=== PATIENT | female | born 1980 | race Caucasian/White ===

== ENCOUNTER 2020-06-07 20:02 | Inpatient (IN) | payer MEDICAID, SELFPAY ==
[2020-06-07 20:20] VITALS: BP 132/89; PULSE 116; RESP 35; TEMP 36.7; O2SAT 94; BMI 17.6
--- NOTE | 2020-06-07 20:24 | ED_ITS ---
HPI - Chest Pain General: Chief Complaint: Chest Pain Stated Complaint: cp/sob Time Seen by Provider: 06/07/20 20:23 History of Present Illness: HPI narrative: 40-year-old female comes in with chest pain. She states that on Thursday she thinks she may have aspirated. She states Thursday she woke up coughing and coughing and coughing. She states since that time she is having difficulty breathing. She has not had pneumonia or bronchitis previously. She states she started having chest pain yesterday. She points to the right side of her chest. She denies any arm, neck or jaw pain. Patient states that she smokes up to 3 packs/day. She denies fever c hills. No nausea or vomiting. No abdominal pain. MD complaint: chest pain (Right-sided chest pain.) Onset (ago): day(s) (She started coughing on Thursday with chest pain) Timing of current episode: constant Prior episodes: No Onset: during rest and awoke with symptoms Pain location: right chest Pain radiation: none Pain scale (0-10): 10 Quality: other (She states it feels like a charley horse in her chest.) Relieving factors: nothing Exacerbating factors: inspiration Associated symptoms: Reports dyspnea; Deny abdominal pain, diaphoresis, fever(s), nausea, palpitations, syncope or vomiting Treatment prior to arrival: none Review of Systems Narrative: 40-year-old female comes in with chest pain. She appears to be in mild distress. Const: Denies: fever(s), chills, body aches, fatigue, night sweats or diaphoresis Card: Reports: chest pain (Current chief complaint of chest pain), dyspnea on exertion and orthopnea; Denies: palpitations, irregular heart rhythm, edema, swelling of feet/ankles, lightheadedness, syncope or leg pain with exertion Resp: Reports: dyspnea, productive cough (Clear phlegm) and pain on inspiration; Denies: wheezing, change in phlegm color or hemoptysis GI: Denies: abdominal pain, nausea or vomiting : Denies: flank pain, difficulty voiding or dysuria Musc: Denies: neck pain Skin/Breast: Denies: rash or changes in skin color Neuro: Denies: headache(s), numbness in extremities, weakness in extremities, lack of coordination, difficulty walking, dizziness, vertigo, confusion or Slurred speech present Psych: Reports: anxiety PFSH ED PFSH: Medical History Marijuana abuse Smoker Surgical History (Updated 06/07/20 @ 22:33 by Jessee Figueroa MD) H/O: hysterectomy Family History (Updated 06/07/20 @ 22:35 by Jessee Figueroa MD) Mother Atelectasis Social History (Updated 06/07/20 @ 22:35 by Jessee Figueroa MD) Smoking and tobacco status: current every day smoker cigarettes [ Other cigarette details: Smokes 2 to 3 packs a day ] Alcohol intake: never Substance/Drug Use: current Substance/Drug use type: Marijuana Female Reproductive History: Date of last menstrual period: 06/05/20 Physical Exam Narrative: EXAM NARRATIVE: Patient appears to be having right-sided chest pain. Const: COMMON NORMALS: average body habitus, patient oriented x3, healthy appearing, alert and well nourished ORIENTATION/CONSCIOUSNESS: Yes oriented to person, Yes oriented to place and Yes oriented to time Eye: COMMON NORMALS: Equal, round and reactive pupils present, EOMs intact bilaterally and conjunctivae normal CONJUNCTIVA: Yes conjunctivae normal PUPIL: Yes Equal, round and reactive pupils present Neck/C-Spine: COMMON NORMALS: full ROM GENERAL: Yes normal visual inspection Chest: COMMONS NORMALS: normal inspection of the chest and normal palpation of entire chest wall Resp: EFFORT & INSPECTION: Yes able to speak in complete sentences, Yes respiratory distress (Mild respiratory distress.), Yes decreased respiratory effort, No audible wheezes, No tracheal deviation and No prolonged expiratory phase AUSCULTATION: no crackles, no rales, no rhonchi, no wheezes and diminished lung sounds Cardio: COMMON NORMALS: regular rhythm and Peripheral pulses 2+ throughout PALPATION: normal PMI RATE: tachycardic (Sinus tachycardia) RHYTHM: regular rhythm PERIPHERAL PULSES: Peripheral pulses 2+ throughout GI: COMMON NORMALS: Normal to inspection, nondistended, normoactive bowel sounds present, Soft to palpation, non-tender, No hepatosplenomegaly present, no masses and no bruits PALPATION: Yes Soft to palpation and Yes No hepatosplenomegaly present : COMMON NORMALS: Yes no CVA tenderness BLADDER/KIDNEY EXAM: Yes no CVA tenderness Back/Pelvis: COMMON NORMALS: no CVA tenderness Extremity: COMMON NORMALS: normal to inspection, full ROM, capillary refill normal, no calf tenderness and no pedal edema Neuro: COMMON NORMALS: patient oriented x3, moves all extremities and no focal motor deficits SENSORIUM/ORIENTATION: Yes alert, Yes oriented to person, Yes oriented to place and Yes oriented to time Psych: COMMON NORMALS: mental status grossly normal, Normal thought process present, cooperative, normal affect and speech normal ATTITUDE: Yes Other attitude/behavior findings present (Psych) (Mildly anxious.) SPEECH: Yes normal speech THOUGHT PROCESS: Normal thought process present Skin: COMMON NORMALS: no rashes or lesions noted, no wounds, turgor normal, no jaundice, no petechiae and no mottling GENERAL SKIN EXAM: no rashes or lesions noted and turgor normal Procedures Chest Tube Chest Tube 1: Chest Tube Location: left and mid axillary line Size of Tube (cm): 28 Chest Tube Prep: Yes betadine prep and sterile drapes applied Local Anesthetic: lidocaine 1% Amount of anesthesia used (mL): 12 (Lidocaine 1%) Incision Made With: #11 blade Post Procedure: sutured to skin and sterile dressing applied Tube Drainage: none Post Procedure CXR?: Yes Patient Tolerated Procedure: Yes Complications: pain Course Vital Signs: Vital signs: Vital Signs Temperature 98.0 F 06/07/20 20:20 Pulse Rate 109 H 06/07/20 22:20 Respiratory Rate 24 H 06/07/20 22:20 Blood Pressure 108/87 06/07/20 22:20 Pulse Oximetry 92 06/07/20 22:20 MDM - Chest Pain Lab Data: Labs: Lab Results 06/07/20 06/07/20 06/07/20 Range/Units 20:44 20:44 20:44 WBC 21.2 H (4.0-10.0) 10^3/ uL RBC 5.62 H (4.1-5.3) 10^6/u L Hgb 17.1 H (11.5-15.3) g/dL Hct 51.3 H (37.0-47.0) % MCV 91.3 (81-99) fL MCH 30.4 (28.0-34.0) pg MCHC 33.3 (30.0-36.0) g/dL RDW 13.3 (12.1-15.1) % Plt Count 490 H (130-400) 10^3/c mm MPV 9.5 (7.4-10.4) fL Neut % (Auto) 76.5 % Lymph % (Auto) 18.0 % [place] % (Auto) 4.5 % Eos % (Auto) 0.1 % Baso % (Auto) 0.5 % Neut # (Auto) 16.25 H (1.8-7.7) 10^3/u L Lymph # (Auto) 3.8 (0.8-4.8) 10^3/u L [place] # (Auto) 1.0 H (0.2-0.9) 10^3/u L Eos # (Auto) 0.0 (0.0-0.8) 10^3/u L Baso # (Auto) 0.1 (0.0-0.1) 10^3/u L Nucleated RBC % (a uto) 0 % Nucleated RBCs # 0.0 /100WBC Sodium 139 (136-145) mmol/L Potassium 4.7 (3.5-5.1) mmol/L Chloride 103 (98-107) mmol/L Carbon Dioxide 21 L (22-29) mmol/L Anion Gap 19.7 H (5-19) BUN 10 (6-20) mg/dL Creatinine 0.7 (0.5-0.9) mg/dL GFR Calculation 93.2 (90-130) mL/min Glucose 122 H (65-115) mg/dL Calculated Osmolal ity 288 (285-295) mOsm/k g Calcium 10.2 (8.5-10.5) mg/dL Total Bilirubin 0.8 (0.15-1.2) mg/dL AST 14 (0-32) U/L ALT 14 (0-33) U/L Alkaline Phosphata se 104 (35-105) IU/L Troponin T Baselin e 6 (0-10) ng/L Total Protein 7.7 (6.6-8.7) g/dL Albumin 5.0 (3.5-5.2) g/dL Globulin 2.7 (1.3-4.6) g/dL Urine Color (Yellow) Urine Appearance (CLEAR) Urine pH (5-7) Ur Specific Gravit y (1.005-1.030) Urine Protein (Negative) Urine Glucose (UA) (Normal) Urine Ketones (Negative) Urine Blood (Negative) Urine Nitrate (Negative) Urine Bilirubin (Negative) Urine Urobilinogen (Negative) mg/dL Ur Leukocyte Noemí ase (Negative) Urine RBC (0-2) /hpf Urine WBC (0-5) /hpf Ur Squamous Epith Cells (0-5) /hpf Amorphous Sediment Urine Bacteria (NONE) /hpf Urine Mucus /hpf Urine Opiates Scre en (Negative) ng/mL Ur Barbiturates Sc reen (Negative) ng/mL Ur Phencyclidine S crn (Negative) ng/mL Ur Amphetamines Sc reen (Negative) ng/mL U Benzodiazepines Scrn (Negative) ng/mL Urine Cocaine Scre en (Negative) ng/mL U Marijuana (THC) Screen (Negative) ng/mL 06/07/20 06/07/20 Range/Units 20:53 20:53 WBC (4.0-10.0) 10^3/ uL RBC (4.1-5.3) 10^6/u L Hgb (11.5-15.3) g/dL Hct (37.0-47.0) % MCV (81-99) fL MCH (28.0-34.0) pg MCHC (30.0-36.0) g/dL RDW (12.1-15.1) % Plt Count (130-400) 10^3/c mm MPV (7.4-10.4) fL Neut % (Auto) % Lymph % (Auto) % [place] % (Auto) % Eos % (Auto) % Baso % (Auto) % Neut # (Auto) (1.8-7.7) 10^3/u L Lymph # (Auto) (0.8-4.8) 10^3/u L [place] # (Auto) (0.2-0.9) 10^3/u L Eos # (Auto) (0.0-0.8) 10^3/u L Baso # (Auto) (0.0-0.1) 10^3/u L Nucleated RBC % (a uto) % Nucleated RBCs # /100WBC Sodium (136-145) mmol/L Potassium (3.5-5.1) mmol/L Chloride (98-107) mmol/L Carbon Dioxide (22-29) mmol/L Anion Gap (5-19) BUN (6-20) mg/dL Creatinine (0.5-0.9) mg/dL GFR Calculation (90-130) mL/min Glucose (65-115) mg/dL Calculated Osmolal ity (285-295) mOsm/k g Calcium (8.5-10.5) mg/dL Total Bilirubin (0.15-1.2) mg/dL AST (0-32) U/L ALT (0-33) U/L Alkaline Phosphata se (35-105) IU/L Troponin T Baselin e (0-10) ng/L Total Protein (6.6-8.7) g/dL Albumin (3.5-5.2) g/dL Globulin (1.3-4.6) g/dL Urine Color Yellow (Yellow) Urine Appearance Clear (CLEAR) Urine pH 5.0 (5-7) Ur Specific Gravit y 1.025 (1.005-1.030) Urine Protein Trace (Negative) Urine Glucose (UA) Norm (Normal) Urine Ketones 2+ H (Negative) Urine Blood 3+ H (Negative) Urine Nitrate Negative (Negative) Urine Bilirubin Neg (Negative) Urine Urobilinogen Norm (Negative) mg/dL Ur Leukocyte Noemí ase Negative (Negative) Urine RBC 5-10 H (0-2) /hpf Urine WBC 0-4 H (0-5) /hpf Ur Squamous Epith Cells 5-10 H (0-5) /hpf Amorphous Sediment Not Reportable Urine Bacteria 1+ H (NONE) /hpf Urine Mucus 2+ /hpf Urine Opiates Scre en Negative (Negative) ng/mL Ur Barbiturates Sc reen Negative (Negative) ng/mL Ur Phencyclidine S crn Negative (Negative) ng/mL Ur Amphetamines Sc reen Negative (Negative) ng/mL U Benzodiazepines Scrn Negative (Negative) ng/mL Urine Cocaine Scre en Negative (Negative) ng/mL U Marijuana (THC) Screen Positive H (Negative) ng/mL Discharge Plan Discharge Patient Disposition: Admitted As Inpatient Clinical Impression: Pneumothorax Qualifiers: Pneumothorax type: spontaneous, primary Qualified Code(s): J93.11 - Primary spontaneous pneumothorax Condition: Stable Coding Level of Care Code ED It Project Manager for [facility] Fwd Exam Comprehensive
--- NOTE | 2020-06-07 20:33 | XR_ITS ---
WS: [id number] Portable AP upright chest, 06/07/2020 Clinical Data: Chest pain, possible aspiration Comparison: None. Findings: There is a complete right pneumothorax with a small right effusion. No subcutaneous emphyse ma is seen. The left lung is normal. The heart is normal. Monitor leads are on the chest and abdomina l carmona. XR/XR chest 1V portable [id number] Impression: 100% right pneumothorax.
[2020-06-07 20:57] LABS: Basophils # 0.1 10^3/uL (0.0-0.1); Basophils % 0.5 %; Eosinophils % 0.1 %; Hematocrit 51.3 % (37.0-47.0); Hemoglobin 17.1 g/dL (11.5-15.3); Lymphocytes # 3.8 10^3/uL (0.8-4.8); Mean Corpuscular HGB Conc 33.3 g/dL (30.0-36.0); Mean Corpuscular Hemoglobin 30.4 pg (28.0-34.0); Mean Corpuscular Volume 91.3 fL (81-99); Mean Platelet Volume 9.5 fL (7.4-10.4); Monocytes % 4.5 %; Neutrophils # 16.25 10^3/uL (1.8-7.7); Neutrophils % 76.5 %; Nucleated Red Blood Cells % 0 %; Platelet Count 490 10^3/cmm (130-400); Red Blood Count 5.62 10^6/uL (4.1-5.3); Red Cell Distribution Width 13.3 % (12.1-15.1); White Blood Count 21.2 10^3/uL (4.0-10.0)
[2020-06-07 21:17] LABS: Alanine Aminotransferase 14 U/L (0-33); Alkaline Phosphatase 104 IU/L (35-105); Anion Gap 19.7 (5-19); Aspartate Amino Transferase 14 U/L (0-32); Blood Urea Nitrogen 10 mg/dL (6-20); Calcium 10.2 mg/dL (8.5-10.5); Carbon Dioxide 21 mmol/L (22-29); Chloride 103 mmol/L (98-107); Globulin 2.7 g/dL (1.3-4.6); Glomerular Filtration Rate 93.2 mL/min (90-130); Glucose 122 mg/dL (65-115); Osmolality Calculated 288 mOsm/kg (285-295); Potassium 4.7 mmol/L (3.5-5.1); Sodium 139 mmol/L (136-145); Total Bilirubin 0.8 mg/dL (0.15-1.2); Total Protein 7.7 g/dL (6.6-8.7)
[2020-06-07 21:18] LABS: Troponin(5th) Baseline 6 ng/L (0-10)
[2020-06-07] MEDS: morphine 4 mg/mL SDV 1 mL 2 MG IVP ×2 (21:30→22:06)
[2020-06-07 21:52] LABS: Add Urine Microscopic? YES; Bilirubin Urine Neg (Negative); Blood Urine 3+ (Negative); Glucose Urine UA Norm (Normal); Ketones Urine 2+ (Negative); Leukocyte Esterase Urine Negative (Negative); Nitrate Urine Negative (Negative); Protein Urine Trace (Negative); Specific Gravity, Urine 1.025 (1.005-1.030); Urine Appearance Clear (CLEAR); Urine Color Yellow (Yellow); Urobilinogen Urine Norm (Negative)
[2020-06-07 21:53] LABS: Add Urine Culture? No; Bacteria Urine 1+ /hpf; Mucus Urine 2+ /hpf; WBC Urine 0-4 /hpf (0-5)
[2020-06-07 21:54] LABS: Amphetamines Screen Urine Negative (Negative); Barbiturates Screen Urine Negative (Negative); Benzodiazepines Screen Urine Negative (Negative); Cocaine Screen Urine Negative (Negative); Opiate Screen Urine Negative (Negative); PCP Screen Urine Negative (Negative); THC Screen Urine Positive (Negative)
--- NOTE | 2020-06-07 22:04 | XR_ITS ---
WS: [id number] Portable AP upright chest, 06/07/2020, 2153 hours Clinical Data: POST CHEST TUBE Comparison: Portable chest, yesterday, 2038 hours Findings: A right chest tube has been inserted. The right lung has reexpanded and there is a Wesley X V percent right apical pneumothorax. The right lower lobe and right middle lobe has expanded complete ly. XR/XR chest 1V portable [id number] Impression: Insertion of right chest tube with reexpansion of right lung and only a small r ight apical pneumothorax persists.
[2020-06-07] MEDS: LORazepam 2 mg/mL INJ 1 mL 1 MG IVP (22:05)
[2020-06-07 22:20] VITALS: BP 108/87; PULSE 109; RESP 24; O2SAT 92
--- NOTE | 2020-06-07 22:30 | PM.HP ---
Providers/Chief Complaint Chief Complaint: cp/sob History of Present Illness Sylvia Snell is a 40 year old female who does not have significant past medical history other than marijuana abuse and nicotine dependence presented today with chief complaint of right-sided chest pain. Patient is stating that on Thursday she was eating her cereal when she choked on her food, she had extensive bouts of cough, after this aspiration episode she started having right-sided chest pain and next 12 hours, her pain persisted for next 1 day, she did not notice any fever, nausea, vomiting, diarrhea, dysuria. She decided to come to the hospital for worsening of right-sided chest discomfort. Diagnostics in the ER revealed spontaneous pneumothorax, chest tube was placed by Dr. Goodman, 28 Tanzanian chest tube placed with good expansion of right lung She is tachycardic and tachypneic because of pain, she has no source of infection, leukocytosis 21, chest x-ray does not show any consolidation, polycythemia on CBC, drug screen positive for marijuana, EKG showing sinus tachycardia, repeat chest x-ray showing good inflation of right lung with residual pneumothorax 2% Hemodynamically patient is stable Review of Systems Const: Reports: chills, body aches and fatigue; Denies: fever(s) Eyes: Denies: change in vision ENMT: Denies: throat pain Card: Reports: chest pain and dyspnea on exertion Resp: Reports: dyspnea, non-productive cough and pain on inspiration GI: Denies: abdominal pain : Denies: flank pain Musc: Denies: neck pain Skin/Breast: Denies: rash Neuro: Denies: headache(s) Psych: Reports: anxiety Endo: Denies: polyuria Moe/Lymph: Denies: easy bruising All/Imm: Denies: urticaria Medications/Allergies Allergies Allergy/AdvReac Type Severity Reaction Status Date / Time Unable to Assess Allergy Unverified 06/07/20 20:23 PFSH Acute PFSH: Medical History Marijuana abuse Smoker Surgical History H/O: hysterectomy Family History Mother Atelectasis Social History Smoking and tobacco status: current every day smoker cigarettes [ Other cigarette details: Smokes 2 to 3 packs a day ] Alcohol intake: never Substance/Drug Use: current Substance/Drug use type: Marijuana Female Reproductive History: Date of last menstrual period: 06/05/20 Vitals/I&O/Wt Last Vital Signs Temp 98.0 F 06/07/20 20:20 Pulse 109 H 06/07/20 22:20 Resp 24 H 06/07/20 22:20 BP 108/87 06/07/20 22:20 Pulse Ox 92 06/07/20 22:20 Weight last 48 hrs Weight 45.359 kg Physical Exam Narrative: EXAM NARRATIVE: Thin young female Currently in distress because of placement of chest tube, she has 28 Tanz[place] right mid axillary chest tube Chest tube drainage system is not showing any continuous bubbling, no active drainage, patient is saturating well on room air Normal hemodynamics S1, S2 sinus tachycardia Abdomen soft nontender bowel sound present Lower extremity no edema gangrene ulcer No acute respite distress Appropriate mood and affect EOMI, PERRLA No neurological deficit Data : 06/07/20 20:44 06/07/20 20:44 A&P Assessment and plan (1) Spontaneous pneumothorax: Spontaneous pneumothorax resolved 28 Tanzanian chest tube with satisfactory placement No signs of hemothorax, however still has 10 to 15% pneumothorax Hemodynamically stable No recent trauma Patient endorses to smoking heavily We will monitor in ICU overnight Would recommend her to follow-up with gas regulator repairer, I do not notice any abnormal transaminases, alpha-1 antitrypsin level deficiency suspicion low at this point Status: Acute (2) Leukocytosis: Patient's leukocytosis tachypnea tachycardia secondary to pain and spontaneous pneumothorax I do not see any source of infection, I would avoid adding antibiotics for now would request D-dimer and procalcitonin level We will start her on maintenance fluid to see if that would affect her heart rate Status: Acute (3) Nicotine dependence: Patient counseled extensively to quit smoking, Status: Acute Attestations Medical Necessity Statement*: Anticipating stay in the hospital to cross more than 2 midnights currently she requires ICU because of spontaneous pneumothorax and placement of chest tube in the ER currently hemodynamically stable Time Spent in Patient Care: (>than 50% of time spent in counselling and/or direct pt care on unit). 50mins Coding Level of Care Code Acute Qualitative Researcher for 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
--- NOTE | 2020-06-07 22:32 | PC.NURSE ---
EKG done at 2230 and shown to ER doctor
--- NOTE | 2020-06-07 22:33 | ECG_ITS ---
[facility] Test Date: 2020-06-07 Pat Name: Sylvia Snell Department: Room: Gender: Female Associate Veterinarian: : 1980 Requested By: Omar Valverde Order Number: [id number] Naina MD: Alena Edwards M.D. Measurements Intervals [place] Rate: 107 P: 94 ND: 127 QRS: -71 QRSD: 94 T: 79 QT: 322 QTc: 430 Interpretive Statements SINUS TACHYCARDIA RIGHT ATRIAL ENLARGEMENT [0.3mV P WAVE] LEFT AXIS DEVIATION [QRS AXIS < -30] INCOMPLETE RIGHT BUNDLE BRANCH BLOCK [90+ ms QRS DURATION, TERMINAL R IN V1/V2, 40+ ms S IN I/aVL/V4/V5/V6] No previous ECG available for comparison Electronically Signed On 06-08-2020 19:13:43 MARKETING SUPPORT COORDINATOR by Alena Edwards M.D. [email or web address]
[2020-06-07] MEDS: morphine 4 mg/mL SDV 1 mL IVP (22:36)
[2020-06-07 22:45] VITALS: BP 119/77; PULSE 107; RESP 22; O2SAT 94
[2020-06-07 22:58] LABS: Troponin 5 2HR 7.37 ng/L (0-10); Troponin 5 2HR Delta 1.37 ABS# (0-10)
[2020-06-07 23:44] LABS: D Dimer <= 0.27 ug/mIFEU (0-0.59)
[2020-06-07 23:51] VITALS: PULSE 92; RESP 28
[2020-06-07] MEDS: HYDROmorphone 1 mg/mL INJ 1 mL IVP (23:54)
[2020-06-07] MEDS: ondansetron 2 mg/ML SDV 2 mL 4 MG IVP (23:54)
[2020-06-07] MEDS: sodium chloride 0.9% 1,000 ML 75 ML IV (23:59)
[2020-06-08] VITALS (57 sets, daily range): BP systolic 95–146; BP diastolic 65–94; PULSE 60–105; RESP 13–54; TEMP 36.6; O2SAT 81–100
--- NOTE | 2020-06-08 00:06 | XR_ITS ---
WS: [id number] Portable AP upright chest, 06/08/2020, 2408 hours. Clinical Data: verify chest tube placement Comparison: Portable chest, yesterday, 2153 hours. Findings: There is no change from the prior chest x-ray. The right chest tube remains in the right pl eural space ending at the level of the right seventh rib. The right apical pneumothorax of 10-15% per sists. The right middle lobe and right lower lobe have reexpanded. XR/XR chest 1V portable [id number] Impression: No change from prior chest x-ray.
[2020-06-08 00:30] LABS: Procalcitonin 0.05 ng/mL (0-0.5)
[2020-06-08] MEDS: HYDROmorphone 1 mg/mL INJ 1 mL IVP ×10 (00:33→23:14)
--- NOTE | 2020-06-08 00:39 | XR_ITS ---
WS: [id number] Portable AP upright chest, 06/08/2020, 2436 hours Clinical Data: chest tube movement Comparison: Portable chest, today, 2408 hours. Findings: The right chest tube has been ingested but there is recurrence of the right pneumothorax. T here is a small amount of subcutaneous emphysema adjacent to the right fifth rib. XR/XR chest 1V portable [id number] Impression: 1. Recurrence of right pneumothorax. 2. Right chest tube has been minimally adjusted.
[2020-06-08] MEDS: lidocaine 1% INJ 20 mL INJECTION (00:53)
[2020-06-08 02:37] LABS: Basophils # 0.1 10^3/uL (0.0-0.1); Basophils % 0.3 %; Hematocrit 44.3 % (37.0-47.0); Hemoglobin 14.7 g/dL (11.5-15.3); Lymphocytes # 1.4 10^3/uL (0.8-4.8); Lymphocytes % 5.9 %; Mean Corpuscular HGB Conc 33.2 g/dL (30.0-36.0); Mean Corpuscular Hemoglobin 30.4 pg (28.0-34.0); Mean Corpuscular Volume 91.7 fL (81-99); Mean Platelet Volume 9.5 fL (7.4-10.4); Monocytes # 1.4 10^3/uL (0.2-0.9); Monocytes % 5.8 %; Neutrophils # 21.07 10^3/uL (1.8-7.7); Neutrophils % 87.5 %; Nucleated Red Blood Cells % 0 %; Platelet Count 420 10^3/cmm (130-400); Red Blood Count 4.83 10^6/uL (4.1-5.3); Red Cell Distribution Width 13.3 % (12.1-15.1); White Blood Count 24.1 10^3/uL (4.0-10.0)
[2020-06-08 03:22] LABS: Anion Gap 17.2 (5-19); Blood Urea Nitrogen 11 mg/dL (6-20); Calcium 8.8 mg/dL (8.5-10.5); Carbon Dioxide 21 mmol/L (22-29); Chloride 106 mmol/L (98-107); Glomerular Filtration Rate 111.3 mL/min (90-130); Glucose 130 mg/dL (65-115); Osmolality Calculated 291 mOsm/kg (285-295); Potassium 4.2 mmol/L (3.5-5.1); Sodium 140 mmol/L (136-145); Troponin 5 6HR 6.81 ng/L (0-10); Troponin 5 6HR Delta 0.81 ng/L (0-12)
--- NOTE | 2020-06-08 06:00 | XR_ITS ---
WS: [id number] Portable AP upright chest, 06/08/2020, 0522 hours Clinical Data: pneumothorax Comparison: Portable chest, today, 2436 hours Findings: The right chest tube has been repositioned and it ends near the right apex. The right apica l pneumothorax as disappeared. There is a small right basilar pneumothorax. XR/XR chest 1V portable [id number] Impression: 1. Right chest tube has been repositioned into the right apex and the right api meagan pneumothorax is no longer present. 2. Small right basilar pneumothorax.
[2020-06-08] MEDS: HYDROmorphone 1 mg/mL INJ 1 mL 0.5 MG IVP (06:13)
[2020-06-08] MEDS: sodium chloride 0.9% 1,000 ML 75 ML IV ×2 (08:10→21:18)
--- NOTE | 2020-06-08 08:25 | PC.NURSE ---
pain medication given at this time per pt request
--- NOTE | 2020-06-08 09:02 | PM.CONSULT ---
Providers/Reason For Consult Consulting Physican/Specialty*: General Surgery Johnny Falk MD Reason for Consult*: Spontaneous right pneumothorax, status post chest tube placement. Attending Physician: Jessee Figueroa MD History of Present Illness History of Present Illness Sylvia Snell is a 40 year old female who was eating cereal the evening before last and choked for about a minute when it went down the wrong pipe. The following day she awoke in the afternoon and had right-sided chest pain. She became more short of breath as the day went on and came to the emergency room where imaging revealed a right-sided pneumothorax. A chest tube was placed in the emergency room. The patient says this is never happened to her before but her mom had the same problem. Review of Systems General: Reports: 10 or more systems reviewed and unremarkable except in HPI and below Card: Reports: chest pain (With deep breaths) Meds/Allergies Home Medications and Allergies Allergies Allergy/AdvReac Type Severity Reaction Status Date / Time Unable to Assess Allergy Unverified 06/07/20 20:23 Current Medications Current Medications Generic Name Dose Route Start Last Admin Trade Name Freq PRN Reason Stop Dose Admin Hydromorphone HCl 1 mg 06/08/20 00:23 06/08/20 08:10 Hydromorphone 1 Mg/Ml Inj 1 Ml IVP 1 mg Q2H PRN Administration PAIN Sodium Chloride 1,000 mls @ 75 mls/hr 06/07/20 23:31 06/08/20 08:10 Sodium Chloride 0.9% IV 75 mls/hr .[id number] KEZIA Administration PFSH Acute PFSH: Medical History Marijuana abuse Smoker Surgical History (Updated 06/08/20 @ 09:10 by Johnny Falk MD) Status post chest tube placement right -- 05/2020 Family History Mother Atelectasis Social History Smoking and tobacco status: current every day smoker cigarettes [ Other cigarette details: Smokes 2 to 3 packs a day ] Alcohol intake: never Substance/Drug Use: current Substance/Drug use type: Marijuana Female Reproductive History: Date of last menstrual period: 06/05/20 Vitals/I&O/Wt Last Vital Signs Temp 97.8 F 06/08/20 06:00 Pulse 69 06/08/20 08:00 Resp 16 06/08/20 08:00 BP 108/78 06/08/20 08:00 Pulse Ox 98 06/08/20 08:00 06/07/20 06/08/20 06/08/20 22:59 06:59 14:59 Intake Total 763.75 / 763.75 Output Total 150 / 150 Balance -150 / -150 763.75 / 763.75 Weight last 48 hrs Weight 100 lb Physical Exam Narrative: EXAM NARRATIVE: The patient was seen in her room in the intensive care unit. She does not appear to be in any distress. The pupils seem equal. No carotid bruits are heard. The chest reveals symmetric apical air movement. The heart is regular. The abdomen is soft. The extremities reveal no edema. The chest tube reveals a small intermittent air leak. Urinary Catheter Management^: Pelayo: Cath Placed During This Visit: yes Reason for Continuing Indwelling Catheter: Accurate Measurement of Urinary Output in Critically Ill Patients Urinary Catheter Date of Insertion: 06/08/20 Urinary Catheter Time of Insertion: 01:34 A&P Assessment and plan (1) Spontaneous pneumothorax: The patient is status post right-sided chest tube placement in the emergency room. This apparently became partially dislodged when she was being transferred to the intensive care unit and had to be advanced once again. Her current x-ray shows almost complete resolution of her right-sided pneumothorax, but she does have what appears to be an intermittent air leak. I have spoken to Dr. Boyce from thoracic surgery. He is not planning on being available over the weekend so I will be happy to continue following the patient for now. If she has any kind of a persistent air leak after the weekend, however, I will advise getting him involved. Status: Acute Consult Attestations Medical Necessity Statement: See admitting service's notation. Coding Level of Care Code Acute Carry Out Clerk for Herm[facility] Diagnoses Spontaneous pneumothorax J93.83
--- NOTE | 2020-06-08 09:56 | PC.NURSE ---
Dr Falk here exam pt and chest tube at this time .. small leak noted and pain medicine given encourage to cough and deep breath
--- NOTE | 2020-06-08 12:12 | P.PN_ITS ---
Subjective Subjective: Interval history: Noted improvement in respiratory status however c/o chest pain at site of chest tube insertion, GS consulted. Medications: Reviewed: Yes Vitals/I&O/Wt Last Vital Signs Temp 97.8 F 06/08/20 06:00 Pulse 73 06/08/20 10:43 Resp 17 06/08/20 10:40 BP 113/79 06/08/20 10:00 Pulse Ox 97 06/08/20 10:40 06/07/20 06/08/20 06/08/20 22:59 06:59 14:59 Intake Total 763.75 / 763.75 Output Total 150 / 150 Balance -150 / -150 763.75 / 763.75 Weight last 48 hrs Weight 45.359 kg Physical Exam Narrative: EXAM NARRATIVE: Thin young female General - NAD, Awake alert Chest : Decrease BS at Right base - Chest tube drainage system is not showing any continuous bubbling, no active drainage CVS : S1, S2 sinus tachycardia Abdomen soft nontender bowel sound present Lower extremity no edema gangrene ulcer No neurological deficit Urinary Catheter Management^: Pelayo: Cath Placed During This Visit: yes Reason for Continuing Indwelling Catheter: Accurate Measurement of Urinary Ou tput in Critically Ill Patients Urinary Catheter Date of Insertion: 06/08/20 Urinary Catheter Time of Insertion: 01:34 Data : 06/08/20 02:28 06/08/20 02:28 A&P Assessment and plan (1) Spontaneous pneumothorax: Chest tube in place Noted air-leak D/w Dr. Falk - Consulted Follow on repeat xray No signs of hemothorax, however still has 10 to 15% pneumothorax Chest -x-ray in am Status: Acute (2) Leukocytosis: Daily CBC Afebrile Likely reactive Follow on pro-calcitonin Monitor off abx Status: Acute (3) Nicotine dependence: Patient counseled extensively to quit smoking, Nicotine Patch PRN Status: Acute Attestations Medical Necessity Statement*: Continue hospital stay for management of chest tube and respiratory ditress. Time Spent in Patient Care: Greater than 35 minutes (>than 50% of time spe nt in counselling and/or direct pt care on unit) . Coding Level of Care Code Acute Residential Building Inspector for [facility] Diagnoses Spontaneous pneumothorax J93.83 Leukocytosis D72.829 Nicotine dependence F17.200
--- NOTE | 2020-06-08 12:37 | PC.RESP ---
Smoking Cessation information sent to patient.
[2020-06-09] VITALS (57 sets, daily range): BP systolic 104–147; BP diastolic 66–86; PULSE 63–88; RESP 10–26; TEMP 36.6; O2SAT 95–100
[2020-06-09] MEDS: HYDROmorphone 1 mg/mL INJ 1 mL IVP ×4 (01:32→12:17)
[2020-06-09 04:27] LABS: Basophils # 0.1 10^3/uL (0.0-0.1); Basophils % 0.4 %; Eosinophils # 0.1 10^3/uL (0.0-0.8); Eosinophils % 0.8 %; Lymphocytes # 3.2 10^3/uL (0.8-4.8); Lymphocytes % 22.3 %; Mean Corpuscular HGB Conc 32.5 g/dL (30.0-36.0); Mean Corpuscular Hemoglobin 30.4 pg (28.0-34.0); Mean Corpuscular Volume 93.5 fL (81-99); Mean Platelet Volume 9.9 fL (7.4-10.4); Monocytes # 1.3 10^3/uL (0.2-0.9); Monocytes % 8.9 %; Neutrophils % 67.2 %; Nucleated Red Blood Cells % 0 %; Platelet Count 371 10^3/cmm (130-400); Red Blood Count 4.28 10^6/uL (4.1-5.3); Red Cell Distribution Width 13.2 % (12.1-15.1); White Blood Count 14.2 10^3/uL (4.0-10.0)
[2020-06-09 05:08] LABS: Alanine Aminotransferase 12 U/L (0-33); Albumin Level 3.7 g/dL (3.5-5.2); Alkaline Phosphatase 81 IU/L (35-105); Anion Gap 12.2 (5-19); Aspartate Amino Transferase 16 U/L (0-32); Blood Urea Nitrogen 9 mg/dL (6-20); Calcium 8.7 mg/dL (8.5-10.5); Carbon Dioxide 27 mmol/L (22-29); Chloride 103 mmol/L (98-107); Globulin 2.4 g/dL (1.3-4.6); Glomerular Filtration Rate 137.4 mL/min (90-130); Glucose 144 mg/dL (65-115); Osmolality Calculated 287 mOsm/kg (285-295); Potassium 4.2 mmol/L (3.5-5.1); Sodium 138 mmol/L (136-145); Total Bilirubin 0.6 mg/dL (0.15-1.2); Total Protein 6.1 g/dL (6.6-8.7)
--- NOTE | 2020-06-09 06:00 | XRR_ITS ---
PROCEDURE INFORMATION: Exam: XR Chest, 1 View Exam date and time: 06/09/2020 5:49 AM Age: 40 years old Clinical indication: Patient HX: F/u for pneumothorax. Chest tube in place. TECHNIQUE: Imaging protocol: XR of the chest Views: 1 view. COMPARISON: CR XR chest 1V portable [id number] 06/08/2020 5:21 AM FINDINGS: Tubes, catheters and devices: Similar position of right chest tube. Lungs: Interstitial pneumonitis or infiltrate right lower lung. Pleural space: Repositioned or redeveloped small right apical pneumothorax. Left apical pleural thickening with a suspected left apical bulla. Pleural thickening or small effusion blunting the right costophrenic angle. Heart/Mediastinum: Unremarkable. No cardiomegaly. Bones/joints: Unremarkable. XR/XR chest 1V portable [id number] IMPRESSION: 1. Redemonstration of small right apical pneumothorax . 2. Interstitial thickening or infiltrate right lower lobe.
--- NOTE | 2020-06-09 08:03 | P.PN_ITS ---
Subjective Subjective: Interval history: The patient says she seems to be doing better. Her breathing is easier. Vitals/I&O/Wt Last Vital Signs Temp 97.9 F 06/08/20 20:30 Pulse 69 06/09/20 06:00 Resp 16 06/09/20 06:00 BP 108/75 06/09/20 06:00 Pulse Ox 99 06/09/20 06:00 06/08/20 06/09/20 06/09/20 22:59 06:59 14:59 Intake Total 1485 / 2598.75 100 / 2598.75 Output Total 555 / 815 260 / 815 Balance 930 / 1783.75 -160 / 1783.75 Weight last 48 hrs Weight 100 lb Physical Exam Narrative: EXAM NARRATIVE: The patient still has good apical air movement on exam. She still appears to have a small air leak on suction, however. Urinary Catheter Management^: Pelayo: Cath Placed During This Visit: yes Reason for Continuing Indwelling Catheter: Accurate Measurement of Urinary Output in Critically Ill Patients Urinary Catheter Date of Insertion: 06/08/20 Urinary Catheter Time of Insertion: 01:34 Data : 06/09/20 03:55 06/09/20 03:55 A&P Assessment and plan (1) Spontaneous pneumothorax: Chest x-ray looks good. The patient still appears to have a slow air leak on suction. Continue chest tube. I have spoken to Dr. Boyce from thoracic surgery. He is not planning on being available over the weekend so I will be happy to continue following the patient for now. If she has any kind of a persistent air leak after the weekend, however, I will advise getting him involved. Status: Acute Attestations Medical Necessity Statement*: See admitting service's notation. Coding Level of Care Code Acute Highway Administrative Engineer for [facility] Diagnoses Spontaneous pneumothorax J93.83
[2020-06-09] MEDS: sodium chloride 0.9% 1,000 ML 75 ML IV (10:31)
[2020-06-09] MEDS: sennosides-docusate Tablet 1 TAB PO (10:31)
--- NOTE | 2020-06-09 15:42 | PM.PN ---
Subjective Subjective: Interval history: Improving No new complaints Medications: Reviewed: Yes Vitals/I&O/Wt Last Vital Signs Temp 97.9 F 06/09/20 22:00 Pulse 78 06/09/20 22:00 Resp 20 H 06/09/20 22:00 BP 118/66 06/09/20 22:00 Pulse Ox 99 06/09/20 22:00 06/09/20 06/09/20 06/09/20 06:59 14:59 22:59 Intake Total 100 / 2598.75 1431.25 / 1431.25 520 / 1951.25 Output Total 260 / 815 110 / 110 Balance -160 / 1783.75 1431.25 / 1431.25 410 / 1841.25 Physical Exam Narrative: EXAM NARRATIVE: Thin young female General - NAD, Awake alert Chest : Decrease BS at Right base - Chest tube drainage system is not showing any continuous bubbling, no active drainage CVS : S1, S2 sinus tachycardia Abdomen soft nontender bowel sound present Lower extremity no edema gangrene ulcer No neurological deficit Urinary Catheter Management^: Pelayo: Cath Placed During This Visit: yes Reason for Continuing Indwelling Catheter: Accurate Measurement of Urinary Output in Critically Ill Patients Urinary Catheter Date of Insertion: 06/08/20 Urinary Catheter Time of Insertion: 01:34 Data : 06/09/20 03:55 06/09/20 03:55 A&P Assessment and plan (1) Spontaneous pneumothorax: Chest tube in place Noted air-leak Surgery on board No signs of hemothorax, however still has 10 to 15% pneumothorax Chest -x-ray in am Status: Acute (2) Leukocytosis: Daily CBC Afebrile Likely reactive Follow on pro-calcitonin Monitor off abx Status: Acute (3) Nicotine dependence: Patient counseled extensively to quit smoking, Nicotine Patch PRN Status: Acute Attestations Medical Necessity Statement*: require further hospitalization for management of chest tube Time Spent in Patient Care: Greater than 35 minutes Coding Level of Care Code Acute Chief Of Surgery for Hermes Abrams Diagnoses Spontaneous pneumothorax J93.83 Leukocytosis D72.829 Nicotine dependence F17.200
--- NOTE | 2020-06-09 18:37 | PC.NURSE ---
24 hour PICC line dressing changed. Sterile technique maintained. Pt starting to blink eyes when his name is called.
[2020-06-09] MEDS: oxyCODONE-APAP 5-325 mg Tablet PO (19:54)
[2020-06-10] VITALS (37 sets, daily range): BP systolic 98–141; BP diastolic 68–99; PULSE 67–723; RESP 12–26; TEMP 36.4–36.7; O2SAT 86–100
[2020-06-10] MEDS: oxyCODONE-APAP 5-325 mg Tablet PO ×4 (00:35→20:29)
[2020-06-10] MEDS: sennosides-docusate Tablet 1 TAB PO (08:21)
--- NOTE | 2020-06-10 08:22 | PC.NURSE ---
Med scan. Scanner would not work. continued to blink red and not scan pt or medication. New battery put in and scanned cart to reset. attempted several times. All meds and pt put in manually.
--- NOTE | 2020-06-10 08:44 | PC.NURSE ---
Pt assisted up to chair. Tolerated well. 1 pain tablet given. Will reassess in 30 min.
--- NOTE | 2020-06-10 10:43 | PM.PN ---
Subjective Subjective: Interval history: The patient is feeling better daily. Nursing reports a continued air leak from the chest tube. Vitals/I&O/Wt Last Vital Signs Temp 97.9 F 06/10/20 00:00 Pulse 78 06/10/20 08:55 Resp 21 H 06/10/20 08:57 BP 141/99 06/10/20 08:00 Pulse Ox 97 06/10/20 08:57 06/09/20 06/10/20 06/10/20 22:59 06:59 14:59 Intake Total 520 / 3051.25 1100 / 3051.25 220 / 220 Output Total 710 / 1720 1010 / 1720 Balance -190 / 1331.25 90 / 1331.25 220 / 220 Physical Exam Narrative: EXAM NARRATIVE: The patient still has good apical air movement on the right side. The chest tube appears to have a slow but fairly continuous air leak. The clamp on the second chest tube chamber was reclamped today, but the air leak seemed to continue. Urinary Catheter Management^: Pelayo: Cath Placed During This Visit: yes Reason for Continuing Indwelling Catheter: Accurate Measurement of Urinary Output in Critically Ill Patients Urinary Catheter Date of Insertion: 06/08/20 Urinary Catheter Time of Insertion: 01:34 Data : 06/09/20 03:55 06/09/20 03:55 A&P Assessment and plan (1) Spontaneous pneumothorax: Chest x-ray looks good; if the patient does have a small residual pneumothorax it is tiny. The patient still appears to have a slow air leak on suction, however. Continue chest tube. I have spoken to Dr. Boyce from thoracic surgery as of late last week. He was not planning on being available over the weekend but if the patient's air leak continues into tomorrow, I will advise getting him involved. Status: Acute Attestations Medical Necessity Statement*: See admitting service's notation. Coding Level of Care Code Acute Value Analysis Coordinator for Hermes Abrams Diagnoses Spontaneous pneumothorax J93.83
--- NOTE | 2020-06-10 12:52 | PC.NURSE ---
Pt very anxious and arguing with her . Has a lot of concerns regarding COVID pts being in hospital and she being here as well. jingle writer visited with pt and she seems to be calmer at this time. Will continue to monitor.
--- NOTE | 2020-06-10 13:47 | PC.NURSE ---
Report called To ISABEL Vieyra. Taken up in wheelchair.
--- NOTE | 2020-06-10 14:57 | P.PN_ITS ---
Subjective Subjective: Interval history: No complaints from patient, continue air leak Medications: Reviewed: Yes Vitals/I&O/Wt Last Vital Signs Temp 97.6 F 06/10/20 13:44 Pulse 73 06/10/20 13:44 Resp 16 06/10/20 13:44 BP 123/81 06/10/20 13:44 Pulse Ox 96 06/10/20 13:44 06/09/20 06/10/20 06/10/20 22:59 06:59 14:59 Intake Total 520 / 1951.25 1100 / 3051.25 560 / 560 Output Total 710 / 710 1010 / 1720 Balance -190 / 1241.25 90 / 1331.25 560 / 560 Physical Exam Narrative: EXAM NARRATIVE: Thin young female General - NAD, Awake alert Chest : Decrease BS at Right base - Chest tube drainage system is not showing any continuous bubbling, no active drainage CVS : S1, S2 sinus tachycardia Abdomen soft nontender bowel sound present Lower extremity no edema gangrene ulcer No neurological deficit Urinary Catheter Management^: Pelayo: Cath Placed During This Visit: yes Reason for Continuing Indwelling Catheter: Accurate Measurement of Urinary Output in Critically Ill Patients Urinary Catheter Date of Insertion: 06/08/20 Urinary Catheter Time of Insertion: 01:34 Data : 06/09/20 03:55 06/09/20 03:55 A&P Assessment and plan (1) Spontaneous pneumothorax: Chest tube in place Noted air-leak Surgery on board No signs of hemothorax, however still has 10 to 15% pneumothorax Chest -x-ray in am Plan to consult CTS in am Status: Acute (2) Leukocytosis: Daily CBC - Improving off abx Afebrile Likely reactive Monitor off abx Status: Acute (3) Nicotine dependence: Patient counseled extensively to quit smoking, Nicotine Patch PRN Status: Acute Attestations Medical Necessity Statement*: Continue current hospitalization for management of ptx requring chest tube Time Spent in Patient Care: Greater than 35 minutes (>than 50% of time spent in counselling and/or direct pt care on unit) . Coding Level of Care Code Acute Computer Training Specialist for [facility] Diagnoses Spontaneous pneumothorax J93.83 Leukocytosis D72.829 Nicotine dependence F17.200
[2020-06-10] MEDS: sodium chloride 0.9% 1,000 ML 75 ML IV ×2 (18:04)
[2020-06-11] VITALS (10 sets, daily range): BP systolic 112–128; BP diastolic 72–80; PULSE 65–90; RESP 16–18; TEMP 36.6–37.1; O2SAT 96–98
[2020-06-11] MEDS: oxyCODONE-APAP 5-325 mg Tablet PO ×4 (03:29→20:06)
[2020-06-11 04:53] LABS: Basophils # 0.1 10^3/uL (0.0-0.1); Basophils % 0.6 %; Eosinophils # 0.3 10^3/uL (0.0-0.8); Eosinophils % 2.1 %; Hematocrit 41.5 % (37.0-47.0); Hemoglobin 13.9 g/dL (11.5-15.3); Lymphocytes # 3.4 10^3/uL (0.8-4.8); Lymphocytes % 25.2 %; Mean Corpuscular HGB Conc 33.5 g/dL (30.0-36.0); Mean Corpuscular Hemoglobin 30.5 pg (28.0-34.0); Mean Corpuscular Volume 91.2 fL (81-99); Mean Platelet Volume 9.7 fL (7.4-10.4); Monocytes # 1.1 10^3/uL (0.2-0.9); Monocytes % 8.1 %; Neutrophils # 8.61 10^3/uL (1.8-7.7); Neutrophils % 63.6 %; Nucleated Red Blood Cells % 0 %; Platelet Count 374 10^3/cmm (130-400); Red Blood Count 4.55 10^6/uL (4.1-5.3); Red Cell Distribution Width 12.7 % (12.1-15.1); White Blood Count 13.5 10^3/uL (4.0-10.0)
[2020-06-11 05:17] LABS: Anion Gap 14.5 (5-19); Blood Urea Nitrogen 7 mg/dL (6-20); Carbon Dioxide 25 mmol/L (22-29); Chloride 101 mmol/L (98-107); Glomerular Filtration Rate 177.7 mL/min (90-130); Glucose 98 mg/dL (65-115); Osmolality Calculated 282 mOsm/kg (285-295); Potassium 3.5 mmol/L (3.5-5.1); Sodium 137 mmol/L (136-145)
--- NOTE | 2020-06-11 07:00 | XR_ITS ---
WS: [id number] Exam: XR chest 1V portable [id number] Date/Time of Exam: 06/11/2020 6:25 AM Reason For Exam: respiratory failure Comparison 06/09/2020. Very small right apical pneumothorax persists. Right chest tube is in place unchanged. The left lung is fully expanded. There is pulmonary hyperinflation. Normal cardiomediastinal structures noted. Mini mal soft tissue air along the upper right rib cage. XR/XR chest 1V portable [id number] IMPRESSION: 1. Tiny right apical pneumothorax estimated at less than 5%. No change. 2. Pulmonary hyperinflation which may indicate obstructive lung disease.
--- NOTE | 2020-06-11 09:48 | P.PN_ITS ---
Subjective Subjective: Interval history: Out of the intensive care unit up on the second floor. She has no new complaints. Her Pleur-evac seems to indicate an ongoing air leak. She said it seemed to stop for a couple hours yesterday but then resumed after she was up moving around somewhat. Vitals/I&O/Wt Last Vital Signs Temp 98.4 F 06/11/20 07:20 Pulse 71 06/11/20 07:20 Resp 18 06/11/20 07:20 BP 117/79 06/11/20 07:20 Pulse Ox 97 06/11/20 07:20 06/10/20 06/11/20 06/11/20 22:59 06:59 14:59 Intake Total 120 / 120 Output Total 1800 / 2210 410 / 2210 Balance -1800 / -650 -410 / -650 120 / 120 Physical Exam Narrative: EXAM NARRATIVE: No significant change. Pleur-evac shows a continued air leak on 20 cm of suction. Urinary Catheter Management^: Pelayo: Cath Placed During This Visit: yes, but has since been removed by the nurse Reason for Continuing Indwelling Catheter: Accurate Measurement of Urinary Output in Critically Ill Patients Urinary Catheter Date of Insertion: 06/08/20 Urinary Catheter Time of Insertion: 01:34 Date Urinary Catheter Removed: 06/10/20 Time Urinary Catheter Discontinued: 20:54 Data : 06/11/20 04:40 06/11/20 04:40 A&P Assessment and plan (1) Spontaneous pneumothorax: The patient appears to have a continuing air leak following a right spontaneous pneumothorax. Plans to consult cardiothoracic surgery this morning are noted. Consequently, I will not continue to see the patient daily, but will be available if any further help is needed. Status: Acute Attestations Medical Necessity Statement*: See admitting service's notation. Coding Level of Care Code Acute Director Of Event Sales for Hermes Abrams Diagnoses Spontaneous pneumothorax J93.83
[2020-06-11] MEDS: ALPRAZolam 0.25 mg Tablet PO (10:11)
--- NOTE | 2020-06-11 14:08 | PM.PN ---
Subjective Subjective: Interval history: Patient as feeling anxious, no respiratory distress. no fever, chills,nausea or vomiting. Medications: Reviewed: Yes Vitals/I&O/Wt Last Vital Signs Temp 97.8 F 06/11/20 11:51 Pulse 74 06/11/20 11:51 Resp 18 06/11/20 11:51 BP 112/80 06/11/20 11:51 Pulse Ox 98 06/11/20 11:51 06/10/20 06/11/20 06/11/20 22:59 06:59 14:59 Intake Total 120 / 120 Output Total 1800 / 1800 410 / 2210 400 / 400 Balance -1800 / -240 -410 / -650 -280 / -280 Physical Exam Narrative: EXAM NARRATIVE: Thin young female General - NAD, Awake alert Chest : Decrease BS at Right base - Chest tube drainage system is not showing any continuous bubbling, no active drainage CVS : S1, S2 sinus tachycardia Abdomen soft nontender bowel sound present Lower extremity no edema gangrene ulcer No neurological deficit Urinary Catheter Management^: Pelayo: Cath Placed During This Visit: yes, but has since been removed by the nurse Reason for Continuing Indwelling Catheter: Accurate Measurement of Urinary Output in Critically Ill Patients Urinary Catheter Date of Insertion: 06/08/20 Urinary Catheter Time of Insertion: 01:34 Date Urinary Catheter Removed: 06/10/20 Time Urinary Catheter Discontinued: 20:54 Data : 06/11/20 04:40 06/11/20 04:40 A&P Assessment and plan (1) Spontaneous pneumothorax: Chest tube in place Noted air-leak Surgery on board No signs of hemothorax, however still has 10 to 15% pneumothorax Chest -x-ray in am Unable to connect with CTS Status: Acute (2) Leukocytosis: Daily CBC - Improving off abx Afebrile Likely reactive Monitor off abx Status: Acute (3) Nicotine dependence: Patient counseled extensively to quit smoking, Nicotine Patch PRN Status: Acute Attestations Medical Necessity Statement*: Continue hospitalization for management of chest tube, ptx Time Spent in Patient Care: Greater than 35 minutes (>than 50% of time spent in counselling and/or direct pt care on unit). Coding Level of Care Code Acute Tier Lift Truck Operator for [facility] Diagnoses Spontaneous pneumothorax J93.83 Leukocytosis D72.829 Nicotine dependence F17.200
--- NOTE | 2020-06-11 20:00 | PC.NURSE ---
BEGINNING SHIFT NOTE ADDED NS TO FILL LINE OF RIGHT LATERAL CHEST TUBE -SCATTERED CREPITUS NOTED - WILL CONTINUE TO MONITOR
[2020-06-12] VITALS (12 sets, daily range): BP systolic 106–146; BP diastolic 71–87; PULSE 64–98; RESP 16–18; TEMP 36.5–36.7; O2SAT 96–99
[2020-06-12] MEDS: oxyCODONE-APAP 5-325 mg Tablet PO ×4 (00:51→23:02)
[2020-06-12 03:01] LABS: Anion Gap 12.1 (5-19); Blood Urea Nitrogen 14 mg/dL (6-20); Calcium 9.5 mg/dL (8.5-10.5); Carbon Dioxide 29 mmol/L (22-29); Chloride 100 mmol/L (98-107); Glomerular Filtration Rate 137.4 mL/min (90-130); Glucose 100 mg/dL (65-115); Osmolality Calculated 285 mOsm/kg (285-295); Potassium 4.1 mmol/L (3.5-5.1); Sodium 137 mmol/L (136-145)
[2020-06-12] MEDS: sennosides-docusate Tablet 1 TAB PO (07:59)
--- NOTE | 2020-06-12 11:49 | P.CONIM_ITS ---
Providers/Reason For Consult Consulting Physican/Specialty*: Boyce/cardiothoracic surgery Reason for Consult*: Spontaneous right pneumothorax status post thoracostomy tube treatment with persistent though decreasing air leak Attending Physician: Luz Maria Osborne History of Present Illness History of Present Illness Sylvia Snell is a 40 year old female who was admitted on June 07 after presenting with acute right-sided chest discomfort and determined to have about a 60% right pneumothorax. She was initially treated with a small bore right chest tube in the emergency department. Dr. Falk from general surgery was consulted and is followed the patient since admission. Chest tube did require advancement the following day due to a partial dislodgment for about 2 days with noted last chest tube outside the chest wall cavity. Dr. Osborne reports that the air leak has slowly decreased over the past 48 hours though is still intermittently present. Patient symptoms have clearly improved after resolution of the pneumothorax. There is a small reported apical pneumothorax remaining though this appears to be decreasing in volume. Family history does include a spontaneous pneumothorax in her mother. Patient reports the day prior to her chest discomfort she did have a coughing episode during aspiration while eating cereal. Initially observed in the ICU for couple days and has now been transferred to the [facility] where she continues to do well. I do note a small but persistent air leak and have confirmed by integrity testing that this does appear to be a physiologic airleak and not a Pleur-evac system failure. She does have a long history of tobacco use since age 14 and continues to smoke up to this admission. Review of Systems Const: Denies: fever(s), chills, change in appetite, change in weight, fatigue or night sweats Eyes: Denies: change in vision or blurry vision ENMT: Denies: odynophagia or hoarseness Card: Denies: chest pain, palpitations, irregular heart rhythm or edema Resp: Reports: dyspnea (Essentially improved with thoracostomy tube placement) and non-productive cough; Denies: productive cough GI: Denies: abdominal pain, nausea, vomiting, dysphagia, heartburn or change in bowel habits : Denies: dysuria, urinary frequency, urinary urgency or urinary hesitancy Musc: Denies: extremity pain or extremity swelling Skin/Breast: Denies: rash Neuro: Denies: headache(s), numbness in extremities, weakness in extremities or sensory changes Psych: Denies: anxiety, depression or change in appetite Endo: Denies: polyuria, polydipsia or cold intolerance Moe/Lymph: Denies: easy bruising, easy bleeding, petechiae or enlarged lymph nodes Meds/Allergies Home Medications and Allergies Home Medications Medication Instructions Recorded Confirmed Last Taken Type No Known Home Medications 06/08/20 06/08/20 Unknown History Allergies Allergy/AdvReac Type Severity Reaction Status Date / Time amoxicillin [From Augmentin] Allergy Intermediate ADR-Vomitin Verified 06/10/20 13:47 g clavulanic acid Allergy Intermediate ADR-Vomitin Verified 06/10/20 13:47 [From Augmentin] g Current Medications Current Medications Generic Name Dose Route Start Last Admin Trade Name Freq PRN Reason Stop Dose Admin Nicotine 1 patch 06/11/20 09:34 06/12/20 07:59 Nicotine 21 Mg Patch TRANSDERMA Not Given DAILY KEZIA Oxycodone/Acetaminophen 1 - 2 tab 06/09/20 18:10 06/12/20 10:55 Oxycodone-Apap 5-325 Mg Tablet PO 2 tab Q4H PRN Administration MODERATE TO SEVERE PAIN Senna/Docusate Sodium 1 tab 06/08/20 09:00 06/12/20 07:59 Sennosides-Docusate Tablet PO 1 tab DAILY KEZIA Administration PFSH Acute PFSH: Medical History Marijuana abuse Smoker Surgical History Status post chest tube placement right -- 05/2020 Family History Mother Atelectasis Social History Smoking and tobacco status: current every day smoker cigarettes [ Other cigarette details: Smokes 2 to 3 packs a day ] Alcohol intake: never Substance/Drug Use: current Substance/Drug use type: Marijuana Female Reproductive History: Date of last menstrual period: 06/05/20 Vitals/I&O/Wt Last Vital Signs Temp 98.1 F 06/12/20 07:33 Pulse 73 06/12/20 08:31 Resp 18 06/12/20 10:55 BP 118/78 06/12/20 07:33 Pulse Ox 99 06/12/20 08:31 06/11/20 06/12/20 06/12/20 22:59 06:59 14:59 Intake Total 120 / 240 120 / 360 240 / 240 Output Total 300 / 700 605 / 1305 Balance -180 / -460 -485 / -945 240 / 240 Physical Exam Const: COMMON NORMALS: patient oriented x3 and alert ORIENTATION/CONSCIOUSNESS: Yes oriented to person, Yes oriented to place and Yes oriented to time HENMT: COMMON NORMALS: normocephalic HEAD & SCALP: normocephalic and cranial bruits Neck/C-Spine: COMMON NORMALS: full ROM, supple, no JVD and No carotid bruits GENERAL: Yes trachea midline CERVICAL SPINE: Yes cervical ROM normal Chest: COMMONS NORMALS: normal inspection of the chest and normal palpation of entire chest wall Resp: COMMON NORMALS: normal respiratory effort, No use of accessory muscles, clear to auscultation bilaterally and percussion normal EFFORT & INSPECTION: Yes able to speak in complete sentences and Yes symmetric chest movement AUSCULTATION: clear to auscultation bilaterally PERCUSSION: percussion normal Cardio: COMMON NORMALS: no JVD, regular rate, regular rhythm, S1 normal heart sound present, S2 normal heart sound present, No gallops present (Cardio), No murmurs present (Cardio), No rub (Cardio) and Peripheral pulses 2+ throughout JUGULAR VENOUS DISTENTION: no JVD RATE: regular rate RHYTHM: regular rhythm HEART SOUNDS: S1 normal heart sound present and S2 normal heart sound present PERIPHERAL PULSES: Peripheral pulses 2+ throughout Neuro: COMMON NORMALS: patient oriented x3, no focal motor deficits and no sensory deficits noted SENSORIUM/ORIENTATION: Yes alert, Yes oriented to person, Yes oriented to place and Yes oriented to time GAIT: Yes Normal gait present Urinary Catheter Management^: Pelayo: Cath Placed During This Visit: yes, but has since been removed by the nurse Reason for Continuing Indwelling Catheter: Accurate Measurement of Urinary Output in Critically Ill Patients Urinary Catheter Date of Insertion: 06/08/20 Urinary Catheter Time of Insertion: 01:34 Date Urinary Catheter Removed: 06/10/20 Time Urinary Catheter Discontinued: 20:54 A&P Assessment and plan (1) Spontaneous pneumothorax: 40-year-old thin female with first-time spontaneous right pneumothorax. Persistent air leak status post thoracostomy tube treatment for the past 4 days. Recommendation: We will obtain a CT scan of the chest with contrast for assessment of bullous disease. If this is substantial, with persistent air leak, I would recommend right thoracoscopy with bleb resection and pleurodesis tomorrow evening. Yet the pathology is not substantial, and if airleak continues through the evening, I would recommend transitioning to a right apical thoracic vent and removal of the chest tube. This will allow for improved mobility and if the treatment is satisfactory, would also allow for outpatient management with the apical been in position. Rationale to consider thoracic vent for possible thoracoscopy with bleb resection and pleurodesis was frankly discussed. Details and risks of the procedures were carefully and frankly discussed. Risks reviewed include the possibility of , stroke, heart attack, major bleeding, injury to the heart, lungs, or major vascular structures, infection, pneumonia, organ failure, failure to benefit, prolonged hospital stay, prolonged air leak for prolonged need chest tube, pain after the procedure, need for further procedures, recurrence of the pneumothorax, inability to complete the procedure, and possible need for long-term followup. All questions were answered. Appropriate consents will be provided for review and signature. I did discuss with her the strong necessity to stop tobacco use with a propensity for recurrent problems related to her pulmonary status. We will tentatively plan to perform either right thoracic vent placement or right thoracoscopy with bleb resection and pleurodesis tomorrow afternoon. Decision for this will be made after review of CT scan of chest with contrast which I am ordering to be performed this afternoon. We will discuss further with patient and family. Status: Acute Consult Attestations Medical Necessity Statement: Spontaneous pneumothorax with persistent air leak. Time Spent in Patient Care: Greater than 35 minutes Coding Level of Care Code New Pt Acute Residential Substance Abuse Counselor for Chg Fwd Patient Type New Exam Detailed Medical Decision Making Moderate Complexity Diagnoses Spontaneous pneumothorax J93.83 Time Spent (min) 30
--- NOTE | 2020-06-12 12:21 | CT_ITS ---
WS: [id number] CT CHEST TECHNIQUE: Contrast enhanced CT of the chest with coronal and sagittal reformatted images. CLINICAL INFORMATION: Spontaneous pneumothorax/persistent air leak COMPARISON: Radiograph June 11, 2020 DLP: 347.[address] scans at [facility] use at least one of these dose optimization techniques: automat ed exposure control; mA and/or kV adjustment per patient size (includes targeted exams where dose is matched to clinical indication); or iterative reconstruction. FINDINGS: Moderate chronic emphysematous changes. Right chest tube with tip near the right lung apex. Residual small right anterior pneumothorax in the right mid and lower lobe layering anteriorly and peripherall y. Subcutaneous emphysema partially visualized in the right lower lateral and posterior chest wall. Left lung is well aerated. No acute pulmonary infiltrates. Normal caliber thoracic aorta. No axillary lymphadenopathy. No mediastinal or hilar lymphadenopathy. Adrenal glands are normal. Prominent right renal pelvis part ially visualized. Mild diffuse fatty infiltration of the liver. Dense bilateral breast tissue. Well-circumscribed low-attenuation lesion in the right superolateral b reast measuring 2.2 x 1.6 cm may represent a breast cyst but indeterminant. This can be further evalu ated with right diagnostic mammography and ultrasound. CT/CT chest w con* [id number] IMPRESSION: 1. Right chest tube appears in good position with tip at the right lung apex. Small residual right anterior pneumothorax in the mid and lower lung. 2. No acute pulmonary infiltrates. Moderate chronic emphysematous changes with bulla formation in the lung apices. 3. No mediastinal or hilar lymphadenopathy. 4. Dense bilateral breast tissue with well-circumscribed 2.2 x 1.5 cm ovoid le chris upper outer right breast. Recommend further evaluation with right diagnost ic mammography and ultrasound.
[2020-06-12] MEDS: iohexol 300 mg/mL 100 mL Btl IV (13:06)
--- NOTE | 2020-06-12 14:01 | PM.PN ---
Subjective Subjective: Interval history: Ongoing air leak No new complaints. Medications: Reviewed: Yes Vitals/I&O/Wt Last Vital Signs Temp 97.9 F 06/12/20 12:00 Pulse 87 06/12/20 12:00 Resp 17 06/12/20 12:00 BP 106/71 06/12/20 12:00 Pulse Ox 98 06/12/20 12:00 06/11/20 06/12/20 06/12/20 22:59 06:59 14:59 Intake Total 120 / 240 120 / 360 540 / 540 Output Total 300 / 700 605 / 1305 Balance -180 / -460 -485 / -945 540 / 540 Physical Exam Narrative: EXAM NARRATIVE: Thin young female General - NAD, Awake alert Chest : Decrease BS at Right base - Chest tube drainage system is not showing any continuous bubbling, no active drainage CVS : S1, S2 sinus tachycardia Abdomen soft nontender bowel sound present Lower extremity no edema gangrene ulcer No neurological deficit Urinary Catheter Management^: Pelayo: Cath Placed During This Visit: yes, but has since been removed by the nurse Reason for Continuing Indwelling Catheter: Accurate Measurement of Urinary Output in Critically Ill Patients Urinary Catheter Date of Insertion: 06/08/20 Urinary Catheter Time of Insertion: 01:34 Date Urinary Catheter Removed: 06/10/20 Time Urinary Catheter Discontinued: 20:54 Data : 06/11/20 04:40 06/12/20 02:05 A&P Assessment and plan (1) Spontaneous pneumothorax: Chest tube in place Noted air-leak Surgery on board No signs of hemothorax, however still has 10 to 15% pneumothorax Chest x-ray small apical ptx < 5 % D/w CTS - to see patient today NPO at midnight Possible thoravent placement in am Status: Acute (2) Leukocytosis: Daily CBC - Improving off abx Afebrile Likely reactive Monitor off abx Status: Acute (3) Nicotine dependence: Patient counseled extensively to quit smoking, Nicotine Patch PRN Status: Acute Attestations Medical Necessity Statement*: Will continue hospitalization for management of chest tube Time Spent in Patient Care: Greater than 35 minutes Coding Level of Care 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
[2020-06-12 16:33] LABS: INR 1.02 (0.8-1.2)
--- NOTE | 2020-06-12 17:18 | PM.MISC ---
Miscellaneous Note Note: CT scan of chest with contrast has been completed. I have personally reviewed. Not surprisingly, there is bilateral mostly apical bullous disease. I reviewed the CT scan with Ms. Snell at bedside. Options for transitioning to thoracic vent for possible outpatient management versus more definitive therapy with thoracoscopy with bleb resection and pleurodesis were discussed. He wishes to consider the matter further, though I stated to her my preference to consider hopefully, more developed a therapy with bleb resection and pleurodesis. We will be prepared for either option at approximately 3 PM tomorrow. I will speak further with her in the morning to answer any further questions you may have and see if she is made a decision as to how she would like to proceed. If she does decide for thoracoscopy, I would recommend evaluation our anesthesia department to consider thoracic epidural catheter as part of pain management postoperatively. I will speak with her further in the morning to determine the therapy she would wish to pursue.
--- NOTE | 2020-06-12 20:31 | PC.NURSE ---
PT IS ON LAPTOP.
--- NOTE | 2020-06-12 20:32 | PC.NURSE ---
PT IS ON LAPTOP.
[2020-06-13] VITALS (12 sets, daily range): BP systolic 104–127; BP diastolic 74–89; PULSE 70–90; RESP 15–21; TEMP 36.3–36.8; O2SAT 90–98
[2020-06-13 03:05] LABS: Basophils # 0.1 10^3/uL (0.0-0.1); Basophils % 0.7 %; Eosinophils # 0.4 10^3/uL (0.0-0.8); Eosinophils % 2.5 %; Hematocrit 46.3 % (37.0-47.0); Hemoglobin 15.5 g/dL (11.5-15.3); Lymphocytes # 4.8 10^3/uL (0.8-4.8); Lymphocytes % 28.6 %; Mean Corpuscular HGB Conc 33.5 g/dL (30.0-36.0); Mean Corpuscular Hemoglobin 30.2 pg (28.0-34.0); Mean Corpuscular Volume 90.3 fL (81-99); Monocytes # 1.3 10^3/uL (0.2-0.9); Monocytes % 7.9 %; Neutrophils # 9.97 10^3/uL (1.8-7.7); Neutrophils % 59.9 %; Nucleated Red Blood Cells % 0 %; Platelet Count 466 10^3/cmm (130-400); Red Blood Count 5.13 10^6/uL (4.1-5.3); Red Cell Distribution Width 12.7 % (12.1-15.1); White Blood Count 16.6 10^3/uL (4.0-10.0)
[2020-06-13 03:33] LABS: Alanine Aminotransferase 17 U/L (0-33); Alkaline Phosphatase 100 IU/L (35-105); Aspartate Amino Transferase 16 U/L (0-32); Blood Urea Nitrogen 14 mg/dL (6-20); Calcium 9.5 mg/dL (8.5-10.5); Carbon Dioxide 27 mmol/L (22-29); Chloride 99 mmol/L (98-107); Globulin 3.1 g/dL (1.3-4.6); Glomerular Filtration Rate 111.3 mL/min (90-130); Glucose 95 mg/dL (65-115); Osmolality Calculated 286 mOsm/kg (285-295); Sodium 138 mmol/L (136-145); Total Bilirubin 0.2 mg/dL (0.15-1.2); Total Protein 7.1 g/dL (6.6-8.7)
--- NOTE | 2020-06-13 07:24 | PM.PN ---
Subjective Subjective: Interval history: Nurses report that Ms. Snell had a restless night with anxiety. Apparently, she got very little sleep. She is almost noncommunicative this morning and appears distraught. I did speak with her, with nurses present, that clearly we did not have to proceed with thoracoscopy or bleb resection if this presented exceptional anxiety for her, though I would recommend at least transitioning to a thoracic vent to allow for chest tube removal and hopefully outpatient management. I do note she does have a continuous small air leak this morning consistent with yesterday's exam. Upon review of the CT scan I do note that the distal portion of the chest tube is nicely situated at the apex though may be sitting next to her in a ruptured bleb with a resulting persistent air leak noted. Vitals/I&O/Wt Last Vital Signs Temp 97.8 F 06/13/20 04:00 Pulse 77 06/13/20 04:00 Resp 15 06/13/20 04:00 BP 124/87 06/13/20 04:00 Pulse Ox 96 06/13/20 04:00 06/12/20 06/13/20 06/13/20 22:59 06:59 14:59 Output Total 200 / 200 600 / 800 Balance -200 / 340 -600 / -260 Physical Exam Resp: COMMON NORMALS: normal respiratory effort and clear to auscultation bilaterally AUSCULTATION: clear to auscultation bilaterally OTHER: Chest tube dressings, which are substantial, are in place. Psych: COMMON NORMALS: negative for normal affect MOOD & AFFECT: Yes anxious and Yes tearful Urinary Catheter Management^: Pelayo: Cath Placed During This Visit: yes, but has since been removed by the nurse Reason for Continuing Indwelling Catheter: Accurate Measurement of Urinary Output in Critically Ill Patients Urinary Catheter Date of Insertion: 06/08/20 Urinary Catheter Time of Insertion: 01:34 Date Urinary Catheter Removed: 06/10/20 Time Urinary Catheter Discontinued: 20:54 Data : 06/13/20 02:13 06/13/20 02:13 A&P Assessment and plan (1) Spontaneous pneumothorax: Plan: I will reassess with the nurses later throughout the day as to how Ms. Snell is failing towards planned procedure this afternoon. We will maintain her n.p.o., and hopefully, if she does not wish to proceed with thoracoscopy, perhaps we can at least place the thoracic vent. Status: Acute Attestations Medical Necessity Statement*: Spontaneous pneumothorax with persistent air leak Coding Level of Care Code Acute Interior Design Instructor for [facility] Jose Alberto Diagnoses Spontaneous pneumothorax J93.83
[2020-06-13] MEDS: sennosides-docusate Tablet 1 TAB PO (08:03)
[2020-06-13] MEDS: oxyCODONE-APAP 5-325 mg Tablet PO (08:03)
--- NOTE | 2020-06-13 08:45 | P.PN_ITS ---
Subjective Subjective: Interval history: Patient was noted having increasing anxiety overnight. This is primarily because she is not able to however stayed with her throughout the evening. At the time of my evaluation she was quite drowsy. Plan to have surgery with cardiothoracic later today. Medications: Reviewed: Yes Vitals/I&O/Wt Last Vital Signs Temp 98.2 F 06/13/20 14:25 Pulse 90 06/13/20 14:25 Resp 18 06/13/20 14:25 BP 106/78 06/13/20 14:25 Pulse Ox 98 06/13/20 14:25 06/13/20 06/13/20 06/13/20 06:59 14:59 22:59 Output Total 600 / 800 Balance -600 / -260 Physical Exam Narrative: EXAM NARRATIVE: Thin young female General - NAD, Awake alert Chest : Decrease BS at Right base - Chest tube drainage system is not showing any continuous bubbling, no active drainage CVS : S1, S2 sinus tachycardia Abdomen soft nontender bowel sound present Lower extremity no edema gangrene ulcer No neurological deficit Urinary Catheter Management^: Pelayo: Cath Placed During This Visit: yes, but has since been removed by the nurse Reason for Continuing Indwelling Catheter: Accurate Measurement of Urinary Output in Critically Ill Patients Urinary Catheter Date of Insertion: 06/08/20 Urinary Catheter Time of Insertion: 01:34 Date Urinary Catheter Removed: 06/10/20 Time Urinary Catheter Discontinued: 20:54 Data : 06/13/20 02:13 06/13/20 02:13 A&P Assessment and plan (1) Spontaneous pneumothorax: Chest tube in place Noted air-leak Surgery on board No signs of hemothorax, however still has 10 to 15% pneumothorax Chest x-ray small apical ptx < 5 % D/w CTS - NPO for surgery later today Repeat chest x-ray in am Status: Acute (2) Leukocytosis: Daily CBC - increasing today Will check Pro-calcitonins in am May consider empirically starting abx Afebrile Status: Acute (3) Nicotine dependence: Patient counseled extensively to quit smoking, Nicotine Patch PRN Status: Acute (4) Breast mass: Dense bilateral breast tissue with well-circumscribed 2.2 x 1.5 cm ovoid lesion upper outer right breast Incidental noted on CT chest Will arrange for outpatient work up Status: Acute Attestations Medical Necessity Statement*: Continue hospitalization for management of pneumothorax with persistent air leak Time Spent in Patient Care: Greater than 35 minutes Coding Level of Care Code 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
--- NOTE | 2020-06-13 10:15 | PC.NURSE ---
Patient rounding/reassessment of PRN pain management. Patient found resting in bed with eyes closed sleeping. No signs of distress or pain. Respirations even and unlabored.
--- NOTE | 2020-06-13 14:12 | PC.NURSE ---
Teri HALL from Surgery to floor to take patient to preop. Patient transported via [place].
--- NOTE | 2020-06-13 14:42 | ANES.PREANE2 ---
Pre-Anesthetic Assessment Pre-Anesthetic Assessment: Height/Weight: Height 1.6 m Weight 45.359 kg Temp Pulse Resp BP Pulse Ox 98.2 F 90 18 106/78 98 06/13/20 14:25 06/13/20 14:25 06/13/20 14:25 06/13/20 14:25 06/13/20 14:25 Proposed Procedure: Operation Date: 06/13/20 15:00 Proposed Procedures s Pleurodesis(Right) - Kelvin Boyce MD p possible thoracoscopy with wedge resection(Right) - Kelvin Boyce MD Was Beta Linda taken within 24 hours: N/A Last intake: Intake Last Liquid Date 06/12/20 Last Liquid Time 08:00 Last Solid Date 06/12/20 Last Solid Time 21:00 Social: Social History: Tobacco and No alcohol Exam: Pre-Anes Outpt Exam: alert, oriented x 3 and regular rate & rhythm Additional Exam Findings (including area of procedure): Rhonchi Airway: Submandibular: WNL Cervical ROM: WNL MP: 2 Dentition: Chipped Additional comments: Poor dentitioni Pulmonary: Pulmonary: COPD Comments: Spontaneous PTX Anesthetic Plan: ASA status: 3 Anesthesia: General Other: Tatyana ALY Risk of > 500 ml blood loss (7ml/kg in children): No Meds/Allergies Current Medications: Current Medications Generic Name Dose Route Start Last Admin Trade Name Freq PRN Reason Stop Dose Admin Nicotine 1 patch 06/11/20 09:34 06/13/20 08:28 Nicotine 21 Mg P atch TRANSDERMA Not Given DAILY KEZIA Oxycodone/Acetamin ophen 1 - 2 tab 06/09/20 18:10 06/13/20 08:03 Oxycodone-Apap 5 -325 Mg Tablet PO 1 tab Q4H PRN Administration MODERATE TO SEVER E PAIN Senna/Docusate Sod ium 1 tab 06/08/20 09:00 06/13/20 08:03 Sennosides-Docus ate Tablet PO 1 tab DAILY KEZIA Administration PFSH Anesthesia PFSH: Medical History Marijuana abuse Smoker Surgical History Status post chest tube placement right -- 05/2020 Family History Mother Atelectasis Social History Smoking and tobacco status: current every day smoker cigarettes [ Other cigarette details: Smokes 2 to 3 packs a day ] Alcohol intake: never Substance/Drug Use: current Substance/Drug use type: Marijuana Female Reproductive History: Date of last menstrual period: 06/05/20 Data Anesthesia CBC & Chem 7: 06/13/20 02:13 06/13/20 02:13 Other Labs: Laboratory Results - last 48 hr 06/12/20 06/12/20 06/12/20 02:05 15:30 15:30 WBC RBC Hgb Hct MCV MCH MCHC RDW Plt Count MPV Neut % (Auto) Lymph % (Auto) Trinity % (Auto) Eos % (Auto) Baso % (Auto) Neut # (Auto) Lymph # (Auto) Trinity # (Auto) Eos # (Auto) Baso # (Auto) Nucleated RBC % (auto) Nucleated RBCs # PT 13.70 INR 1.02 Sodium 137 Potassium 4.1 Chloride 100 Carbon Dioxide 29 Anion Gap 12.1 BUN 14 Creatinine 0.5 GFR Calculation 137.4 H Glucose 100 Calculated Osmolality 285 Calcium 9.5 Magnesium Total Bilirubin AST ALT Alkaline Phosphatase Total Protein Albumin Globulin Blood Type O Positive Rho(D) Type Positive Antibody Screen Negative Crossmatch See Detail 06/13/20 06/13/20 02:13 02:13 WBC 16.6 H RBC 5.13 Hgb 15.5 H Hct 46.3 MCV 90.3 MCH 30.2 MCHC 33.5 RDW 12.7 Plt Count 466 H MPV 10.0 Neut % (Auto) 59.9 Lymph % (Auto) 28.6 Trinity % (Auto) 7.9 Eos % (Auto) 2.5 Baso % (Auto) 0.7 Neut # (Auto) 9.97 H Lymph # (Auto) 4.8 Trinity # (Auto) 1.3 H Eos # (Auto) 0.4 Baso # (Auto) 0.1 Nucleated RBC % (auto) 0 Nucleated RBCs # 0.0 PT INR Sodium 138 Potassium 4.0 Chloride 99 Carbon Dioxide 27 Anion Gap 16.0 BUN 14 Creatinine 0.6 GFR Calculation 111.3 Glucose 95 Calculated Osmolality 286 Calcium 9.5 Magnesium 2.0 Total Bilirubin 0.2 AST 16 ALT 17 Alkaline Phosphatase 100 Total Protein 7.1 Albumin 4.0 Globulin 3.1 Blood Type Rho(D) Type Antibody Screen Crossmatch Cardiac Studies: No Data to Display
[2020-06-13] MEDS: sodium chloride 0.9% 1,000 ML 30 ML IV (15:10)
[2020-06-13] MEDS: vancomycin 750 MG in sodium chloride 0.9% 250 ML 250 MG IV (15:43)
[2020-06-13 16:01] LABS: Calcium 9.5 mg/dL (8.5-10.5)
--- NOTE | 2020-06-13 16:48 | P.ANES_ITS ---
Anesthesia Procedures Procedure/Date: 06/13/20 Epidural: Time Out Performed: Yes Consents Signed: Procedure Consent and NPO Consent Consent: requested by attending/covering physician, from patient, risks and benefits reviewed and patient agrees to proceed Thoracic Level: T9- T10 Epidural position: sitting Epidural procedure: sterile prep of area, 1% lidocaine to numb the area, 18 g needle, negative for paresthesia passed, neg for paresthesia, test dose given, 1.5% xylocaine 1:200k epi, placed PCEA, no systemic response, sterile dressing applied and 0.2% Ropiavacaine @ mls/hr (6)
[2020-06-13] MEDS: lidocaine 1% INJ 50 mL INJECTION (17:06)
--- NOTE | 2020-06-13 17:51 | P.OP_ITS ---
Operative Report Date of procedure: June 13, 2020 Pre-op Diagnosis: Spontaneous pneumothorax with persistent air leak status post thoracostomy Post-op diagnosis: same Procedure Done: Right thoracoscopy with apical bleb resection/mechanical and chemical pleurodesis Specimens removed/disposition: Right apical blebs Surgeon: Kelvin Boyce Anesthesia: General Estimated blood loss (mL): 50 Complications: None Findings: Intact and ruptured right apical blebs Condition: stable Disposition: ICU Brief History: 40-year-old female who was admitted upon presenting to the emergency department 5 days ago with a right pneumothorax. She is initially treated with thoracostomy tube and has had a persistent air leak. I was consulted yesterday by Dr. Osborne. I have recommended formal bleb resection and pleurodesis. This was carefully discussed with patient and her . Details and risk of procedure reviewed. They are in agreement. Proper consents have been reviewed and signed. Procedure: Ms. Snell was taken to the operating room and underwent general endotracheal anesthesia after appropriate invasive monitoring lines were placed. Double-lumen endotracheal tube was placed and confirmed by bronchoscopy. She was then placed in the left lateral decubitus position over an axillary roll and protective padding. Previously placed right thoracostomy tube was removed. She was secured and then sterilely prepped and draped. 3 thoracoscopic ports were placed. One in the posterior axillary line in the sixth intercostal space. Another anteriorly in the eighth intercostal space. Another more posteriorly in the fifth intercostal space. Camera was inserted and inspection of the right pleural cavity was performed. Initial thorascopic inspection revealed intact and ruptured blebs in the apex along with adhesions in this region. There are also mild adhesions from the chest wall where the previous chest tube have been placed. These adhesions were taken down. Next after careful inspection, the apex of the right upper lobe was isolated with endoscopic graspers and endoscopic stapler was utilized to resect these apical blebs. Specimen was recovered and sent to pathology. Small areas of adhesion with bleeding were controlled with cautery. We next performed mechanical pleurodesis utilizing a Bovie scratch pad overall exposed parietal and visceral surfaces. Following this, chemical pleurodesis was performed utilizing a slurry of talc, doxycycline, and D50. Having completed this, we then placed a 28 Vincentian drain situated up to the apex. It was secured and connected to Pleur-evac suction. Ports were removed. Sponge and needle count was correct. Thoracoscopic ports were closed with 3-0 and 4-0 Vicryl suture. Sterile dressings were applied. Ms. Snell was returned to supine position where she was awakened and extubated. She was then taken to ICU in stable condition. Chest x-ray is pending. We did confer with her aunt throughout and at the completion of the procedure.
--- NOTE | 2020-06-13 18:10 | P.ANESPOST_ITS ---
Inpatient post-anesthesia follow up: Airway intact: Yes Vital signs: Temperature 98.2 F Pulse Rate [Left R adial] 116 Pulse Rate 90 Respiratory Rate 18 Blood Pressure [Le ft Arm] 132/89 Blood Pressure 106/78 Pulse Oximetry 98 Oxygen Delivery Me thod Room Air Oxygen Flow Rate 1 Fraction of Inspir ed Oxygen Hydration adequate: Yes Nausea and vomiting: No Pain level: 2 Nima tional Comments: Sedated, to ICU extubated, good pain control with epidural.
--- NOTE | 2020-06-13 18:59 | XR_ITS ---
WS: [id number] Exam: XR chest 1V portable [id number] Date/Time of Exam: 06/13/2020 7:32 PM Reason For Exam: Upon arrival to ICU/apical bleb resection Comparison 06/11/2020. Approximately 5% pneumothorax noted along the apex of the right lung. This has increased slightly. Ri ght chest tube has been repositioned and now ends in the superior medial right pleural cavity Mild pl aque atelectasis noted throughout the right lung. The left lung is clear and fully inflated. Normal c ardiomediastinal structures and bony elements. Monitoring leads superimpose the chest. XR/XR chest 1V portable [id number] IMPRESSION: 1. Right upper lobe pneumothorax has increased slightly. It is estimated at 5%. 2. Right thoracostomy tube is been repositioned.
--- NOTE | 2020-06-13 19:48 | PC.NURSE ---
Call put out to DR Boyce to let him know the output in chest tube.
[2020-06-13] MEDS: lactated ringers 1,000 ML 100 ML IV (19:52)
[2020-06-13] MEDS: lanolin oint 7 gm 1 APPLIC TOPICAL (21:33)
[2020-06-14] VITALS (8 sets, daily range): BP systolic 105–128; BP diastolic 70–82; PULSE 76–99; RESP 16–20; TEMP 36.6–37.2; O2SAT 95–100
[2020-06-14] MEDS: vancomycin 750 MG in sodium chloride 0.9% 250 ML 250 MG IV ×2 (03:03→15:04)
[2020-06-14] MEDS: lactated ringers 1,000 ML 100 ML IV ×2 (04:55→15:04)
--- NOTE | 2020-06-14 05:51 | PM.PN ---
Subjective Subjective: Interval history: Postop day #1 status post right thoracoscopy with bleb resection and pleurodesis. Pain has been under good control overnight. Mr. Segal 100 cc chest tube output since surgery. There is still a modest air leak noted and there is a small apical pneumothorax with a long not quite reaching the top of the chest wall. Generalized overall modest haziness consistent with pleurodesis. I do note Pleur-evac was not to adequate suction upon my rounds this morning. This was corrected. Vitals/I&O/Wt Last Vital Signs Temp 97.4 F L 06/13/20 18:30 Pulse 78 06/13/20 19:30 Resp 21 H 06/13/20 19:30 BP 104/74 06/13/20 19:30 Pulse Ox 92 06/13/20 19:30 06/13/20 06/13/20 06/14/20 14:59 22:59 06:59 Intake Total 360 / 360 905 / 1265 Output Total 120 / 120 550 / 670 Balance 240 / 240 355 / 595 Physical Exam Chest: COMMONS NORMALS: normal inspection of the chest (Dressings dry. Support tubes in place.) Cardio: COMMON NORMALS: regular rate, regular rhythm and S1 normal heart sound present RATE: regular rate RHYTHM: regular rhythm HEART SOUNDS: S1 normal heart sound present Extremity: COMMON NORMALS: no clubbing, cyanosis or edema Urinary Catheter Management^: Pelayo: Cath Placed During This Visit: yes, but has since been removed by the nurse Reason for Continuing Indwelling Catheter: Accurate Measurement of Urinary Output in Critically Ill Patients Urinary Catheter Date of Insertion: 06/08/20 Urinary Catheter Time of Insertion: 01:34 Date Urinary Catheter Removed: 06/10/20 Time Urinary Catheter Discontinued: 20:54 Data : 06/13/20 02:13 06/13/20 02:13 A&P Assessment and plan (1) Spontaneous pneumothorax: Postop day #1 status post right thoracoscopy with bleb resection and pleurodesis. Modest postop air leak. Low chest tube output. : DC Pelayo. DC A-line. Will transfer to fabian. Continue chest tube to suction. Aggressive pulmonary toilet. Out of bed in chair frequently. Chest x-ray in a.m. 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
--- NOTE | 2020-06-14 06:00 | XR_ITS ---
WS: [id number] Exam: XR chest 1V portable [id number] Date/Time of Exam: 06/14/2020 6:00 AM Reason For Exam: Postop day #1 status post bleb resection Comparison with the last exam 06/13/2020. Right upper lobe pneumothorax is again noted and has increased slightly. Diffusely increased density noted throughout the right lung which is predominantly a atelectasis however superimposed pneumonia i s not excluded. The left lung is clear and fully expanded. Normal cardiomediastinal structures and maulik ny elements. Right-sided chest tube is unchanged in position. XR/XR chest 1V portable [id number] IMPRESSION: 1. Slight increase in right upper lobe pneumothorax. Estimated between 5 and 10 %. 2. Diffusely increased parenchymal density throughout the right lung which is m ost likely predominantly atelectasis however superimposed pneumonia is not excl uded.
[2020-06-14] MEDS: ALPRAZolam 0.25 mg Tablet 0.125 MG PO ×2 (07:54→16:23)
[2020-06-14] MEDS: fentaNYL 50 mcg/mL INJ 2mL 100 MCG IVP ×2 (08:44→08:50)
--- NOTE | 2020-06-14 08:46 | PC.NURSE ---
Fentanyl 100 mcg IVP ordered and given by Dr. Peterson.
--- NOTE | 2020-06-14 09:22 | PC.NURSE ---
Patient transferred to [facility] [id number], report given to ISABEL Stokes. Belongings with patient.
--- NOTE | 2020-06-14 09:29 | ANE.PACU2 ---
Inpatient post-anesthesia follow up: Airway intact: Yes Vital signs: Temperature 97.4 F Pulse Rate [Left R adial] 116 Pulse Rate 78 Respiratory Rate 20 Blood Pressure [Le ft Arm] 132/89 Blood Pressure 104/74 Pulse Oximetry 100 Oxygen Delivery Me thod Room Air Oxygen Flow Rate 1 Fraction of Inspir ed Oxygen Hydration adequate: Yes Nausea and vomiting: No Pain level: 2 Mental status: Baseline Additional Comments: POD #1 Patient for all intents looked comfortable, V/S within normal limits but did complain of right sided pain and difficulty taking deep breath. Epidural C/D/I, bolused 100mcg fentanyl in epidural just prior to patient being transferred to floor. In addition, patient having concomitant anxiety issues.
[2020-06-14] MEDS: sennosides-docusate Tablet 1 TAB PO (10:29)
[2020-06-14] MEDS: pantoprazole DR 40 mg Tablet PO (10:29)
[2020-06-14 10:52] LABS: Basophils # 0.1 10^3/uL (0.0-0.1); Basophils % 0.4 %; Eosinophils # 0.2 10^3/uL (0.0-0.8); Eosinophils % 1.3 %; Hematocrit 39.3 % (37.0-47.0); Hemoglobin 13.1 g/dL (11.5-15.3); Lymphocytes % 22.5 %; Mean Corpuscular HGB Conc 33.3 g/dL (30.0-36.0); Mean Corpuscular Hemoglobin 30.5 pg (28.0-34.0); Mean Corpuscular Volume 91.6 fL (81-99); Mean Platelet Volume 9.3 fL (7.4-10.4); Monocytes # 1.6 10^3/uL (0.2-0.9); Monocytes % 8.9 %; Neutrophils # 11.96 10^3/uL (1.8-7.7); Neutrophils % 66.5 %; Nucleated Red Blood Cells % 0 %; Platelet Count 384 10^3/cmm (130-400); Red Blood Count 4.29 10^6/uL (4.1-5.3); Red Cell Distribution Width 12.9 % (12.1-15.1)
--- NOTE | 2020-06-14 12:21 | P.PN_ITS ---
Subjective Subjective: Interval history: Patient was taken to the OR yesterday. No significant clinical events overnight. No fever chills. No nausea vomiting. Patient was less anxious today. Medications: Reviewed: Yes Vitals/I&O/Wt Last Vital Signs Temp 97.9 F 06/14/20 11:41 Pulse 76 06/14/20 11:41 Resp 18 06/14/20 11:41 BP 110/75 06/14/20 11:41 Pulse Ox 95 06/14/20 11:41 06/13/20 06/14/20 06/14/20 22:59 06:59 14:59 Intake Total 360 / 360 1155 / 1515 Output Total 120 / 120 550 / 670 Balance 240 / 240 605 / 845 Physical Exam Narrative: EXAM NARRATIVE: Thin young female General - NAD, Awake alert Chest : Decrease BS at Right base - Chest tube drainage system is not showing any continuous bubbling, no active drainage CVS : S1, S2 sinus tachycardia Abdomen soft nontender bowel sound present Lower extremity no edema gangrene ulcer No neurological deficit Urinary Catheter Management^: Pelayo: Cath Placed During This Visit: yes, but has since been removed by the nurse Reason for Continuing Indwelling Catheter: Accurate Measurement of Urinary Output in Critically Ill Patients Urinary Catheter Date of Insertion: 06/08/20 Urinary Catheter Time of Insertion: 01:34 Date Urinary Catheter Removed: 06/10/20 Time Urinary Catheter Discontinued: 20:54 Data : 06/14/20 10:46 06/13/20 02:13 A&P Assessment and plan (1) Spontaneous pneumothorax: S/p Right thoracoscopy with apical bleb resection/mechanical and chemical pleurodesis POD 1 Noted to have air leak CTS on board and managing Chest -xray in am Pain control Status: Acute (2) Leukocytosis: Daily CBC - increasing today Pro-calcitonins - Follow up on procalcitonin Will start on unasyn empirically Patient has poor dentition - noted recurrent dental infection Afebrile repeat CBC in am Status: Acute (3) Nicotine dependence: Patient counseled extensively to quit smoking, Nicotine Patch PRN Status: Acute (4) Breast mass: Dense bilateral breast tissue with well-circumscribed 2.2 x 1.5 cm ovoid lesion upper outer right breast Incidental noted on CT chest Will arrange for outpatient work up with oncology Patient noted 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 Patient however has not had any history of Biopsy. no recent change in size as per patient Status: Acute Attestations Medical Necessity Statement*: Continue hospitalization for management of pneumothorax, postop and chest tube Time Spent in Patient Care: Greater than 35 minutes (>than 50% of time spent in counselling and/or direct pt care on unit) . 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
[2020-06-14] MEDS: morphine 4 mg/mL SDV 1 mL 2 MG IVP (15:04)
[2020-06-15] MEDS: lactated ringers 1,000 ML 100 ML IV ×2 (00:38→08:41)
[2020-06-15] MEDS: vancomycin 750 MG in sodium chloride 0.9% 250 ML 250 MG IV ×2 (03:23→14:57)
[2020-06-15 03:54] VITALS: BP 120/78; PULSE 84; RESP 19; TEMP 36.8; O2SAT 98
[2020-06-15 05:15] VITALS: BP 112/73; PULSE 75; RESP 18; TEMP 36.7; O2SAT 98
[2020-06-15] MEDS: ALPRAZolam 0.25 mg Tablet 0.125 MG PO (05:15)
[2020-06-15] MEDS: guaiFENesin 100 mg/5 mL UDC 10 mL 200 MG PO ×2 (05:16→19:55)
--- NOTE | 2020-06-15 06:00 | XR_ITS ---
WS: [id number] Exam: XR chest 1V portable [id number] Date/Time of Exam: 06/15/2020 6:00 AM Reason For Exam: Postop day #2 status post thoracoscopy with bleb resection Comparison 06/14/2020 at 1520 hours. Small right apical pneumothorax noted estimated at less than 5%. The remaining right lung is fully ex panded and clear. The left lung is clear. Normal cardiomediastinal structures and bony elements. A ri ght-sided thoracostomy tube ends in the upper medial right pleural cavity unchanged in position. Erna toring leads superimpose the chest. XR/XR chest 1V portable [id number] IMPRESSION: 1. Small right apical pneumothorax estimated at less than 5%. Right chest tube unchanged in position.
--- NOTE | 2020-06-15 07:50 | P.PN_ITS ---
Subjective Subjective: Interval history: Postop day #2 status post right thoracoscopy with bleb resection and pleurodesis. Postop discomfort under good control. Expected increased chest tube output related to the pleurodesis. Unfortunately, still modest air leak with an apical cap noted on the chest x- ray. Appears to be in good spirits this morning. Vitals/I&O/Wt Last Vital Signs Temp 98.1 F 06/15/20 05:15 Pulse 75 06/15/20 05:15 Resp 18 06/15/20 05:15 BP 112/73 06/15/20 05:15 Pulse Ox 98 06/15/20 05:15 06/14/20 06/15/20 06/15/20 22:59 06:59 14:59 Intake Total 250 / 1470 1776.667 / 3246.667 Output Total 1450 / 1450 1230 / 2680 Balance -1200 / 20 546.667 / 566.667 Physical Exam Chest: COMMONS NORMALS: normal inspection of the chest and normal palpation of entire chest wall Resp: COMMON NORMALS: clear to auscultation bilaterally AUSCULTATION: clear to auscultation bilaterally Urinary Catheter Management^: Pelayo: Cath Placed During This Visit: yes, but has since been removed by the nurse Reason for Continuing Indwelling Catheter: Accurate Measurement of Urinary Ou tput in Critically Ill Patients Urinary Catheter Date of Insertion: 06/08/20 Urinary Catheter Time of Insertion: 01:34 Date Urinary Catheter Removed: 06/10/20 Time Urinary Catheter Discontinued: 20:54 Data : 06/14/20 10:46 06/13/20 02:13 A&P Assessment and plan (1) Spontaneous pneumothorax: Plan: Continue chest tube to suction for now. If airleak continues unabated, we can transition to a thoracic vent to allow for outpatient management. Will obtain alpha-1 antitrypsin level Saline lock IV and DC cardiac monitoring to allow for more easier transfers to chair. Greatly appreciate the oversight of our hospitalist colleagues. Status: Acute Attestations Medical Necessity Statement*: Status post right thoracoscopy with bleb resection for persistent pneumothorax Time Spent in Patient Care: 16 - 35 minutes Coding Level of Care Code Acute Consultants Intern for [facility] Jose Alberto Diagnoses Spontaneous pneumothorax J93.83
[2020-06-15] MEDS: sennosides-docusate Tablet 1 TAB PO (08:41)
[2020-06-15] MEDS: pantoprazole DR 40 mg Tablet PO (08:41)
--- NOTE | 2020-06-15 08:56 | ANE.PACU2 ---
Inpatient post-anesthesia follow up: Airway intact: Yes Vital signs: Temperature 98.1 F Pulse Rate [Left R adial] 116 Pulse Rate 75 Respiratory Rate 18 Blood Pressure [Le ft Arm] 132/89 Blood Pressure 112/73 Pulse Oximetry 98 Oxygen Delivery Me thod Room Air Oxygen Flow Rate 1 Fraction of Inspir ed Oxygen Hydration adequate: Yes Nausea and vomiting: No Pain level: 2 Mental status: Baseline Additional Comments: POD #2, good pain control. No change, CT with leak. C/D/I
[2020-06-15 09:21] VITALS: BP 127/78; PULSE 80; RESP 22; TEMP 36.7
[2020-06-15] MEDS: morphine 4 mg/mL SDV 1 mL 2 MG IVP (10:49)
[2020-06-15 11:56] VITALS: BP 134/80; PULSE 99; RESP 16; TEMP 37.1; O2SAT 91
--- NOTE | 2020-06-15 12:50 | PC.CHAP ---
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 [] Patient/Family/Request visit [] Outpatient visit [xx] Follow-up visit [] Physician referral [] Code/Alert [] Routine visit [] Staff referral [] Actively dying [] Patient sleeping [] Family support [] [] Out of room [] Palliative care [] [xx] Receiving care in room [] Pre-surgical visit [] Trauma [xx] Long length of stay [] ICU visit [] Other: Relational/Emotional Strength [] Patient feels connected with others/family/visitors/staff [] Distress [] Loneliness/isolation [] Abandonment Spirituality of Patient [] Person of Rosalina [] Attends Yazdanism of their Rosalina [] Believes in Prayer [] Reads Bible or Shinto materials [] There are Spiritual issues to be addressed Campus Safety Officer Interventions [] Prayer [] Active listening [] Non-anxious presence [] Spiritual/emotional support [] Crisis/trauma care [] Spiritual counseling [] Bereavement support [] Provided bereavement packet [] Provided Bible/devotional materials [] Provided toy/stuffed animal, coloring book to patient or family member [] Provided Communion [] Anointing/Rufe [] Salvation [] Completed spiritual assessment [] Other: Impact on Illness or Injury [] Angry [] Fearful [] Anxious [] Often cries [] Exhaustion [] Unable to work [] Unable to attend hindu [] Unable to walk/stand [] Unable to read [] Unable to drive [] Unable to eat/drink [] Unable to sleep [] Unable to be with family [] Patient intubated [] Other: Summary Follow up visit not completed as medical staff were busy with patient. Try follow up again later date on this long-term patient. Time spent with patient 3 minutes
[2020-06-15 16:00] VITALS: BP 112/70; PULSE 99; RESP 18; TEMP 36.9; O2SAT 99
--- NOTE | 2020-06-15 18:55 | P.PN_ITS ---
Subjective Subjective: Interval history: Patient stable overnight. Was stating that she is however having onset of productive cough. Chest pain was stable. No fevers. No nausea vomiting. Chest tube in place with continued air leak. Medications: Reviewed: Yes Vitals/I&O/Wt Last Vital Signs Temp 98.4 F 06/15/20 16:00 Pulse 99 06/15/20 16:00 Resp 18 06/15/20 16:00 BP 112/70 06/15/20 16:00 Pulse Ox 99 06/15/20 16:00 06/15/20 06/15/20 06/15/20 06:59 14:59 22:59 Intake Total 1776.667 / 3246.667 1285 / 1285 590 / 1875 Output Total 1230 / 2680 900 / 900 340 / 1240 Balance 546.667 / 566.667 385 / 385 250 / 635 Physical Exam Narrative: EXAM NARRATIVE: Thin young female General - NAD, Awake alert Chest : Decrease BS at Right base - Chest tube drainage system is not showing any continuous bubbling, no active drainage CVS : S1, S2 sinus tachycardia Abdomen soft nontender bowel sound present Lower extremity no edema gangrene ulcer No neurological deficit Urinary Catheter Management^: Pelayo: Cath Placed During This Visit: yes, but has since been removed by the nurse Reason for Continuing Indwelling Catheter: Accurate Measurement of Urinary Output in Critically Ill Patients Urinary Catheter Date of Insertion: 06/08/20 Urinary Catheter Time of Insertion: 01:34 Date Urinary Catheter Removed: 06/10/20 Time Urinary Catheter Discontinued: 20:54 Data : 06/14/20 10:46 06/13/20 02:13 A&P Assessment and plan (1) Spontaneous pneumothorax: S/p Right thoracoscopy with apical bleb resection/mechanical and chemical pleurodesis POD 2 Noted to have air leak CTS on board and managing Chest -xray in am Pain control Status: Acute (2) Leukocytosis: Levaquin 750 mg IV daily Sputum culture Procalcitonin a.m. 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 Patient however has not had any history of Biopsy. no recent change in size as per patient No additional workup inpatient Status: Acute Attestations Medical Necessity Statement*: continue hospitalization for management of chest tube and possible development of pneumonia Time Spent in Patient Care: Greater than 35 minutes (>than 50% of time spent in counselling and/or direct pt care on unit) . 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
[2020-06-15 19:04] VITALS: BP 119/74; PULSE 69; RESP 18; TEMP 36.6; O2SAT 97
[2020-06-15] MEDS: levofloxacin-dextrose 5 % 750 MG/150 ML PREMIX 100 MG IV (19:55)
--- NOTE | 2020-06-15 20:08 | PC.NURSE ---
Patient was complaining of coughing and her SpO2 was between 91-92%, restarted her on 2L NC.
[2020-06-16] VITALS: BP 101/68; PULSE 73; RESP 19; TEMP 36.8; O2SAT 94
[2020-06-16 03:54] VITALS: BP 124/84; PULSE 75; RESP 18; TEMP 36.6; O2SAT 96
--- NOTE | 2020-06-16 04:13 | PC.NURSE ---
Earlier, patient was complaining of SOB after using the commode. This titrated her 2L NC to 2.5L NC. This nurse also used relaxation techniques to bring the patient's HR which was 10X-11X below 100. Patient stated that she started to feel better.
--- NOTE | 2020-06-16 05:11 | NUR.SHIFT ---
Patient has complained of some back pain and some SOB, which was corrected by relaxation techniques. Patient's NC went from 2L to 2.5L back down to 1.5L, only raise her SpO2 slightly. Patient hasn't slept much throughout the night. Patient's chest tube drainage has been at 30ml during the shift. Patient has been afibrile and MAP has been above 75. When the patient would transfer to the [facility], she would sometimes experience some SOB and some amount of pain. When asked about her pain, patient would state that her epidural is controlling her pain. Patient has stated that she does feel better than she did earlier.
[2020-06-16 05:36] LABS: Basophils # 0.1 10^3/uL (0.0-0.1); Basophils % 0.5 %; Eosinophils # 0.3 10^3/uL (0.0-0.8); Eosinophils % 2.5 %; Hematocrit 40.8 % (37.0-47.0); Hemoglobin 13.4 g/dL (11.5-15.3); Lymphocytes % 22.9 %; Mean Corpuscular HGB Conc 32.8 g/dL (30.0-36.0); Mean Corpuscular Hemoglobin 30.7 pg (28.0-34.0); Mean Corpuscular Volume 93.4 fL (81-99); Mean Platelet Volume 9.4 fL (7.4-10.4); Monocytes # 1.4 10^3/uL (0.2-0.9); Monocytes % 10.5 %; Neutrophils # 8.19 10^3/uL (1.8-7.7); Neutrophils % 63.1 %; Nucleated Red Blood Cells % 0 %; Platelet Count 396 10^3/cmm (130-400); Red Blood Count 4.37 10^6/uL (4.1-5.3); Red Cell Distribution Width 12.8 % (12.1-15.1)
[2020-06-16 06:09] LABS: Procalcitonin 0.08 ng/mL (0-0.5)
[2020-06-16 06:21] LABS: Alanine Aminotransferase 16 U/L (0-33); Albumin Level 3.5 g/dL (3.5-5.2); Alkaline Phosphatase 83 IU/L (35-105); Aspartate Amino Transferase 16 U/L (0-32); Blood Urea Nitrogen 8 mg/dL (6-20); Calcium 8.9 mg/dL (8.5-10.5); Carbon Dioxide 24 mmol/L (22-29); Chloride 102 mmol/L (98-107); Globulin 2.9 g/dL (1.3-4.6); Glomerular Filtration Rate 137.4 mL/min (90-130); Glucose 119 mg/dL (65-115); Osmolality Calculated 283 mOsm/kg (285-295); Sodium 137 mmol/L (136-145); Total Bilirubin 0.4 mg/dL (0.15-1.2); Total Protein 6.4 g/dL (6.6-8.7)
[2020-06-16] MEDS: ALPRAZolam 0.25 mg Tablet 0.125 MG PO ×2 (06:52→14:10)
--- NOTE | 2020-06-16 07:00 | XRR_ITS ---
PROCEDURE INFORMATION: Exam: XR Chest, 1 View Exam date and time: 06/16/2020 5:51 AM Age: 40 years old Clinical indication: Device placement; Prior surgery; Patient HX: F/u pneumothorax with chest tube placement and bleb resection. ; Additional info: Respiratory failure TECHNIQUE: Imaging protocol: XR of the chest Views: 1 view. COMPARISON: CR XR chest 1V portable [id number] 06/15/2020 5:38 AM FINDINGS: Tubes, catheters and devices: A right chest tube remains in satisfactory position. Lungs: Scattered subsegmental atelectasis is present in the right lung. The left lung is clear. Pleural spaces: There is a stable small right apical pneumothorax. The right costophrenic angle is blunted which may be due to a small right pleural effusion. Heart/Mediastinum: Unremarkable. No cardiomegaly. Bones/joints: Unremarkable. XR/XR chest 1V portable [id number] IMPRESSION: 1. Satisfactory right chest tube position. 2. Stable small right apical pneumothorax. 3. Scattered subsegmental atelectasis in the right lung with small right pleural effusion.
[2020-06-16 07:39] VITALS: BP 124/85; PULSE 88; RESP 18; TEMP 36.6; O2SAT 97
--- NOTE | 2020-06-16 07:46 | PC.NURSE ---
Addendum entered by Mónica Erazo RN 06/16/20 08:04: NOTED AIR LEAK Original Note: AM NOTE AT BEDSIDE FOR HAND OFF WITH DISTRICT ADVISER ISABEL VINCENT - PT SITTING ON SIDE OF BED REQUESTING PRN ANXIETY MEDICATIONS - NOTED PT TO HAVE 0.5 L N/C - PULSE OX PLACED ON PER ISABEL VINCENT SATS NOTED TO BE 88% - INCREASED O2 TO 3L NC - SATS UP TO 92% - NOTED PT TO HAVE RHONCHI THROUGHOUT - EDUCATION GIVEN ON COUGH AND DEEP BREATH WELL IS Q1 HR X 10 - WATER ADDED TO CHEST TUBE ATRIUM - NOTED CHEST TUBE TO BE ON LOW WALL SUCTION - INCREASED TO 120 OF REGULAR/CONTINUOUS WALL SUCTION - WILL CONTINUE TO MONITOR
[2020-06-16] MEDS: sennosides-docusate Tablet 1 TAB PO (08:41)
[2020-06-16] MEDS: pantoprazole DR 40 mg Tablet PO (08:42)
--- NOTE | 2020-06-16 08:44 | PC.NURSE ---
AM NOTE DR KAY ANESTHESIA AT PTS SIDE TO ASSESS EPIDURAL - NO ISSUES NOTED - PT 02 SATS AT 97 - TURNED 0XYGEN DOWN TO 2L WILL MONITOR
--- NOTE | 2020-06-16 09:00 | ANE.PACU2 ---
Inpatient post-anesthesia follow up: Airway intact: Yes Vital signs: Temperature 97.9 F Pulse Rate [Left R adial] 116 Pulse Rate 88 Respiratory Rate 18 Blood Pressure [Le ft Arm] 132/89 Blood Pressure 124/85 Pulse Oximetry 97 Oxygen Delivery Me thod Room Air,Nasal Can nula Oxygen Flow Rate 2 Fraction of Inspir ed Oxygen Hydration adequate: Yes Nausea and vomiting: No Pain level: 2 Mental status: Baseline Additional Comments: POD#[address] with significant leak, some coughing and SOB, good pain control. On OR schedule for Thursday, will plan to leave epidural in until Thu/Thu when more definitive treatment plan available.
--- NOTE | 2020-06-16 10:43 | P.PN_ITS ---
Subjective Subjective: Interval history: seen with cts Medications: Reviewed: Yes Vitals/I&O/Wt Last Vital Signs Temp 97.7 F 06/17/20 07:34 Pulse 85 06/17/20 07:34 Resp 18 06/17/20 08:09 BP 106/76 06/17/20 07:34 Pulse Ox 98 06/17/20 07:34 06/16/20 06/17/20 06/17/20 22:59 06:59 14:59 Intake Total 580 / 940 100 / 1040 Output Total 0 / 240 20 / 260 Balance 580 / 700 80 / 780 Physical Exam Narrative: EXAM NARRATIVE: Thin young female General - NAD, Awake alert Chest : Decrease BS at Right base - Chest tube drainage system is not showing any continuous bubbling, no active drainage CVS : S1, S2 sinus tachycardia Abdomen soft nontender bowel sound present Lower extremity no edema gangrene ulcer No neurological deficit Urinary Catheter Management^: Pelayo: Cath Placed During This Visit: yes, but has since been removed by the nurse Reason for Continuing Indwelling Catheter: Accurate Measurement of Urinary Output in Critically Ill Patients Urinary Catheter Date of Insertion: 06/08/20 Urinary Catheter Time of Insertion: 01:34 Date Urinary Catheter Removed: 06/10/20 Time Urinary Catheter Discontinued: 20:54 Data : 06/16/20 05:30 06/16/20 05:30 A&P Assessment and plan (1) Spontaneous pneumothorax: S/p Right thoracoscopy with apical bleb resection/mechanical and chemical pleurodesis POD 2 Noted to have air leak CTS on board and managing Chest -xray in am Pain control Plan for thoravent in am Status: Acute (2) Leukocytosis: Levaquin 750 mg IV daily Sputum culture Patient has poor dentition - noted recurrent dental infection Afebrile repeat CBC in am Status: Acute (3) Nicotine dependence: Patient counseled extensively to quit smoking, Nicotine Patch PRN Status: Acute (4) Breast mass: Dense bilateral breast tissue with well-circumscribed 2.2 x 1.5 cm ovoid lesion upper outer right breast Incidental noted on CT chest Will arrange for outpatient work up with oncology Patient noted 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 Patient however has not had any history of Biopsy. 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
--- NOTE | 2020-06-16 10:57 | PM.PN ---
Subjective Subjective: Interval history: Postop day #3 status post right thoracoscopy with bleb resection of apical bullae followed by mechanical and chemical pleurodesis. Chest tube output 70 cc past 24-hours. X-ray is relatively clear with some subsegmental atelectasis but still a small apical pneumothorax. Mechanical staple line appears to be intact. Chest tube remains in good position up to the apex. Airleak it appears about the same. I spoke with Dayron Channing and her with Dr. Osborne also present. Levaquin has been initiated empirically due to elevated white count. This is improving. Alpha 1 antitrypsin is pending. Vitals/I&O/Wt Last Vital Signs Temp 97.9 F 06/16/20 07:39 Pulse 88 06/16/20 07:39 Resp 18 06/16/20 07:39 BP 124/85 06/16/20 07:39 Pulse Ox 97 06/16/20 07:39 06/15/20 06/16/20 06/16/20 22:59 06:59 14:59 Intake Total 590 / 1875 / 1975 120 / 120 Output Total 340 / 1240 530 / 1770 240 / 240 Balance 250 / 635 -430 / 205 -120 / -120 Physical Exam Chest: COMMONS NORMALS: normal inspection of the chest Extremity: COMMON NORMALS: no clubbing, cyanosis or edema Urinary Catheter Management^: Pelayo: Cath Placed During This Visit: yes, but has since been removed by the nurse Reason for Continuing Indwelling Catheter: Accurate Measurement of Urinary Output in Critically Ill Patients Urinary Catheter Date of Insertion: 06/08/20 Urinary Catheter Time of Insertion: 01:34 Date Urinary Catheter Removed: 06/10/20 Time Urinary Catheter Discontinued: 20:54 Data : 06/16/20 05:30 06/16/20 05:30 A&P Assessment and plan (1) Spontaneous pneumothorax: Postop day #3. Still with air leak. Plan: We will place chest tube to waterseal in the event that perhaps active suction is further propagating this airleak. Chest x-ray in a.m. I discussed with patient and her that if the air leak is maintained through tomorrow I would recommend transitioning to a thoracic vent on Thursday morning with plans for subsequent discharge and outpatient management. She and her are agreeable to this. Status: Acute Attestations Medical Necessity Statement*: Postop day #3 status post right thoracoscopy with bleb resection and pleurodesis Time Spent in Patient Care: 16 - 35 minutes Coding Level of Care Code Acute Living Specialist for [facility] Jose Alberto Diagnoses Spontaneous pneumothorax J93.83
--- NOTE | 2020-06-16 11:46 | PC.NURSE ---
DR CASILLAS/DR ROSS BOTH DOCS IN ROOM TO SPEAK WITH PATIENT AND - PT AND BOTH ANXIOUS AND NOTED TO BE ASKING MULTIPLE QUESTIONS AT PRESENT TIME - BOTH DOCS ANSWERED QUESTIONS - PT AND RECEPTIVE TO ANSWERS AT PRESENT TIME - PER DR ROSS - CHEST TUBE REMOVED FROM SUCTION - WATER SEAL AT CURRENT TIME - AIR LEAK REMAINS DETECTABLE -
[2020-06-16 12:00] VITALS: BP 133/87; PULSE 85; RESP 18; TEMP 36.8; O2SAT 95
[2020-06-16] MEDS: guaiFENesin 100 mg/5 mL UDC 10 mL 200 MG PO (12:21)
[2020-06-16 15:44] VITALS: BP 117/82; PULSE 86; RESP 18; TEMP 37.3; O2SAT 98
--- NOTE | 2020-06-16 16:12 | PC.NURSE ---
LATE NOTE 1650 - RUPIVICAINE BAG CHANGE DUE TO CADD PUMP SAYING ZERO VOLUME - RUPIVICAINE STARTED PER THIS NURSE WITH SMILEY RN AT SIDE - THIS NURSE DOCUMENTED ZERO WASTE IN SPREADSHEET IN ERROR - ACTUAL WASTE WAS 23ML - WITNESSED PER ISABEL PAZ - ATTEMPTED TO CORRECT DOCUMENTATION - DOES NOT LOOK CORRECT - ATTEMPTED TO PHONE PHARMACY FOR CORRECTION IN SPREADSHEET - PER RANJAN IN PHARMACY UNABLE TO CORRECT SPREADSHEET
[2020-06-16] MEDS: levofloxacin-dextrose 5 % 750 MG/150 ML PREMIX 100 MG IV (19:33)
[2020-06-16 20:00] VITALS: BP 133/82; PULSE 108; RESP 20; TEMP 36.6; O2SAT 95
[2020-06-17] VITALS (8 sets, daily range): BP systolic 103–118; BP diastolic 62–79; PULSE 85–115; RESP 15–18; TEMP 36.4–37.1; O2SAT 95–99
[2020-06-17] MEDS: guaiFENesin 100 mg/5 mL UDC 10 mL 200 MG PO (02:03)
--- NOTE | 2020-06-17 06:00 | NUR.SHIFT ---
Patient has had some minor complaints of pain or difficulty breathing, this was not witnessed by this nurse. Patient has been trying to cough in order to clear her lungs
[2020-06-17 06:17] LABS: Procalcitonin 0.08 ng/mL (0-0.5)
[2020-06-17] MEDS: morphine 4 mg/mL SDV 1 mL 2 MG IVP (08:09)
--- NOTE | 2020-06-17 08:10 | PC.NURSE ---
Notified Dr Osborne, patient says I having chest pain on the right side of the chest. I swallowed some spit and now she has chest pain. she said I feel like it could be a heart attack but I have never had one before so I'm not sure. We gave her 2mg of morphine for pain.
--- NOTE | 2020-06-17 08:51 | PC.NURSE ---
notified Dr Osborne, refused her nicotine patch, senna, and protonix this morning
[2020-06-17] MEDS: fentaNYL 50 mcg/mL INJ 2mL 100 MCG XX (10:58)
--- NOTE | 2020-06-17 11:01 | PC.NURSE ---
Dr Peterson administered Fentanyl
--- NOTE | 2020-06-17 11:07 | ANE.PACU2 ---
Inpatient post-anesthesia follow up: Airway intact: Yes Vital signs: Temperature 97.7 F Pulse Rate [Left R adial] 116 Pulse Rate 85 Respiratory Rate 18 Blood Pressure [Le ft Arm] 132/89 Blood Pressure 106/76 Pulse Oximetry 98 Oxygen Delivery Me thod Room Air Oxygen Flow Rate 2.5 Fraction of Inspir ed Oxygen Hydration adequate: Yes Nausea and vomiting: No Pain level: 3 Mental status: Baseline Additional Comments: POD#4, OK pain control, bolused 100mcg fentanyl in epidural. To OR tomorrow for vent, plan to pull epidural at time of procedure.
--- NOTE | 2020-06-17 11:38 | PM.PN ---
Subjective Subjective: Interval history: Complaints this morning. Sitting up in bed. States her chest wall discomfort is improved. No shortness of breath. Chest tube is been on waterseal for about 24 hours. She still has a intermittent air leak with deep inspiration and cough. No chest x-ray today. Vitals/I&O/Wt Last Vital Signs Temp 97.7 F 06/17/20 07:34 Pulse 85 06/17/20 07:34 Resp 18 06/17/20 08:09 BP 106/76 06/17/20 07:34 Pulse Ox 98 06/17/20 07:34 06/16/20 06/17/20 06/17/20 22:59 06:59 14:59 Intake Total 580 / 940 100 / 1040 720 / 720 Output Total 0 / 240 20 / 260 Balance 580 / 700 80 / 780 720 / 720 Physical Exam Chest: COMMONS NORMALS: normal inspection of the chest (Chest tube is in position. No subcutaneous emphysema.) Resp: COMMON NORMALS: normal respiratory effort, No retractions and clear to auscultation bilaterally AUSCULTATION: clear to auscultation bilaterally Urinary Catheter Management^: Pelayo: Cath Placed During This Visit: yes, but has since been removed by the nurse Reason for Continuing Indwelling Catheter: Accurate Measurement of Urinary Output in Critically Ill Patients Urinary Catheter Date of Insertion: 06/08/20 Urinary Catheter Time of Insertion: 01:34 Date Urinary Catheter Removed: 06/10/20 Time Urinary Catheter Discontinued: 20:54 Data : 06/16/20 05:30 06/16/20 05:30 A&P Assessment and plan (1) Spontaneous pneumothorax: Persistent air leak despite thoracostomy tube trial, bleb resection and pleurodesis. Plan: We will plan for thoracic vent placement tomorrow with removal of the chest tube and planned outpatient management. All tobacco avoidance was carefully discussed and she stated understanding. She does appear to be motivated to comply. Greatly appreciate the expertise of Dr. Osborne and our hospitalist colleagues. 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
--- NOTE | 2020-06-17 11:39 | PC.NURSE ---
sputum sample collected and sent to lab
--- NOTE | 2020-06-17 14:47 | P.PN_ITS ---
Subjective Subjective: Interval history: Patient c/o right sided chest pain No fever or chills, No nausea or vomiting. Medications: Reviewed: Yes Vitals/I&O/Wt Last Vital Signs Temp 97.7 F 06/17/20 11:40 Pulse 92 06/17/20 11:40 Resp 17 06/17/20 11:40 BP 107/75 06/17/20 11:40 Pulse Ox 97 06/17/20 11:40 06/16/20 06/17/20 06/17/20 22:59 06:59 14:59 Intake Total 580 / 940 100 / 1040 720 / 720 Output Total 0 / 240 20 / 260 Balance 580 / 700 80 / 780 720 / 720 Physical Exam Narrative: EXAM NARRATIVE: Thin young female General - NAD, Awake alert Chest : Decrease BS at Right base - Chest tube - currently to water seal CVS : S1, S2 sinus Abdomen soft nontender bowel sound present Lower extremity no edema gangrene ulcer No neurological deficit Urinary Catheter Management^: Pelayo: Cath Placed During This Visit: yes, but has since been removed by the nurse Reason for Continuing Indwelling Catheter: Accurate Measurement of Urinary Output in Critically Ill Patients Urinary Catheter Date of Insertion: 06/08/20 Urinary Catheter Time of Insertion: 01:34 Date Urinary Catheter Removed: 06/10/20 Time Urinary Catheter Discontinued: 20:54 Data : 06/16/20 05:30 06/16/20 05:30 A&P Assessment and plan (1) Spontaneous pneumothorax: S/p Right thoracoscopy with apical bleb resection/mechanical and chemical pleurodesis Currently to water seal Noted to have air leak CTS on board and managing Chest -xray in am Pain control Plan for thoravent in am NPO at midnight further management per CTs Status: Acute (2) Leukocytosis: Levaquin 750 mg IV daily Sputum culture Patient has poor dentition - noted recurrent dental infection Afebrile repeat CBC in am Status: Acute (3) Nicotine dependence: Patient counseled extensively to quit smoking, Nicotine Patch PRN Status: Acute (4) Breast mass: Dense bilateral breast tissue with well-circumscribed 2.2 x 1.5 cm ovoid lesion upper outer right breast Incidental noted on CT chest Will arrange for outpatient work up with oncology Patient noted 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 Patient however has not had any history of Biopsy. 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
--- NOTE | 2020-06-17 15:59 | PC.CHAP ---
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 traveling sales representative visit [] Patient/Family/Request visit [] Outpatient visit [XX] Follow-up visit [] Physician referral [] Code/Alert [] Routine visit [] Staff referral [] Actively dying [] Patient sleeping [] Family support [] [] Out of room [] Palliative care [] [] Receiving care in room [] Pre-surgical visit [] Trauma [XX] Long length of stay [] ICU visit [] Other: Relational/Emotional Strength [XX] Patient feels connected with others/family/visitors/staff [] Distress [] Loneliness/isolation [] Abandonment Spirituality of Patient [XX] Person of Rosalina [] Attends Lutheran of their Rosalina [XX] Believes in Prayer [] Reads Bible or Anglican materials [] There are Spiritual issues to be addressed Manager Exchange Interventions [XX] Prayer [XX] Active listening [XX] Non-anxious presence [XX] Spiritual/emotional support [] Crisis/trauma care [] Spiritual counseling [] Bereavement support [] Provided bereavement packet [] Provided Bible/devotional materials [] Provided toy/stuffed animal, coloring book to patient or family member [] Provided Communion [] Anointing/[place] [] Salvation [XX] Completed spiritual assessment [] Other: Impact on Illness or Injury [] Angry [] Fearful [] Anxious [] Often cries [] Exhaustion [] Unable to work [] Unable to attend hindu [] Unable to walk/stand [] Unable to read [] Unable to drive [] Unable to eat/drink [] Unable to sleep [] Unable to be with family [] Patient intubated [] Other: Summary: Pt diagnosed with COPD and emphysema at a young age. Recent admission due to collapsed lung. Pt is much improved, sitting up in bed and able to talk. Her was sleeping in the room; he'd been granted permission to stay with her to reduce her anxiety. Her children are being cared for by grandma. Pt was able to easily stop smoking for which she is grateful. There is a surgery tomorrow and then she is hoping to be discharged on Thursday. Time spent with patient: 20 mins
[2020-06-17] MEDS: levofloxacin-dextrose 5 % 750 MG/150 ML PREMIX 100 MG IV (19:32)
[2020-06-18] VITALS (13 sets, daily range): BP systolic 108–132; BP diastolic 76–90; PULSE 90–119; RESP 16–24; TEMP 36.6–37.2; O2SAT 92–100
--- NOTE | 2020-06-18 01:12 | PC.NURSE ---
STRAIGHT CATH Pt was c/o numbness in abdomen and only urinating dribbles. Had used Ropivacaine prn dosing more this evening than she says she has previously and has some numbness that usually is not there. Is able to move all extremities and feel just says a little numbness and tingling. Bladder felt distended and firm. Bladder scan done and showed >817 ml. While I was getting supplies to do straight cath she used BSC and voided 200ml. Still felt distended so cath done. Drained 625ml urine from bladder and says feels much better
[2020-06-18] MEDS: LORazepam 2 mg/mL INJ 1 mL 1 MG IVP (02:16)
--- NOTE | 2020-06-18 04:23 | XRR_ITS ---
PROCEDURE INFORMATION: Exam: XR Chest, 1 View Exam date and time: 06/18/2020 4:31 AM Age: 40 years old Clinical indication: Device placement; Chest tube; Shortness of breath; Additional info: SOB, chest tube to water seal TECHNIQUE: Imaging protocol: XR of the chest Views: 1 view. COMPARISON: CR XR chest 1V portable [id number] 06/16/2020 5:40 AM FINDINGS: Tubes, catheters and devices: Persistent right chest tube tip positioning at the apex medially. Lungs: Atelectasis or scarring right suprahilar and paramediastinal partially collapsed upper lobe. Left apical pleuroparenchymal thickening. Atelectasis right lower lung. Pleural spaces: Interval increased size of right pneumothorax with pleural separation superiorly measuring 4.0 cm and in the lower right hemithorax measuring 5.0 cm. Heart/Mediastinum: Stable heart size. Bones/joints: Unremarkable. XR/XR chest 1V portable [id number] IMPRESSION: Increasing size of right pneumothorax. Increasing atelectasis right suprahilar paramediastinal upper lobe and right lower lung.
--- NOTE | 2020-06-18 04:32 | PC.NURSE ---
RESP Has been sleeping since Ativan was given. Resp seem more labored. VS check done. O2 sat is 90-92% on 3l NC. Pt denies breathing is any different. CT remains to water seal with air leak cont present. Radiology coming to do PCXR. Pt is not happy that we have woke her up. Says is first time she has gotten sleep for almost 10 nights
--- NOTE | 2020-06-18 04:46 | PC.NURSE ---
CXR PCXR has been done and tech is taking to ER for Dr to look at
--- NOTE | 2020-06-18 04:59 | PC.NURSE ---
CXR Radiology called with report that CXR is little worse but nothing emergent. Says Dr Boyce can look at it this am when here
--- NOTE | 2020-06-18 05:56 | PC.NURSE ---
ROUNDING Is resting and appears to be sleeping quietly at present. remains at bedside and is also asleep. He was threatening to leave earlier because pt was mad at him when was awakened with CXR. They were arguing back and forth. Tried to assure pt that we were just concerned and needed to make sure nothing was going on with her. CT remains in place and to water seal. Cont with air leak. No drainage noted. Has c/o pain in right chest and uses prn dosing of Ropivacaine epidural as well as the continuous dosing. Was talking with her during night and she actually told me she has had problems with pain in right chest and SOB for couple of years. Discussed need for her to stop smoking is a high priority. Has not urinated since previous straight cath done. NPO since midnight for scheduled OR for today.
--- NOTE | 2020-06-18 05:57 | PM.PN ---
Subjective Subjective: Interval history: Doing well. Unfortunately, chest x-ray on [facility] revealed increase in the pneumothorax consistent with persistent air leak. Vitals/I&O/Wt Last Vital Signs Temp 97.8 F 06/18/20 04:00 Pulse 111 H 06/18/20 04:00 Resp 24 H 06/18/20 04:00 BP 132/88 06/18/20 04:00 Pulse Ox 92 06/18/20 04:00 06/17/20 06/17/20 06/18/20 14:59 22:59 06:59 Intake Total 1200 / 1200 250 / 1450 340 / 1790 Output Total 0 / 0 825 / 825 Balance 1200 / 1200 250 / 1450 -485 / 965 Physical Exam Chest: COMMONS NORMALS: normal inspection of the chest and normal palpation of entire chest wall Resp: COMMON NORMALS: normal respiratory effort, No retractions, No use of accessory muscles and percussion normal EFFORT & INSPECTION: Yes able to speak in complete sentences and Yes symmetric chest movement PERCUSSION: percussion normal OTHER: Slight decreased breath sounds on the right Cardio: COMMON NORMALS: regular rate, regular rhythm, S1 normal heart sound present, No gallops present (Cardio) and No murmurs present (Cardio) RATE: regular rate RHYTHM: regular rhythm HEART SOUNDS: S1 normal heart sound present Urinary Catheter Management^: Pelayo: Cath Placed During This Visit: yes, but has since been removed by the nurse Reason for Continuing Indwelling Catheter: Accurate Measurement of Urinary Output in Critically Ill Patients Urinary Catheter Date of Insertion: 06/08/20 Urinary Catheter Time of Insertion: 01:34 Date Urinary Catheter Removed: 06/10/20 Time Urinary Catheter Discontinued: 20:54 Data : 06/16/20 05:30 06/16/20 05:30 Micro: Microbiology 06/17/20 11:40 Gram Stain - Final Sputum - Expectorated Sputum A&P Assessment and plan (1) Spontaneous pneumothorax: Persistent pneumothorax despite bleb resection and pleurodesis Plan: 13 [place] thoracic vent placement this morning. Rationale again discussed with Ms. Snell. She is agreeable to proceed. 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
[2020-06-18] MEDS: LORazepam 2 mg/mL INJ 1 mL 0.5 MG IVP (09:12)
--- NOTE | 2020-06-18 09:20 | PC.NURSE ---
[id number] Bland that patient had a chest xray last night because patient was breathing harder. She has chest tube and is scheduled to get a thoracic vent today. Patient has epidural in place. Patient said she is now having an anxiety attach now because no doctor has came and seen her since the xray was done. Dr Bland put order in for Ativan. Baseball Winder administered Ativan as ordered.
--- NOTE | 2020-06-18 10:05 | PC.NURSE ---
patient taken to OR via gurney. at bedside.
[2020-06-18] MEDS: sodium chloride 0.9% 1,000 ML 30 ML IV (10:15)
--- NOTE | 2020-06-18 10:23 | P.PN_ITS ---
Subjective Subjective: Interval history: Sylvia reports she is anxious, and having a panic attack. She denies any chest pain. She reports her breathing is about the same as it has been the last several days. Medications: Reviewed: Yes Vitals/I&O/Wt Last Vital Signs Temp 99 F 06/18/20 10:10 Pulse 111 H 06/18/20 10:10 Resp 20 H 06/18/20 10:10 BP 114/86 06/18/20 10:10 Pulse Ox 95 06/18/20 10:10 06/17/20 06/18/20 06/18/20 22:59 06:59 14:59 Intake Total 250 / 1450 340 / 1790 Output Total 0 / 0 825 / 825 Balance 250 / 1450 -485 / 965 Physical Exam Narrative: EXAM NARRATIVE: Exam is no apparent distress Neck supple no lymphadenopathy Cardiovascular tachycardic, regular without murmur Lungs coarse bilaterally, more at the bases Abdomen is soft with positive bowel sounds Extremities no cyanosis clubbing or edema Urinary Catheter Management^: Pelayo: Cath Placed During This Visit: yes, but has since been removed by the nurse Reason for Continuing Indwelling Catheter: Accurate Measurement of Urinary Output in Critically Ill Patients Urinary Catheter Date of Insertion: 06/08/20 Urinary Catheter Time of Insertion: 01:34 Date Urinary Catheter Removed: 06/10/20 Time Urinary Catheter Discontinued: 20:54 Data : 06/16/20 05:30 06/16/20 05:30 Micro: Microbiology 06/17/20 11:40 Gram Stain - Final Sputum - Expectorated Sputum A&P Assessment and plan (1) Spontaneous pneumothorax: S/p Right thoracoscopy with apical bleb resection/mechanical and chemical pleurodesis Having an air leak Appreciate cardiothoracic surgery evaluation and management. Plan for Thora vent today. Status: Acute (2) Leukocytosis: Improved Continue Levaquin Sputum culture pending Status: Acute (3) Nicotine dependence: Counseled to quit Continue nicotine patch Status: Acute (4) Breast mass: Dense bilateral breast tissue with well-circumscribed 2.2 x 1.5 cm ovoid lesion upper outer right breast Incidental noted on CT chest Will need outpatient work-up Status: Acute Attestations Medical Necessity Statement*: Needs continued hospitalization for definitive treatment of pneumothorax Coding Level of Care Code Acute Guest Relations Manager for [facility] Ellie Diagnoses Spontaneous pneumothorax J93.83 Leukocytosis D72.829 Nicotine dependence F17.200 Breast mass N63.0
--- NOTE | 2020-06-18 10:25 | ANES.PREANE2 ---
Pre-Anesthetic Assessment Pre-Anesthetic Assessment: Height/Weight: Height 1.6 m Weight 45.359 kg Temp Pulse Resp BP Pulse Ox 99 F 111 H 20 H 114/86 95 06/18/20 10:10 06/18/20 10:10 06/18/20 10:10 06/18/20 10:10 06/18/20 10:10 Preop Diagnosis: Spontaneous pneumothorax with persistent air leak status post thoracostomy Proposed Procedure: Operation Date: 06/13/20 15:00 Proposed Procedures s Pleurodesis(Right) - Kelvin Boyce MD p possible thoracoscopy with wedge resection(Right) - Kelvin Boyce MD Operation Date: 06/18/20 10:50 Proposed Procedures p Thoracic Vent(Right) - Kelvin Boyce MD Familial anesthetic complications: None Was Beta Linda taken within 24 hours: N/A Last intake: Intake Last Liquid Date 06/18/20 Last Liquid Time 00:00 Last Solid Date 06/17/21 Last Solid Time 17:00 Social: Social History: Tobacco Exam: Pre-Anes Outpt Exam: alert, oriented x 3 and regular rate & rhythm Additional Exam Findings (including area of procedure): coarse breath sounds b/l Airway: Cervical ROM: WNL MP: 2 Dentition: Chipped and Other (poor dentition) Pulmonary: Pulmonary: COPD Comments: PTX Anesthetic Plan: ASA status: 3 Anesthesia: MAC Meds/Allergies Current Medications: Current Medications Generic Name Dose Route Start Last Admin Trade Name Freq PRN Reason Stop Dose Admin Guaifenesin 200 mg 06/13/20 18:59 06/17/20 02:03 Guaifenesin 100 Mg/5 Ml Udc 10 Ml PO 200 mg Q4H PRN Administration COUGH Ropivacaine 200 mg in 100 mls @ 6 mls/hr 06/13/20 15:45 06/18/20 01:25 Naropin Premix EPIDURAL 6 mls/hr .[id number] KEZIA Administration Levofloxacin/Dextr ose 750 mg in 150 mls @ 100 mls/hr 06/15/20 20:00 06/17/20 21:15 Levaquin-D5w IV Infused Q24H KEZIA Infusion Protocol Lanolin 1 applic 06/13/20 19:27 06/13/20 21:33 Lanolin Oint 7 G m TOPICAL 1 applic PRN PRN Administration DRYNESS Nicotine 1 patch 06/11/20 09:34 06/18/20 09:10 Nicotine 21 Mg P atch TRANSDERMA Not Given DAILY KEZIA Pantoprazole Sodiu m 40 mg 06/14/20 09:00 06/18/20 09:[address] 40 Mg Tablet PO Not Given DAILY KEZIA Senna/Docusate Sod ium 1 tab 06/08/20 09:00 06/18/20 09:10 Sennosides-Docus ate Tablet PO Not Given DAILY KEZIA PFSH Anesthesia PFSH: Medical History Marijuana abuse Smoker Surgical History Status post chest tube placement right -- 05/2020 Family History Mother Atelectasis Social History Smoking and tobacco status: current every day smoker cigarettes [ Other cigarette details: Smokes 2 to 3 packs a day ] Alcohol intake: never Substance/Drug Use: current Substance/Drug use type: Marijuana Female Reproductive History: Date of last menstrual period: 06/05/20 Data Anesthesia CBC & Chem 7: 06/16/20 05:30 06/16/20 05:30 Other Labs: Laboratory Results - last 48 hr 06/16/20 05:30 Procalcitonin 0.08 Micro: Microbiology 06/17/20 11:40 Gram Stain - Final Sputum - Expectorated Sputum Cardiac Studies: No Data to Display
--- NOTE | 2020-06-18 10:27 | ANE.PACU2 ---
Inpatient post-anesthesia follow up: Airway intact: Yes Vital signs: Temperature 99 F Pulse Rate [Left R adial] 116 Pulse Rate 111 Respiratory Rate 20 Blood Pressure [Le ft Arm] 132/89 Blood Pressure 114/86 Pulse Oximetry 95 Oxygen Delivery Me thod Nasal Cannula Oxygen Flow Rate 4 Fraction of Inspir ed Oxygen Hydration adequate: Yes Nausea and vomiting: No Pain level: 2 Mental status: Baseline Additional Comments: Epidural pulled, tip intact
--- NOTE | 2020-06-18 11:49 | PM.OP ---
Operative Report Date of procedure: June 18, 2020 Pre-op Diagnosis: Spontaneous pneumothorax with persistent air leak status post thoracostomy Post-op diagnosis: same Procedure Done: Right 13 Macedonian thoracic vent placement Pathology: none sent Surgeon: Kelvin Boyce Anesthesia: MAC and Local Complications: None Condition: stable Disposition: floor Brief History: 40-year-old female status post presentation with a spontaneous right pneumothorax it was treated with thoracostomy tube for several days with continued air leak. She is now several days postop from bleb resection of the right apex along with mechanical and chemical pleurodesis. She continued to have an air leak. I have elected to transition from chest tube to thoracic vent for possible outpatient management. Rationale was carefully discussed. Proper consents have been reviewed and signed. Procedure: After careful positioning, Ms. Pinau consultation for our anesthesia colleagues with continuous monitoring of heart rate, blood pressure, EKG, and O2 saturation. Her right anterior chest wall was then sterilely prepped and draped. 1% lidocaine was infiltrated in the mid clavicular line over the second intercostal space. A #11 scalpel blade was used to incise the skin. Next, a trocar 13 Macedonian thoracic vent was inserted through the incision and then by direct firm and controlled pressure into the right pleural space where the vent was advanced over the trocar as it was removed. The vent indicator was consistent with intrapleural positioning. The vent was secured to the skin with adhesive tabs and also with 2-0 silk suture. The vent was then connected to Pleur-evac suction where further air was evacuated. The patient had the expected pleuritic reaction with a short interval of increased discomfort which resolved. Vital signs remained stable throughout the procedure. Dressings were secured. Breath sounds are now much improved. Chest x-ray is pending. I did rehabilitation counselor with at the completion of the procedure. Previously placed right chest tube was removed and dressing applied.
--- NOTE | 2020-06-18 11:56 | XR_ITS ---
WS: [id number] PORTABLE CHEST HISTORY: THORACIC VENT PLACEMENT COMPARISON: 06/18/2020 RIGHT thoracostomy tube has been exchanged for a small bore chest tube present over the RIGHT upper t horax. The subpulmonic component of the pneumothorax has decreased. Overall the pneumothorax is decre ased in size but there is still a 10% pneumothorax present on the RIGHT. LEFT lung is clear. Surgical sutures are present in the medial RIGHT upper lung. Subcutaneous air on the RIGHT. No pleural effusion or pneumothorax. Cardiac size: Normal. Mediastinum/Aorta: Normal mediastinum. No osseous abnormality seen. XR/XR chest 1V portable [id number] IMPRESSION: 1. Small bore chest tube is now present projecting over the RIGHT upper thorax . 2. Persistent 10% RIGHT apical pneumothorax. 3. Postsurgical sutures medial RIGHT upper lung.
[2020-06-18] MEDS: fentaNYL 50 mcg/mL INJ 2mL 100 MCG XX (11:59)
[2020-06-18] MEDS: HYDROmorphone 1 mg/mL INJ 1 mL 0.4 MG IVP (12:33)
--- NOTE | 2020-06-18 12:42 | PC.NURSE ---
updated patient's twice at nurses station, that it looks like patient is in recovery but we have not received any report at this time. Advised patient's to wait in the room. Patient's said he would like to talk to administration because he doesn't feel like he is being updated about patient's procedure. [place] notified
[2020-06-18] MEDS: HYDROcodone-acetaminophen 5-325 mg Tablet 1 TAB PO ×2 (14:17→20:26)
[2020-06-18 14:33] LABS: Alpha 1 Antitrypsin 186 mg/dL (83-199)
--- NOTE | 2020-06-18 14:54 | ANE.PACU2 ---
Inpatient post-anesthesia follow up: Airway intact: Yes Vital signs: Temperature 98.2 F Pulse Rate [Left R adial] 116 Pulse Rate 99 Respiratory Rate 18 Blood Pressure [Le ft Arm] 132/89 Blood Pressure 116/87 Pulse Oximetry 99 Oxygen Delivery Me thod Nasal Cannula Oxygen Flow Rate 4 Fraction of Inspir ed Oxygen Hydration adequate: Yes Nausea and vomiting: No Pain level: 4 Mental status: Baseline
--- NOTE | 2020-06-18 15:21 | PC.NURSE ---
patient complained that tape from thoracic vent was making it where she couldn't move her arm. Plastic Process Technician notified Dr Boyce. Dr Boyce, said to adjust the tape in her armpit and use extra tape if needed.
--- NOTE | 2020-06-18 16:36 | PC.NURSE ---
patient resting with eyes closed.
--- NOTE | 2020-06-18 16:37 | PC.NURSE ---
patient's oxygen saturation is 94-96% on room air.
--- NOTE | 2020-06-18 17:26 | PM.MISC ---
Miscellaneous Note Note: Ms. Snell is sleeping on rounds. I have conferred with my colleagues Dr. Orr and Dr. Cook. I have asked for their expertise in overview of her treatment to give the recommendation as the best course to proceed. My current plan will be to leave her on suction tonight and tomorrow through the thoracic vent and assess air leak and chest x-ray following that.
--- NOTE | 2020-06-18 17:31 | PC.NURSE ---
patient and resting with eyes closed when Dr Boyce came to do rounds.
[2020-06-18] MEDS: levofloxacin-dextrose 5 % 750 MG/150 ML PREMIX 100 MG IV (21:56)
[2020-06-19] VITALS (7 sets, daily range): BP systolic 110–118; BP diastolic 67–87; PULSE 65–97; RESP 17–18; TEMP 36.6–36.8; O2SAT 94–98
[2020-06-19] MEDS: ketorolac 30 mg/mL INJ IVP (00:48)
[2020-06-19 03:13] LABS: Basophils # 0.1 10^3/uL (0.0-0.1); Basophils % 0.6 %; Eosinophils # 0.4 10^3/uL (0.0-0.8); Eosinophils % 3.2 %; Hematocrit 42.5 % (37.0-47.0); Hemoglobin 13.8 g/dL (11.5-15.3); Lymphocytes # 3.2 10^3/uL (0.8-4.8); Lymphocytes % 25.9 %; Mean Corpuscular HGB Conc 32.5 g/dL (30.0-36.0); Mean Corpuscular Hemoglobin 30.8 pg (28.0-34.0); Mean Corpuscular Volume 94.9 fL (81-99); Mean Platelet Volume 12.3 fL (7.4-10.4); Monocytes # 1.1 10^3/uL (0.2-0.9); Monocytes % 8.4 %; Neutrophils # 7.63 10^3/uL (1.8-7.7); Neutrophils % 61.3 %; Nucleated Red Blood Cells % 0 %; Platelet Count 531 10^3/cmm (130-400); Red Blood Count 4.48 10^6/uL (4.1-5.3); Red Cell Distribution Width 12.9 % (12.1-15.1); White Blood Count 12.5 10^3/uL (4.0-10.0)
[2020-06-19 04:06] LABS: Blood Urea Nitrogen 16 mg/dL (6-20); Calcium 8.9 mg/dL (8.5-10.5); Chloride 95 mmol/L (98-107); Glomerular Filtration Rate 137.4 mL/min (90-130); Glucose 148 mg/dL (65-115); Osmolality Calculated 276 mOsm/kg (285-295); Sodium 131 mmol/L (136-145)
[2020-06-19 04:21] LABS: Anion Gap 13.8 (5-19); Carbon Dioxide 28 mmol/L (22-29); Potassium 5.8 mmol/L (3.5-5.1)
--- NOTE | 2020-06-19 06:00 | XRR_ITS ---
PROCEDURE INFORMATION: Exam: XR Chest, 1 View Exam date and time: 06/19/2020 6:36 AM Age: 40 years old Clinical indication: Device placement; Ett placement (vent status); Prior surgery; Surgery type: Chest tube; Additional info: S/P thoracic vent. . . On suction overnight TECHNIQUE: Imaging protocol: XR of the chest Views: 1 view. COMPARISON: CR XR chest 1V portable [id number] 06/18/2020 12:13 PM FINDINGS: Lungs: Prior operative changes within the right upper lobe. Moderate residual apical pneumothorax. Pneumothorax also visualized inferiorly and laterally. Small caliber pigtail catheter superiorly. Small subpulmonic effusion on the right. Emphysema.Left lung is well aerated. Pleural spaces: See Lungs finding. Heart/Mediastinum: Unremarkable. No cardiomegaly. Bones/joints: Unremarkable. XR/XR chest 1V portable [id number] IMPRESSION: 1. Prior operative changes within the right upper lobe. Moderate residual apical pneumothorax. Pneumothorax also visualized inferiorly and laterally. Small caliber pigtail catheter superiorly. Small subpulmonic effusion on the right. 2. Emphysema.Left lung is well aerated.
--- NOTE | 2020-06-19 07:16 | P.PN_ITS ---
Subjective Subjective: Interval history: Rested well last night. Up on the side of the bed this morning. at bedside. Intermittent air leak noted with the thoracic vent on suction. Patient states that her coughing and chest discomfort has mostly resolved with exchange from a chest tube to thoracic vent. Vitals/I&O/Wt Last Vital Signs Temp 97.9 F 06/19/20 03:44 Pulse 76 06/19/20 03:44 Resp 18 06/19/20 03:44 BP 112/78 06/19/20 03:44 Pulse Ox 95 06/19/20 03:44 06/18/20 06/19/20 06/19/20 22:59 06:59 14:59 Output Total 600 / 600 200 / 800 Balance -600 / -492 -200 / -692 Physical Exam Chest: COMMONS NORMALS: normal inspection of the chest (Thoracic vent site clean and dry) Resp: COMMON NORMALS: No retractions, No use of accessory muscles and clear to auscultation bilaterally EFFORT & INSPECTION: Yes able to speak in complete sentences, Yes symmetric chest movement and No tachypneic AUSCULTATION: clear to auscultation bilaterally Cardio: COMMON NORMALS: regular rate, regular rhythm, S1 normal heart sound present, No gallops present (Cardio) and No murmurs present (Cardio) RATE: regular rate RHYTHM: regular rhythm HEART SOUNDS: S1 normal heart sound present Urinary Catheter Management^: Pelayo: Cath Placed During This Visit: yes, but has since been removed by the nurse Reason for Continuing Indwelling Catheter: Accurate Measurement of Urinary Output in Critically Ill Patients Urinary Catheter Date of Insertion: 06/08/20 Urinary Catheter Time of Insertion: 01:34 Date Urinary Catheter Removed: 06/10/20 Time Urinary Catheter Discontinued: 20:54 Data : 06/19/20 02:16 06/19/20 02:16 Micro: Microbiology 06/17/20 11:40 Gram Stain - Final Sputum - Expectorated Sputum Sputum Culture - Preliminary A&P Assessment and plan (1) Spontaneous pneumothorax: First day status post exchange from chest tube to thoracic vent. Plan to keep vent on suction through the day. I have asked my pulmonology colleagues for assessment as to her current plan and course of events. If she continues to do well, we plan to remove suction and consider outpatient management with the thoracic vent. I did discuss with Ms. Channing and her that with her continued air leak options could be considered for tertiary referral to consider bronchial valve or a formal thoracotomy and attempt to hand oversew air leak. This will be in conjunction with biological glue and probably felt as it was felt that the bleb disease has been resected with thoracoscopy and therefore there may be a tissue integrity issue with leak from along the staple line. 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
[2020-06-19] MEDS: pantoprazole DR 40 mg Tablet PO (08:25)
[2020-06-19] MEDS: sennosides-docusate Tablet 1 TAB PO (08:25)
--- NOTE | 2020-06-19 09:55 | P.PN_ITS ---
Subjective Subjective: Interval history: Sylvia reports she is feeling better. She was able to sleep last night. She has less discomfort in her chest. Cardiothoracic surgery has seen her, and is going to have pulmonary evaluate. Medications: Reviewed: Yes Vitals/I&O/Wt Last Vital Signs Temp 97.8 F 06/19/20 07:45 Pulse 89 06/19/20 07:45 Resp 17 06/19/20 07:45 BP 114/78 06/19/20 07:45 Pulse Ox 96 06/19/20 07:45 06/18/20 06/19/20 06/19/20 22:59 06:59 14:59 Intake Total 120 / 120 Output Total 600 / 600 200 / 800 Balance -600 / -492 -200 / -692 120 / 120 Physical Exam Narrative: EXAM NARRATIVE: Exam is no apparent distress Neck supple no lymphadenopathy Cardiovascular tachycardic, regular without murmur Chest tube with small leak. Lungs coarse bilaterally, more at the bases Abdomen is soft with positive bowel sounds Extremities no cyanosis clubbing or edema Urinary Catheter Management^: Pelayo: Cath Placed During This Visit: yes, but has since been removed by the nurse Reason for Continuing Indwelling Catheter: Accurate Measurement of Urinary Output in Critically Ill Patients Urinary Catheter Date of Insertion: 06/08/20 Urinary Catheter Time of Insertion: 01:34 Date Urinary Catheter Removed: 06/10/20 Time Urinary Catheter Discontinued: 20:54 Data : 06/19/20 02:16 06/19/20 02:16 Micro: Microbiology 06/17/20 11:40 Gram Stain - Final Sputum - Expectorated Sputum Sputum Culture - Preliminary A&P Assessment and plan (1) Spontaneous pneumothorax: S/p Right thoracoscopy with apical bleb resection/mechanical and chemical pleurodesis June 13 S/P thoravent 2/3 Appreciate cardiothoracic surgery evaluation and management. Pulmonary consult ordered. Status: Acute (2) Leukocytosis: Improved Continue Levaquin Sputum culture pending Status: Acute (3) Nicotine dependence: Counseled to quit Continue nicotine patch Status: Acute (4) Breast mass: Dense bilateral breast tissue with well-circumscribed 2.2 x 1.5 cm ovoid lesion upper outer right breast Incidental noted on CT chest Will need outpatient work-up Status: Acute Additional A&P Information Elevated potassium. I suspect this is hemolysis. She is on no potassium products.. She is tolerating p.o. well. Recheck in the morning. Full code SCDs currently for DVT prophylaxis. Attestations Medical Necessity Statement*: Needs continued hospitalization for definitive care for pneumothorax with persistent air leak. 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
--- NOTE | 2020-06-19 10:20 | PC.NURSE ---
patient resting with eyes closed
--- NOTE | 2020-06-19 14:12 | P.CONIM_ITS ---
Providers/Reason For Consult Consulting Physican/Specialty*: Pulmonary and critical care medicine Reason for Consult*: Persistent alveolar pleural fistula Attending Physician: Herman Bland MD History of Present Illness History of Present Illness Sylvia Snell is a 40 year old female who presented to the hospital on June 07 with worsening right-sided chest discomfort, which was a . According to the history, the patient had an episode of severe coughing spell on Thursday morning after aspirating cereal. This was followed by development of right- sided chest pain. The chest pain continued to get worse over Thursday prompting hospital visit on . Her past medical history is significant for significant smoking and marijuana use. The initial chest x-ray in the emergency department revealed hyperinflated lung. There was a large right-sided pneumothorax with right lung collapse without any evidence of tension pneumothorax. The patient underwent a chest tube placement in the emergency department. There was evidence of air leak following insertion of the chest tube. There was malpositioning of the chest chest tube initially that was optimized over the next couple of days. When the patient was evaluated on June 12 there was evidence of persistent air leak. The patient underwent a CT scan of the chest on June 12 which revealed bilateral upper lobe predominant emphysema, bullous disease in bilateral apices but no giant bulla. The patient underwent thoracoscopic apical bleb resection, chemical and mechanical pleurodesis on June 13. 28 Vincentian chest tube was left in place after the procedure. Unfortunately, on postop day 1 the patient was found to have a small apical pneumothorax on chest radiology and the air leak persisted. The patient was empirically started on antibiotic on June 15. She was living levofloxacin. The patient was tried on waterseal however the pneumothorax got worse without any suction. On June 19, the right-sided chest tube was switched for a 13 Vincentian thoracic vent. Since the thoracic vent was placed, the patient tells me that her chest co ngestion is less and she is having less pain. Overall the patient reports improvement in her symptoms. Post thoracic vent chest x-ray revealed persistent apical pneumothorax. The thoracic vent is under suction now. Chest x-ray obtained this morning revealed persistent pneumothorax and also small pleural effusion. Today is day 12 since the patient presented to the hospital with the pneumothorax. I have seen and examined the patient. She appears to be comfortable. The patient predominantly has air leak with cough however she also has at least some inspiratory and expiratory air leaks. This would be consistent with a bronchopleural fistula rather than an alveolar pleural fistula. Review of Systems Narrative: General: No fevers chills Skin: No rash HEENT: No nasal congestion, rhinitis, sinusitis, sneezing, hoarseness of voice Neck: There is no neck swelling, mass or swollen glands. No evidence of subcutaneous emphysema in the neck Respiratory: Please see my HPI. Cardiovascular: Mild chest pain over the surgical site Gastrointestinal: No abdominal pain, nausea, vomiting Musculoskeletal: No joint pain or swelling Neurological: Patient is awake alert and oriented x3, no paralysis, gross motor function is normal. Psychiatric: Patient is anxious Meds/Allergies Home Medications and Allergies Home Medications Medication Instructions Recorded Confirmed Last Taken Type No Known Home Medications 06/08/20 06/08/20 Unknown History Allergies Allergy/AdvReac Type Severity Reaction Status Date / Time amoxicillin [From Augmentin] Allergy Intermediate ADR-Vomitin Verified 06/10/20 13:47 g clavulanic acid Allergy Intermediate ADR-Vomitin Verified 06/10/20 13:47 [From Augmentin] g Current Medications Current Medications Generic Name Dose Route Start Last Admin Trade Name Freq PRN Reason Stop Dose Admin Hydrocodone Bitart/Acetaminophen 1 tab 06/18/20 13:21 06/18/20 20:26 Hydrocodone-Acetaminophen 5-325 Mg Tablet PO 1 tab Q4H PRN Administration MODERATE PAIN Guaifenesin 200 mg 06/13/20 18:59 06/17/20 02:03 Guaifenesin 100 Mg/5 Ml Udc 10 Ml PO 200 mg Q4H PRN Administration COUGH Levofloxacin/Dextrose 750 mg in 150 mls @ 100 mls/hr 06/15/20 20:00 06/18/20 21:56 Levaquin-D5w IV 100 mls/hr Q24H KEZIA Administration Protocol Ketorolac Tromethamine 30 mg 06/18/20 13:21 06/19/20 00:48 Ketorolac 30 Mg/Ml Inj IVP 06/23/20 13:20 30 mg Q6H PRN Administration MODERATE PAIN Lanolin 1 applic 06/13/20 19:27 06/13/20 21:33 Lanolin Oint 7 Gm TOPICAL 1 applic PRN PRN Administration DRYNESS Nicotine 1 patch 06/11/20 09:34 06/19/20 08:24 Nicotine 21 Mg Patch TRANSDERMA Not Given DAILY KEZIA Pantoprazole Sodium 40 mg 06/14/20 09:00 06/19/20 08:[address] 40 Mg Tablet PO 40 mg DAILY KEZIA Administration Senna/Docusate Sodium 1 tab 06/08/20 09:00 06/19/20 08:25 Sennosides-Docusate Tablet PO 1 tab DAILY KEZIA Administration PFSH Acute PFSH: Medical History Marijuana abuse Smoker Surgical History Status post chest tube placement right -- 05/2020 Family History Mother Atelectasis Social History Smoking and tobacco status: current every day smoker cigarettes [ Other cigarette details: Smokes 2 to 3 packs a day ] Alcohol intake: never Substance/Drug Use: current Substance/Drug use type: Marijuana Female Reproductive History: Date of last menstrual period: 06/05/20 Vitals/I&O/Wt Last Vital Signs Temp 98.3 F 06/19/20 11:23 Pulse 65 06/19/20 11:23 Resp 17 06/19/20 11:23 BP 113/77 06/19/20 11:23 Pulse Ox 94 06/19/20 11:23 06/18/20 06/19/20 06/19/20 22:59 06:59 14:59 Intake Total 240 / 240 Output Total 600 / 600 200 / 800 Balance -600 / -492 -200 / -692 240 / 240 Physical Exam Narrative: EXAM NARRATIVE: General: Patient is awake alert and oriented, in no distress. Neck: No JVD, no cervical or supraclavicular lymphadenopathy. Respiratory: Inspection: Barrel-shaped chest, thoracic vent in the right anterior chest wall Palpation: Trachea is midline Percussion: Bilateral tympanic percussion note anteriorly Auscultation: Reduced breath sound in the right hemithorax especially in the upper lung zones both anteriorly and posteriorly, reduced breath sound in the left lung, no wheezing or rhonchi Cardiovascular: Regular rate and rhythm, S1-S2 present, no murmur, distant heart sound, no peripheral edema. Abdomen: Soft, nontender, nondistended, positive bowel sound Musculoskeletal: No obvious joint deformity Skin: No rash, no evidence of erythema nodosum or multiforme. Neuro: Mental status is normal, no gross cranial nerve deficit, normal motor and coordination. Urinary Catheter Management^: Pelayo: Cath Placed During This Visit: yes, but has since been removed by the nurse Reason for Continuing Indwelling Catheter: Accurate Measurement of Urinary Output in Critically Ill Patients Urinary Catheter Date of Insertion: 06/08/20 Urinary Catheter Time of Insertion: 01:34 Date Urinary Catheter Removed: 06/10/20 Time Urinary Catheter Discontinued: 20:54 Data Micro: Micro: Microbiology 06/17/20 11:40 Gram Stain - Final Sputum - Expector ated Sputum Sputum Culture - F inal Other Data: Attestation for Other Data: I personally reviewed and interpreted the following: Other data: I have reviewed the patient's laboratory, microbiologic and radiologic data. A detailed description of the radiologic data can be found in HPI. The patient has mild leukocytosis, which is not wor sening. The sputum culture from June 17 grew normal respiratory munir. A&P Assessment and plan (1) Secondary spontaneous pneumothorax: The patient has an extensive history of smoking as well as marijuana use. The CT scan of the chest is consistent with bilateral upper lobe predominant centrilobular emphysema in addition to apical bullous disease. The development of pneumothorax in this patient would be considered as secondary spontaneous pneumothorax. 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 The air leak is more prominent expectedly with forced maneuvers such as coughing however she also has at least some evidence of air leak during expiration and occasionally during inspiration as well. This would be consistent with a diagnosis of bronchopleural fistula rather than alveolar pleural fistula. Unfortunately, the bronchopleural fistula has persisted even after thoracoscopic resection of the right apical bulla and chemical and mechanical pleurodesis. The right-sided pneumothorax has also persisted even with the patient being on continuous suction through the thoracic vent. I had not evaluated the patient before, however according to the patient, the bronchopleural fistula appears to be smaller than before. At this point, we have 2 options. The patient can possibly go home with a thoracic vent. The thoracic vent will prevent development of tension pneumothorax and hopefully help with the healing of the bronchopleural fistula. Unfortunately, this also comes with a significant risks. The patient lives about 45 minutes from the hospital. If something were to go wrong with the thoracic vent this could result in respiratory compromise especially in the setting of significant emphysema in the opposite lung. Moreover, there would be high risk of developing pleural space infection including empyema with persistent air leak as well as having the thoracic vent in place. The best course of action would be to do bronchoscopic intervention including an endobronchial valve placement however this will require the patient to be transferred to tertiary care hospital. The patient told me that she does not h ave any health insurance and her would not be able to travel to [place] if that were to be the case. I think the patient could possibly be managed a couple more days with conservative approach and if there is no significant improvement she should probably undergo definitive therapy. Status: Acute (3) Emphysema of lung: The patient has emphysema. She has been smoking since she was 14 years old. Once all of this is sorted out, she will need outpatient therapy for her emphysema and likely COPD. Thank you for the consultation. 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
[2020-06-19] MEDS: levofloxacin-dextrose 5 % 750 MG/150 ML PREMIX 100 MG IV (19:11)
[2020-06-19] MEDS: alum-mag-hydroxide-sime 30 mL UDC PO (21:19)
[2020-06-20 02:34] LABS: Basophils # 0.1 10^3/uL (0.0-0.1); Basophils % 0.5 %; Eosinophils # 0.5 10^3/uL (0.0-0.8); Eosinophils % 3.5 %; Hematocrit 40.9 % (37.0-47.0); Hemoglobin 13.6 g/dL (11.5-15.3); Lymphocytes # 4.1 10^3/uL (0.8-4.8); Lymphocytes % 30.7 %; Mean Corpuscular HGB Conc 33.3 g/dL (30.0-36.0); Mean Corpuscular Hemoglobin 30.6 pg (28.0-34.0); Mean Corpuscular Volume 92.1 fL (81-99); Mean Platelet Volume 9.1 fL (7.4-10.4); Monocytes # 1.4 10^3/uL (0.2-0.9); Monocytes % 10.2 %; Neutrophils # 7.21 10^3/uL (1.8-7.7); Neutrophils % 54.4 %; Nucleated Red Blood Cells % 0 %; Platelet Count 514 10^3/cmm (130-400); Red Blood Count 4.44 10^6/uL (4.1-5.3); Red Cell Distribution Width 12.6 % (12.1-15.1); White Blood Count 13.3 10^3/uL (4.0-10.0)
[2020-06-20 02:55] LABS: Anion Gap 11.9 (5-19); Blood Urea Nitrogen 16 mg/dL (6-20); Carbon Dioxide 28 mmol/L (22-29); Chloride 100 mmol/L (98-107); Glomerular Filtration Rate 137.4 mL/min (90-130); Glucose 104 mg/dL (65-115); Osmolality Calculated 283 mOsm/kg (285-295); Potassium 3.9 mmol/L (3.5-5.1); Sodium 136 mmol/L (136-145)
[2020-06-20 03:55] VITALS: BP 103/69; PULSE 89; RESP 18; TEMP 36.6; O2SAT 97
--- NOTE | 2020-06-20 06:00 | XR_ITS ---
WS: [id number] Portable AP upright chest, 06/20/2020 Clinical Data: Transition from chest tube to thoracic vent for postop airle Comparison: Portable chest, 06/19/2020 Findings: There is a small chest tube in the right mid pleural space. There is a small residual right apical pneumothorax. There is scarring in the medial aspect of the right upper pleural space. There is scarring of the right diaphragm. Subcutaneous emphysema along the chest wall is seen. The left ki g is fully expanded. XR/XR chest 1V portable [id number] Impression: No change in right chest tube, right apical pneumothorax and right chest wall s ubcutaneous emphysema.
--- NOTE | 2020-06-20 06:57 | PM.PN ---
Subjective Subjective: Interval history: Rested well last night. I do note still with apical pneumothorax on chest x-ray this morning with thoracic vent on suction. No substantial subcutaneous emphysema. Up in chair on rounds. Small intermittent air leak remains. Pathology report has returned: Thin walled bleb disease, negative for malignancy Alpha-1 antitrypsin level 186, normal range Vitals/I&O/Wt Last Vital Signs Temp 98 F 06/20/20 03:55 Pulse 89 06/20/20 03:55 Resp 18 06/20/20 03:55 BP 103/69 06/20/20 03:55 Pulse Ox 97 06/20/20 03:55 06/19/20 06/19/20 06/20/20 14:59 22:59 06:59 Intake Total 240 / 240 300 / 540 Output Total 800 / 800 5 / 805 Balance -560 / -560 300 / -260 -5 / -265 Physical Exam Resp: COMMON NORMALS: normal respiratory effort, No retractions, No use of accessory muscles and clear to auscultation bilaterally EFFORT & INSPECTION: Yes able to speak in complete sentences and Yes symmetric chest movement AUSCULTATION: clear to auscultation bilaterally Cardio: COMMON NORMALS: regular rhythm, S1 normal heart sound present and S2 normal heart sound present RHYTHM: regular rhythm HEART SOUNDS: S1 normal heart sound present and S2 normal heart sound present Urinary Catheter Management^: Pelayo: Cath Placed During This Visit: yes, but has since been removed by the nurse Reason for Continuing Indwelling Catheter: Accurate Measurement of Urinary Output in Critically Ill Patients Urinary Catheter Date of Insertion: 06/08/20 Urinary Catheter Time of Insertion: 01:34 Date Urinary Catheter Removed: 06/10/20 Time Urinary Catheter Discontinued: 20:54 Data : 06/20/20 01:51 06/20/20 01:51 Micro: Microbiology 06/17/20 11:40 Gram Stain - Final Sputum - Expectorated Sputum Sputum Culture - Final A&P Assessment and plan (1) Secondary spontaneous pneumothorax: Persistent air leak status post bleb resection with pleurodesis thoracoscopically. Greatly appreciate the expertise and review by Dr. Orr from pulmonary medicine. Therapeutic options discussed with Ms. Snell and family. There are concerns about consideration for tertiary transfer due to the transportation difficulties for the family. I will discuss further with Dr. Orr as to whether consider expectant observation with thoracic vent and follow-up with him at the [facility], operated by [facility] or whether to consider proceeding with a thoracotomy and a formal handsewn repair with felt buttress to the parenchymal air leak. This was also discussed at length with Dayron Snell and family. I will be speaking later this morning with Dr. Orr about our therapeutic options and timeline. Status: Acute Attestations Medical Necessity Statement*: Postoperative air leak status post bleb resection Time Spent in Patient Care: Greater than 35 minutes Coding Level of Care Code Acute Driver Examiner for Chg Fwd Exam Expanded Problem Focused Diagnoses Secondary spontaneous pneumothorax J93.12
--- NOTE | 2020-06-20 07:07 | NUR.SHIFT ---
Patient had sounded better than she had when this nurse had taken care of her previously. Patient had only one complaint of heartburn which was well controlled by Maalox. No complaints of pain.
[2020-06-20 07:26] VITALS: BP 117/73; PULSE 99; RESP 18; TEMP 36.7; O2SAT 97
[2020-06-20] MEDS: pantoprazole DR 40 mg Tablet PO (08:40)
[2020-06-20] MEDS: sennosides-docusate Tablet 1 TAB PO (08:40)
[2020-06-20] MEDS: HYDROcodone-acetaminophen 5-325 mg Tablet 1 TAB PO (09:55)
--- NOTE | 2020-06-20 09:55 | PM.MISC ---
Miscellaneous Note Note: I have conferred with my colleague Dr. Orr. He has been gracious enough to speak with Ms. Snell and her mother today and also of the opinion that the definitive surgical closure of this continuous air leak would be most efficient and direct way to raquel this leak. Therefore, we will tentatively plan to proceed with right thoracotomy and hand suture closure of this leak tomorrow.
--- NOTE | 2020-06-20 10:20 | PM.PN ---
Subjective Subjective: Interval history: Patient was seen and examined this morning. Comfortably resting in bed. No significant complaints. Medications: Reviewed: Yes Vitals/I&O/Wt Last Vital Signs Temp 98.1 F 06/20/20 07:26 Pulse 99 06/20/20 07:26 Resp 18 06/20/20 07:26 BP 117/73 06/20/20 07:26 Pulse Ox 97 06/20/20 07:26 06/19/20 06/20/20 06/20/20 22:59 06:59 14:59 Intake Total 300 / 540 240 / 240 Output Total 5 / 805 200 / 200 Balance 300 / -260 -5 / -265 40 / 40 Physical Exam Narrative: EXAM NARRATIVE: General: Patient is awake alert and oriented, in no distress. Neck: No JVD, no cervical or supraclavicular lymphadenopathy. Respiratory: Inspection: Barrel-shaped chest, thoracic vent in the right anterior chest wall Palpation: Trachea is midline Percussion: Bilateral tympanic percussion note anteriorly Auscultation: Reduced breath sound bilaterally, the breath sound is diminished in the right apical area compared to the left, no wheezing or rhonchi Cardiovascular: Regular rate and rhythm, S1-S2 present, no murmur, distant heart sound, no peripheral edema. Abdomen: Soft, nontender, nondistended, positive bowel sound Musculoskeletal: No obvious joint deformity Skin: No rash, no evidence of erythema nodosum or multiforme. Neuro: Mental status is normal, no gross cranial nerve deficit, normal motor and coordination. Urinary Catheter Management^: Pelayo: Cath Placed During This Visit: yes, but has since been removed by the nurse Reason for Continuing Indwelling Catheter: Accurate Measurement of Urinary Output in Critically Ill Patients Urinary Catheter Date of Insertion: 06/08/20 Urinary Catheter Time of Insertion: 01:34 Date Urinary Catheter Removed: 06/10/20 Time Urinary Catheter Discontinued: 20:54 Data : 06/20/20 01:51 06/20/20 01:51 Micro: Microbiology 06/17/20 11:40 Gram Stain - Final Sputum - Expectorated Sputum Sputum Culture - Final Attestation for Other Data: I personally reviewed and interpreted the following: Other data: I reviewed the patient's laboratory, microbiologic and radiologic data. The patient has persistent right-sided apical pneumothorax with mild subcutaneous emphysema. The white count is stable. A&P Assessment and plan (1) Secondary spontaneous pneumothorax: The patient has an extensive history of smoking as well as marijuana use. The CT scan of the chest is consistent with bilateral upper lobe predominant centrilobular emphysema in addition to apical bullous disease. The development of pneumothorax in this patient would be considered as secondary spontaneous pneumothorax. Status: Acute (2) Bronchopleural fistula: The patient has persistent air leak. I had discussed the treatment options with the patient and his mother in detail. The options included expectant management, endobronchial intervention versus definitive surgical intervention. After talking to the patient and her mother in detail, it appears that the best course of action is likely a definitive intervention procedure at this time. I have also discussed this plan with Dr. Boyce and currently the plan is for the patient to undergo surgical intervention tomorrow. I have answered all the questions that the patient and her mother had. I have explained to them that even with the definitive surgical approach there is always a very minor chance of failure, however, I believe that the surgical intervention could offer definitive therapy and get the patient out of the hospital faster. Status: Acute (3) Emphysema of lung: I will follow up with the patient as outpatient and optimize her COPD treatment. The patient tells me that she has quit smoking. I have encouraged her to continue this. 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
--- NOTE | 2020-06-20 10:24 | PM.PN ---
Subjective Subjective: Interval history: Sylvia reports she is doing okay. No significant pain. She has elected to get a thoracotomy here tomorrow. Medications: Reviewed: Yes Vitals/I&O/Wt Last Vital Signs Temp 98.1 F 06/20/20 07:26 Pulse 99 06/20/20 07:26 Resp 18 06/20/20 07:26 BP 117/73 06/20/20 07:26 Pulse Ox 97 06/20/20 07:26 06/19/20 06/20/20 06/20/20 22:59 06:59 14:59 Intake Total 300 / 540 240 / 240 Output Total 5 / 805 200 / 200 Balance 300 / -260 -5 / -265 40 / 40 Physical Exam Narrative: EXAM NARRATIVE: Exam is no apparent distress Neck supple no lymphadenopathy Cardiovascular tachycardic, regular without murmur Chest tube with small leak. Lungs coarse bilaterally, more at the bases Abdomen is soft with positive bowel sounds Extremities no cyanosis clubbing or edema Urinary Catheter Management^: Pelayo: Cath Placed During This Visit: yes, but has since been removed by the nurse Reason for Continuing Indwelling Catheter: Accurate Measurement of Urinary Output in Critically Ill Patients Urinary Catheter Date of Insertion: 06/08/20 Urinary Catheter Time of Insertion: 01:34 Date Urinary Catheter Removed: 06/10/20 Time Urinary Catheter Discontinued: 20:54 Data : 06/20/20 01:51 06/20/20 01:51 Micro: Microbiology 06/17/20 11:40 Gram Stain - Final Sputum - Expectorated Sputum Sputum Culture - Final A&P Assessment and plan (1) Spontaneous pneumothorax: S/p Right thoracoscopy with apical bleb resection/mechanical and chemical pleurodesis June 13 S/P thoravent 2/3 Appreciate cardiothoracic surgery evaluation and management. Pulmonary consult obtained and appreciated. Patient has elected to get thoracotomy here and hand suture closure of leak. Status: Acute (2) Leukocytosis: Improved Continue Levaquin Sputum culture normal munir to date Status: Acute (3) Nicotine dependence: Counseled to quit Continue nicotine patch Status: Acute (4) Breast mass: Dense bilateral breast tissue with well-circumscribed 2.2 x 1.5 cm ovoid lesion upper outer right breast Incidental noted on CT chest Will need outpatient work-up Status: Acute Additional A&P Information Elevated potassium noted yesterday June 19. Potassium is normal today. This was likely hemolysis. Full code SCDs currently for DVT prophylaxis. Attestations Medical Necessity Statement*: Needs continued hospitalization for therapeutic intervention for pneumothorax, with persistent air leak despite Thora vent. Coding Level of Care Code Acute Testing And Regulating Technician for Chg 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
--- NOTE | 2020-06-20 10:50 | P.ANESASSM_ITS ---
Pre-Anesthetic Assessment Pre-Anesthetic Assessment: Height/Weight: Height 1.6 m Weight 45.359 kg Temp Pulse Resp BP Pulse Ox 98.1 F 99 18 117/73 97 06/20/20 07:26 06/20/20 07:26 06/20/20 07:26 06/20/20 07:26 06/20/20 07:26 Preop Diagnosis: Spontaneous pneumothorax with persistent air leak status post thoracostomy Proposed Procedure: Operation Date: 06/13/20 15:00 Proposed Procedures s Pleurodesis(Right) - Kelvin Boyce MD p possible thoracoscopy with wedge resection(Right) - Kelvin Boyce MD Operation Date: 06/18/20 10:50 Proposed Procedures p Thoracic Vent(Right) - Kelvin Byoce MD Operation Date: 06/21/20 08:30 Proposed Procedures p Thoracotomy(Right) - Kelvin Boyce MD Familial anesthetic complications: none Was Beta Linda taken within 24 hours: N/A Last intake: Intake Last Liquid Date 06/18/20 Last Liquid Time 00:00 Last Solid Date 06/17/21 Last Solid Time 17:00 Social: Social History: Tobacco Comment: marijuana Exam: Pre-Anes Outpt Exam: alert, oriented x 3 and regular rate & rhythm Additional Exam Findings (including area of procedure): diminished Airway: Cervical ROM: WNL MP: 2 Dentition: Chipped and Other (visibly poor dentition) Pulmonary: Pulmonary: COPD Comments: spontaneous ptx Anesthetic Plan: ASA status: 3 Anesthesia: General Other: A line + epid ural Risk of > 500 ml blood loss (7ml/kg in children): No Meds/Allergies Current Medications: Current Medications Generic Name Dose Route Start Last Admin Trade Name Freq PRN Reason Stop Dose Admin Hydrocodone Bitart /Acetaminophen 1 tab 06/18/20 13:21 06/20/20 09:55 Hydrocodone-Acet aminophen 5-325 Mg Tablet PO 1 tab Q4H PRN Administration MODERATE PAIN Al Hydrox/Mg [place] x/Simethicone 30 ml 06/13/20 18:59 06/19/20 21:19 Ceev-Bfg-Hvtmvxk de-Rosalie 30 Ml Udc PO 30 ml Q4H PRN Administration INDIGESTION Guaifenesin 200 mg 06/13/20 18:59 06/17/20 02:03 Guaifenesin 100 Mg/5 Ml Udc 10 Ml PO 200 mg Q4H PRN Administration COUGH Levofloxacin/Dextr ose 750 mg in 150 mls @ 100 mls/hr 06/15/20 20:00 06/19/20 20:57 Levaquin-D5w IV Infused Q24H KEZIA Infusion Protocol Ketorolac Trometha mine 30 mg 06/18/20 13:21 06/19/20 00:48 Ketorolac 30 Mg/ Ml Inj IVP 06/23/20 13:20 30 mg Q6H PRN Administration MODERATE PAIN Lanolin 1 applic 06/13/20 19:27 06/13/20 21:33 Lanolin Oint 7 G m TOPICAL 1 applic PRN PRN Administration DRYNESS Nicotine 1 patch 06/11/20 09:34 06/20/20 08:37 Nicotine 21 Mg P atch TRANSDERMA Not Given DAILY KEZIA Pantoprazole Sodiu m 40 mg 06/14/20 09:00 06/20/20 08:[address] 40 Mg Tablet PO 40 mg DAILY KEZIA Administration Senna/Docusate Sod ium 1 tab 06/08/20 09:00 06/20/20 08:40 Sennosides-Docus ate Tablet PO 1 tab DAILY KEZIA Administration PFSH Anesthesia PFSH: Medical History Marijuana abuse Smoker Surgical History Status post chest tube placement right -- 05/2020 Family History Mother Atelectasis Social History Smoking and tobacco status: current every day smoker cigarettes [ Other cigarette details: Smokes 2 to 3 packs a day ] Alcohol intake: never Substance/Drug Use: current Substance/Drug use type: Marijuana Female Reproductive History: Date of last menstrual period: 06/05/20 Data Anesthesia CBC & Chem 7: 06/20/20 01:51 06/20/20 01:51 Other Labs: Laboratory Results - last 48 hr 06/14/20 06/19/20 06/19/20 10:46 02:16 02:16 WBC 12.5 H RBC 4.48 Hgb 13.8 Hct 42.5 MCV 94.9 MCH 30.8 MCHC 32.5 RDW 12.9 Plt Count 531 H MPV 12.3 H Neut % (Auto) 61.3 Lymph % (Auto) 25.9 [place] % (Auto) 8.4 Eos % (Auto) 3.2 Baso % (Auto) 0.6 Neut # (Auto) 7.63 Lymph # (Auto) 3.2 [place] # (Auto) 1.1 H Eos # (Auto) 0.4 Baso # (Auto) 0.1 Nucleated RBC % (auto) 0 Nucleated RBCs # 0.0 Sodium 131 L Potassium 5.8 H Chloride 95 L Carbon Dioxide 28 Anion Gap 13.8 BUN 16 Creatinine 0.5 GFR Calculation 137.4 H Glucose 148 H Calculated Osmolality 276 L Calcium 8.9 Sqosq-9-Sdzbcrychzx 186 06/20/20 06/20/20 01:51 01:51 WBC 13.3 H RBC 4.44 Hgb 13.6 Hct 40.9 MCV 92.1 MCH 30.6 MCHC 33.3 RDW 12.6 Plt Count 514 H MPV 9.1 Neut % (Auto) 54.4 Lymph % (Auto) 30.7 [place] % (Auto) 10.2 Eos % (Auto) 3.5 Baso % (Auto) 0.5 Neut # (Auto) 7.21 Lymph # (Auto) 4.1 [place] # (Auto) 1.4 H Eos # (Auto) 0.5 Baso # (Auto) 0.1 Nucleated RBC % (auto) 0 Nucleated RBCs # 0.0 Sodium 136 Potassium 3.9 Chloride 100 Carbon Dioxide 28 Anion Gap 11.9 BUN 16 Creatinine 0.5 GFR Calculation 137.4 H Glucose 104 Calculated Osmolality 283 L Calcium 9.0 Ibacf-4-Pbszfhadpoy Micro: Microbiology 06/17/20 11:40 Gram Stain - Final Sputum - Expectorated Sputum Sputum Culture - Final Cardiac Studies: No Data to Display
[2020-06-20 11:07] LABS: Basophils # 0.1 10^3/uL (0.0-0.1); Basophils % 0.6 %; Eosinophils # 0.5 10^3/uL (0.0-0.8); Eosinophils % 3.8 %; Hematocrit 41.2 % (37.0-47.0); Hemoglobin 13.6 g/dL (11.5-15.3); Lymphocytes # 3.1 10^3/uL (0.8-4.8); Lymphocytes % 24.2 %; Mean Corpuscular Hemoglobin 30.4 pg (28.0-34.0); Mean Platelet Volume 9.1 fL (7.4-10.4); Monocytes # 1.2 10^3/uL (0.2-0.9); Monocytes % 9.5 %; Neutrophils # 7.96 10^3/uL (1.8-7.7); Neutrophils % 61.4 %; Nucleated Red Blood Cells % 0 %; Platelet Count 517 10^3/cmm (130-400); Red Blood Count 4.48 10^6/uL (4.1-5.3); Red Cell Distribution Width 12.8 % (12.1-15.1)
[2020-06-20 11:11] VITALS: BP 113/67; PULSE 78; RESP 17; TEMP 36.9; O2SAT 96
[2020-06-20 11:23] LABS: INR 0.97 (0.8-1.2)
[2020-06-20 11:34] LABS: Anion Gap 12.2 (5-19); Blood Urea Nitrogen 17 mg/dL (6-20); Calcium 8.9 mg/dL (8.5-10.5); Carbon Dioxide 27 mmol/L (22-29); Chloride 100 mmol/L (98-107); Glomerular Filtration Rate 137.4 mL/min (90-130); Glucose 98 mg/dL (65-115); Osmolality Calculated 282 mOsm/kg (285-295); Potassium 4.2 mmol/L (3.5-5.1); Sodium 135 mmol/L (136-145)
--- NOTE | 2020-06-20 13:06 | PM.MISC ---
Miscellaneous Note Note: I have spoken with Ms. Snell and her mother at bedside. I reviewed our tentative plans for right thoracotomy with closure of air leak tomorrow. Several questions were answered. Results of recent CT scan reviewed. I have spoken with our speech therapy department. They are making preparations for formal swallowing evaluation, as it appears that her swallowing has significantly improved over the past 24 hours. I greatly appreciate the oversight and recommendations of Dr. Bland from our hospitalist service and they continued evaluations and recommendations from Dr. Duran. I will plan to remove her BRENNON drain this afternoon after allowing for an adequate period of time since heparin has been discontinued.
[2020-06-20 15:22] VITALS: BP 111/79; PULSE 79; RESP 18; TEMP 37; O2SAT 97
[2020-06-20] MEDS: alum-mag-hydroxide-sime 30 mL UDC PO (15:36)
--- NOTE | 2020-06-20 18:25 | PC.NURSE ---
SHIFT SUMMARY PATIENT HAS DONE WELL TODAY. UP IN THE CHAIR FOR MEALS AND AMBULATING AROUND THE ROOM. LUNG SOUNDS CLEAR. PATIENT ON ROOM AIR. MINIMAL PAIN. GOOD URINE OUTPUT. PATIENT HAD 2 BM'S TODAY. CONSENT SIGNED FOR SURGERY TOMORROW MORNING. AT BEDSIDE. NO COMPLAINTS AT THIS TIME.
[2020-06-20 18:49] VITALS: BP 108/72; PULSE 82; RESP 18; TEMP 36.6; O2SAT 95
[2020-06-20] MEDS: levofloxacin-dextrose 5 % 750 MG/150 ML PREMIX 100 MG IV (20:16)
[2020-06-20 23:45] VITALS: BP 115/78; PULSE 73; RESP 18; TEMP 36.6; O2SAT 96
[2020-06-21] VITALS (37 sets, daily range): BP systolic 97–117; BP diastolic 69–86; PULSE 71–98; RESP 10–26; TEMP 36.5–36.8; O2SAT 92–100
--- NOTE | 2020-06-21 06:45 | PM.PN ---
Subjective Subjective: Interval history: Rested reasonably well last night. No shortness of breath. Minimal discomfort at the thoracic vent site. Intermittent no persistent air leak noted. Vitals/I&O/Wt Last Vital Signs Temp 97.9 F 06/21/20 04:00 Pulse 80 06/21/20 04:00 Resp 18 06/21/20 04:00 BP 105/69 06/21/20 04:00 Pulse Ox 92 06/21/20 04:00 06/20/20 06/20/20 06/21/20 14:59 22:59 06:59 Intake Total 600 / 600 386 / 986 Output Total 500 / 500 402 / 902 Balance 100 / 100 -402 / -302 386 / 84 Physical Exam Chest: COMMONS NORMALS: normal inspection of the chest (Thoracic vent in position. No subcutaneous emphysema.) Urinary Catheter Management^: Pelayo: Cath Placed During This Visit: yes, but has since been removed by the nurse Reason for Continuing Indwelling Catheter: Accurate Measurement of Urinary Output in Critically Ill Patients Urinary Catheter Date of Insertion: 06/08/20 Urinary Catheter Time of Insertion: 01:34 Date Urinary Catheter Removed: 06/10/20 Time Urinary Catheter Discontinued: 20:54 Data : 06/20/20 10:50 06/20/20 10:50 A&P Assessment and plan (1) Bronchopleural fistula: Plan to proceed with right thoracotomy and with indication and hand oversewing of air leak. Rationale has been carefully discussed with Ms. Snell and family. They are in agreement. We will plan for thoracic epidural catheter preoperatively and ICU monitoring postop. Status: Acute Attestations Medical Necessity Statement*: Continued air leak status post bleb resection and pleurodesis Time Spent in Patient Care: less than 15 minutes Coding Level of Care Code Acute Casket Assembler for Chg Fwd Diagnoses Bronchopleural fistula J86.0
[2020-06-21] MEDS: sodium chloride 0.9% 1,000 ML 30 ML IV (07:40)
--- NOTE | 2020-06-21 07:40 | PC.NURSE ---
Thoracic epidural by Dr Rizo. Consent obtained, time out performed, and pre meds given. 2mg versed and 100 fentanyl. Pt on telemetry. Pt tolerated well. VSS. back at bedside. Dressing C/D/I. Denies needs at this time.
[2020-06-21] MEDS: midazolam 1 mg/mL INJ 2 mL 2 MG IVP (07:48)
[2020-06-21] MEDS: fentaNYL 50 mcg/mL INJ 2mL 100 MCG IVP (07:49)
--- NOTE | 2020-06-21 08:05 | ANES.PROC ---
Anesthesia Procedures Procedure/Date: 06/21/20 Epidural: Time Out Performed: Yes Consents Signed: Procedure Consent Consent: requested by attending/covering physician, from patient, risks and benefits reviewed and patient agrees to proceed Thoracic Level: T9-T10 Epidural position: sitting Epidural procedure: sterile prep of area, 1% lidocaine to numb the area, 18 g needle, negative for paresthesia passed, neg for paresthesia, test dose given (3 cc), 1.5% xylocaine 1:200k epi (3 cc), no systemic response, sterile dressing applied and L.U.D. no apparent complications Additional Comments: KIMBERLY at 4 cm threaded to 10 cm
[2020-06-21] MEDS: vancomycin 750 MG in sodium chloride 0.9% 250 ML 250 MG IV ×2 (08:45→21:16)
[2020-06-21] MEDS: vancomycin 1,000 MG SDV 2000 MG IRRIGATION (09:55)
[2020-06-21] MEDS: vancomycin 1,000 MG SDV 1000 MG IRRIGATION (10:21)
--- NOTE | 2020-06-21 12:28 | XR_ITS ---
WS: [id number] Portable AP upright chest, 06/21/2020 Clinical Data: post op thoracotomy Comparison: Portable chest, 06/20/2020 Findings: There is a large right chest tube which curls in the right apex. There is a right apical p neumothorax of moderate percent with a small 10-15% right lateral pneumothorax. There is right chest wall subcutaneous emphysema. The double lumen endotracheal tube enters the left mainstem bronchus. Th e left lung is fully inflated. The heart is normal. There are monitor leads on the chest wall. XR/XR chest 1V portable [id number] Impression: 1. Complete right apical pneumothorax with insertion of large bore right chest tube ending in the right apex. 2. Small right lateral pneumothorax. 3. Endotracheal tube ends in the left mainstem bronchus. 4. Right lateral subcutaneous emphysema.
--- NOTE | 2020-06-21 14:04 | PM.PN ---
Subjective Subjective: Interval history: I am evaluating Sylvia directly following her surgery. I discussed her case briefly with the surgeon. She has just underwent a thoracotomy and bronchoscopy, with biopsy, and measures to reduce air leak. Medications: Reviewed: Yes Vitals/I&O/Wt Last Vital Signs Temp 98.2 F 06/21/20 08:05 Pulse 90 06/21/20 08:05 Resp 16 06/21/20 08:05 BP 104/73 06/21/20 08:05 Pulse Ox 96 06/21/20 08:05 06/20/20 06/21/20 06/21/20 22:59 06:59 14:59 Intake Total 386 / 986 350 / 350 Output Total 402 / 902 Balance -402 / -302 386 / 84 350 / 350 Physical Exam Narrative: EXAM NARRATIVE: Exam is sleepy, extubated on facemask Neck supple no lymphadenopathy Cardiovascular regular rate and rhythm without murmur Chest tube noted Lungs clear. Some crepitance right chest Pelayo noted Abdomen is soft with positive bowel sounds Extremities no cyanosis clubbing or edema Urinary Catheter Management^: Pelayo: Cath Placed During This Visit: yes, but has since been removed by the nurse Reason for Continuing Indwelling Catheter: Accurate Measurement of Urinary Output in Critically Ill Patients Urinary Catheter Date of Insertion: 06/21/20 Urinary Catheter Time of Insertion: 09:30 Date Urinary Catheter Removed: 06/10/20 Time Urinary Catheter Discontinued: 20:54 Data : 06/20/20 10:50 06/20/20 10:50 A&P Assessment and plan (1) Spontaneous pneumothorax: S/p Right thoracoscopy with apical bleb resection/mechanical and chemical pleurodesis June 13 S/P thoravent 2/3 Directly postoperative right thoracotomy, with further surgical measures to reduce air leak as well as bronchoscopy with biopsy. Full surgical report pending. Appreciate cardiothoracic surgery evaluation and management. Pulmonary consult obtained and appreciated. Only with chest tube, not to suction. Status: Acute (2) Leukocytosis: Improved Continue Levaquin Sputum culture normal munir to date Status: Acute (3) Nicotine dependence: Counseled to quit Continue nicotine patch Status: Acute (4) Breast mass: Dense bilateral breast tissue with well-circumscribed 2.2 x 1.5 cm ovoid lesion upper outer right breast Incidental noted on CT chest Will need outpatient work-up Status: Acute Additional A&P Information Full code SCDs currently for DVT prophylaxis. Attestations Medical Necessity Statement*: Needs continued hospital stay for follow-up of pneumothorax with persistent air leak. Coding Level of Care Code Acute Weights And Measures Inspector for Chg 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
--- NOTE | 2020-06-21 14:05 | PM.OP ---
Operative Report Date of procedure: June 21, 2020 Pre-op Diagnosis: Incidental identification of endobronchial lesion in the right upper lobe Post-op diagnosis: same Brief History: This is a 40-year-old lady with significant history of smoking and marijuana use who presented to the hospital with secondary spontaneous pneumothorax. The patient underwent tube thoracostomy with persistent air leak. Following that, she underwent thoracoscopy and resection of the right upper lobe bulla however she continued to have bronchopleural fistula and air leak. The patient came to the OR today for thoracotomy and further surgical intervention for fixing the air leak. Dr. Boyce had performed the surgery. Post surgery chest x-ray revealed persistent pneumothorax although, there was no evidence of air leak on positive pressure ventilation. At that point, a bronchoscopy was done to make sure there is no endobronchial obstruction or mucous plug leading to collapse of the right upper lobe. A right upper lobe endobronchial lesion was identified during bronchoscopy and I was asked by Dr. Boyce to take a look. Procedure: Name of the procedure: Bronchoscopy with inspection of the airway, endobronchial biopsy and control of bleeding. Indication: Right upper lobe endobronchial lesion. Anesthesia: General anesthesia. Description of the procedure: The bronchoscope was advanced through the endotracheal tube. Minimal amount of blood was noted in the endotracheal tube in the upper trachea. The bronchoscope was advanced in the left mainstem bronchus. The left upper lobe, lingula and lower lobe bronchi were examined up to the third subsegmental level. No endobronchial lesion, mucous plug were identified. There was small amount of blood. The bronchoscope was then introduced into the right mainstem bronchus. The right upper lobe bronchus had 2 initial segments, anterior and apical posterior. Upon entering the apicoposterior segment the apical segmental bronchus was partially obstructed by an endoluminal pedunculated lesion. I was able to go past the endobronchial lesion with the bronchoscope. No mucous plugging was noted. The right middle lobe and lower lobe bronchi were examined up to the third subsegmental level and there is no endobronchial lesion or mucous plug. Consent was obtained from the patient's family to further investigate this unexpected finding. Endobronchial biopsies were obtained from this endobronchial lesion. Multiple samples were obtained and put in formalin. There was no significant bleeding post procedure. Prebiopsy, the lesion was treated with diluted epinephrine. Sample: 1. The sample will be sent for histopathology. Complications: There is no immediate complications.
--- NOTE | 2020-06-21 14:12 | ANE.PACU2 ---
Inpatient post-anesthesia follow up: Airway intact: Yes Vital signs: Temperature 98.2 F Pulse Rate [Left R adial] 116 Pulse Rate 90 Respiratory Rate 16 Blood Pressure [Le ft Arm] 132/89 Blood Pressure 104/73 Pulse Oximetry 96 Oxygen Delivery Me thod [ Room Air Current Rate & Del ban] Oxygen Delivery Me thod Room Air Oxygen Flow Rate 4 Fraction of Inspir ed Oxygen Hydration adequate: Yes Nausea and vomiting: No Pain level: 3 Mental status: Baseline
[2020-06-21] MEDS: lactated ringers 1,000 ML 100 ML IV (14:45)
--- NOTE | 2020-06-21 15:25 | PC.RESP ---
PT. BACK FROM SURG. STILL SED.
--- NOTE | 2020-06-21 16:18 | P.OP_ITS ---
Operative Report Date of procedure: June 21, 2020 Pre-op Diagnosis: Distant air leak and pneumothorax status post bleb resection and pleurodesi Post-op diagnosis: same Post-op Findings: Generalized bullous disease of the right upper lobe Endobronchial lesion apical segment right upper lobe Procedure Done: 1. Muscle-sparing right thoracotomy with buttressed stapled and glue reinforced resection of bullous disease right upper lobe #2. Diagnostic flexible bronchoscopy Specimens removed/disposition: Bullous disease right upper lobe 2 specimens Endobronchial biopsies by Dr. Orr of apical segment endobronchial lesion right upper lobe Surgeon: Kelvin Boyce Anesthesia: General Estimated blood loss (mL): 100 Findings: Generalized bullous disease right upper lobe, particularly laterally. Staple line from original thoracoscopy and bleb resection of June 13 was intact Condition: stable Disposition: ICU Brief History: Ms. Snell is a 40-year-old female admitted following an emergency room visit of June 07 with a spontaneous right pneumothorax. She was initially treated with thoracostomy tube but had persistent air leak. Following my consultation of June 12, on June 13 she underwent right thoracoscopy with bleb resection followed by chemical mechanical pleurodesis. Though there was improvement, there was still a persistent air leak. Consultation was made with our pulmonary colleagues, Dr. Orr and Dr. Cook. Operative resection of what was felt to possibly be a bronchopleural fistula was recommended. She was returned therefore to the operating room today for planned reexploration and resection and other procedures as needed. Procedure: Ms. Snell was taken to the operating room theater where initially a thoracic epidural catheter was placed by our anesthesia colleagues. She was carefully placed in the supine position and underwent general endotracheal intubation with a double-lumen tracheal tube with was placed with fiberoptic guidance. Appropriate invasive lines were placed and then she was carefully positioned in the left lateral cubitus position over axillary roll with protective padding. Her entire right chest was sterilely prepped and draped. Previous anterior thoracic vent placement was left in position at this time. A muscle-sparing limited right posterior lateral thoracotomy incision was made and carried down through subcutaneous tissues to the chest wall where the fifth intercostal space was then entered. There were some adhesions anteriorly and posteriorly laterally though much of the lung was still relatively free from the parietal pleura despite previous mechanical and chemical pleurodesis. These adhesions were carefully taken down. Next, the previously placed staple line from prior bleb resection was Inspected and was felt to be intact. Hand ventilation of the right lung while under saline did not reveal any substantial large air leaks. There was some remaining bullous disease which was not bleb- like, though was in general involving the anterior portion of the right upper lobe. There was thinning of parenchyma noted in this region and I felt this was an area where a potential leak could continue. Therefore, this area was resected utilizing a buttressed staple line reinforced with biological glue. As well, because of concerns with the old staple line though it did appear to be intact, without disruption, or significant gas leak under saline, I did elect to resect it again utilizing the buttressed staple line and biological glue. Following this, careful inspection throughout the right hemithorax failed to reveal any other areas of substantial bullous disease though there was gen eralized anthracosis consistent with a fairly long history of tobacco use. No palpable lesions or concerning adenopathy with identified. Interrogation of the right lung completely submerged in saline with positive ventilation being performed failed to reveal any air leak. Next, we performed mechanical pleurodesis utilizing Bovie scratch pad on all parietal surfaces. Chemical pleurodesis with doxycycline, D50, and talc was also performed. A single 28 Hebrew drain was placed through one of the original chest tube sites after he had been resected along its free edges. This was secured with 2-0 silk suture. The lung reinflated, there was good reexpansion with no evidence for leakage. The right inferior pulmonary ligament was also taken down up to the inferior pulmonary vein. All retractors were removed. Sponge needle count was correct. Chest wall was reapproximated with #1 Vicryl suture. Fascia closed with #1 Vicryl suture. Subcutaneous layer was closed with 2-0 Vicryl suture. Skin was reapproximated in a subcuticular manner with 3-0 Monocryl suture. Sterile dressings were applied. Ms. Snell was then returned to the supine position. With a chest tube on waterseal there was no air leak, though with active suction there did appear to be an air leak in the waterseal chamber. This was confirmed several times. Intraoperative chest x-ray reveals that there is apical pn eumothorax both with or without suction, though without suction on Pleur-evac, there was no air leak. I conferred with my colleague Dr. Orr of these findings. Next, I elected to proceed with flexible diagnostic bronchoscopy to assess for possible mucous plugging. Procedure: With adequate anesthesia maintained after replacement of the double-lumen tube with a single-lumen tube, flexible bronchoscope was inserted through the endotracheal tube. In a methodical fashion the trachea, maricarmen, right main bronchus and associated lobar bronchi were inspected. In a similar fashion the left side was inspected. Secretions were cleared as needed to allow for adequate inspection. Findings: Main maricarmen and secondary maricarmen were sharp. Branching anatomy was normal. There was no evidence for submucosal infiltration or extrinsic compression. Mucosa was not friable. Left side revealed no irregularities. On the right side, middle lobe and lower lobe orifice ease and secondary bronchi appeared unremarkable. There was some blood, in the right upper lobe bronchi, consistent with the recent surgery and parenchymal transections with a stapling device. Of note, however, was a smooth what appeared to be submucosal lesion, slightly pedunculated, in the posterior segment bronchus of the right upper lobe. Intraoperative photos were taken. I conferred again with my colleague Dr. Orr who was gracious enough to enter the OR suite and confirm these findings. After discussion, we felt that biopsy was indicated. Therefore, I left the OR suite to speak with Ms. Snell's about our endoscopic findings and for approval to proceed with biopsy as this was an unexpected finding. He seemed to have full understanding of our operative findings and our recommendation and did give verbal consent to proceed with biopsy. Endobronchial biopsy was then performed by Dr. Orr and will be dictated separately by him. Specimens were collected for pathologic analysis. There was only minimal blee ding with these biopsies. Once completed, the scope was withdrawn under direct visualization confirming cleared secretions and no substantial bleeding. Endoscopic photos were taken as required to document pathology. Next Ms. Snell was awakened from general endotracheal anesthesia and extubated without difficulty. She was transferred to the ICU bed and then to the ICU in stable condition. I did camp counselor with her at the completion of the procedure. It is of note, that with the Pleur-evac on waterseal there is no air leak. We will continue this through the night and plan for follow-up chest x- ray in the morning. Dr. Orr has been gracious enough to assist with continued follow-up.
[2020-06-21] MEDS: morphine 4 mg/mL SDV 1 mL 2 MG IVP (16:48)
[2020-06-21] MEDS: levofloxacin-dextrose 5 % 750 MG/150 ML PREMIX 100 MG IV (19:35)
--- NOTE | 2020-06-21 20:23 | PC.NURSE ---
Right Radial art line removed at this time. Catheter intact, pressure held until homostasis achieved. Dressed with dry sterile dressing. Site asymptomatic. Pt tolerated well.
[2020-06-21] MEDS: ketorolac 30 mg/mL INJ IVP (21:47)
[2020-06-21] MEDS: lanolin oint 7 gm 1 APPLIC TOPICAL (22:16)
[2020-06-22] VITALS (25 sets, daily range): BP systolic 87–140; BP diastolic 55–87; PULSE 66–106; RESP 15–30; TEMP 36.1–36.7; O2SAT 97–100
[2020-06-22] MEDS: lactated ringers 1,000 ML 100 ML IV ×3 (02:46→22:44)
[2020-06-22 04:24] LABS: Basophils # 0.1 10^3/uL (0.0-0.1); Basophils % 0.4 %; Eosinophils # 0.3 10^3/uL (0.0-0.8); Eosinophils % 1.3 %; Hematocrit 39.4 % (37.0-47.0); Hemoglobin 12.9 g/dL (11.5-15.3); Lymphocytes % 20.3 %; Mean Corpuscular HGB Conc 32.7 g/dL (30.0-36.0); Mean Corpuscular Hemoglobin 30.6 pg (28.0-34.0); Mean Corpuscular Volume 93.6 fL (81-99); Mean Platelet Volume 8.9 fL (7.4-10.4); Monocytes # 1.9 10^3/uL (0.2-0.9); Monocytes % 9.5 %; Neutrophils % 67.9 %; Nucleated Red Blood Cells % 0 %; Platelet Count 526 10^3/cmm (130-400); Red Blood Count 4.21 10^6/uL (4.1-5.3); Red Cell Distribution Width 12.7 % (12.1-15.1); White Blood Count 19.7 10^3/uL (4.0-10.0)
[2020-06-22] MEDS: morphine 4 mg/mL SDV 1 mL 2 MG IVP ×5 (04:30→23:17)
[2020-06-22 04:58] LABS: Anion Gap 13.2 (5-19); Blood Urea Nitrogen 11 mg/dL (6-20); Calcium 7.9 mg/dL (8.5-10.5); Carbon Dioxide 25 mmol/L (22-29); Chloride 103 mmol/L (98-107); Glomerular Filtration Rate 137.4 mL/min (90-130); Glucose 79 mg/dL (65-115); Osmolality Calculated 282 mOsm/kg (285-295); Potassium 4.2 mmol/L (3.5-5.1); Sodium 137 mmol/L (136-145)
[2020-06-22] MEDS: ketorolac 30 mg/mL INJ IVP ×2 (05:59→15:57)
--- NOTE | 2020-06-22 06:00 | XR_ITS ---
WS: [id number] Portable AP upright chest, 06/22/2020 Clinical Data: s/p thoracotomy and lung resection Comparison: Portable chest, yesterday. Findings: The endotracheal tube has been removed. The large right chest tube remains curled in the [place] perior aspect of the right pleural space. There is still a right apical pneumothorax. The right basil ar pneumothorax has resolved. The subcutaneous emphysema along the right chest wall has diminished. XR/XR chest 1V portable [id number] Impression: 1. Removal of endotracheal tube. 2. No change in right apical pneumothorax and placement of superior right chest tube. 3. Resolution of small right basilar pneumothorax in the decrease in right subc utaneous emphysema.
--- NOTE | 2020-06-22 06:37 | P.PN_ITS ---
Subjective Subjective: Interval history: Postop day #1 status post right thoracotomy with right upper lobe apical resection with buttressed closure and pleurodesis. Status post bronchoscopy with biopsy of right upper lobe bronchial lesion Chest x-ray this morning is similar to the immediate postop x-ray and that there is not full reexpansion of the right lung with continued apical pneumothorax, though without air leak on waterseal. This has been discussed with Dr. Orr and appears to represent patient dependent pneumothorax. Ms. Snell reportedly slept reasonably well last night though was having some discomfort this morning. I have personally reviewed the chest x-ray. Vitals/I&O/Wt Last Vital Signs Temp 98.2 F 06/21/20 15:00 Pulse 90 06/22/20 05:54 Resp 22 H 06/22/20 04:30 BP 104/76 06/22/20 04:00 Pulse Ox 100 06/22/20 04:30 06/21/20 06/21/20 06/22/20 14:59 22:59 06:59 Intake Total 1850 / 1850 400 / 2250 1820 / 4070 Output Total 200 / 200 876 / 1076 1314 / 2390 Balance 1650 / 1650 -476 / 1174 506 / 1680 Physical Exam Chest: COMMONS NORMALS: normal inspection of the chest (Surgical dressings are dry. Chest tube in good position) OTHER: There is appropriate tiding with respiration in the[place] though no air leak on waterseal. Urinary Catheter Management^: Pelayo: Cath Placed During This Visit: yes, but has since been removed by the nurse Reason for Continuing Indwelling Catheter: Accurate Measurement of Urinary Output in Critically Ill Patients Urinary Catheter Date of Insertion: 06/21/20 Urinary Catheter Time of Insertion: 09:30 Date Urinary Catheter Removed: 06/10/20 Time Urinary Catheter Discontinued: 20:54 Data : 06/22/20 04:03 06/22/20 04:03 A&P Assessment and plan (1) Secondary spontaneous pneumothorax: Postop day #1 status post apical right upper lobe lung resection with butt ressed closure with chemical and mechanical pleurodesis and bronchoscopy Plan: Continue pulmonary toilet and postop recovery with plan chest x-ray in the morning Status: Acute Attestations Medical Necessity Statement*: Status post resection status post pneumothorax Time Spent in Patient Care: 16 - 35 minutes Coding Level of Care Code Acute 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
--- NOTE | 2020-06-22 07:59 | ANE.PACU2 ---
Inpatient post-anesthesia follow up: Airway intact: Yes Vital signs: Temperature 98.2 F Pulse Rate [Left R adial] 116 Pulse Rate 90 Respiratory Rate 22 Blood Pressure [Le ft Arm] 132/89 Blood Pressure 104/76 Pulse Oximetry 100 Oxygen Delivery Me thod [ Nasal Cannula Current Rate & Del ban] Oxygen Delivery Me thod Nasal Cannula Oxygen Flow Rate [ Current Rate 3 & Delivery] Oxygen Flow Rate 3 Fraction of Inspir ed Oxygen Hydration adequate: Yes Nausea and vomiting: No Pain level: 5 Mental status: Baseline Additional Comments: Increased epidural boluses to max of 4 an hr (up from 3 an hour), epidural site clean, dry and intact. No signs of infection
[2020-06-22] MEDS: sennosides-docusate Tablet 1 TAB PO (08:52)
[2020-06-22] MEDS: vancomycin 750 MG in sodium chloride 0.9% 250 ML 250 MG IV ×2 (08:52→21:00)
[2020-06-22] MEDS: pantoprazole DR 40 mg Tablet PO (08:52)
[2020-06-22] MEDS: HYDROcodone-acetaminophen 5-325 mg Tablet 1 TAB PO ×3 (08:54→20:59)
--- NOTE | 2020-06-22 12:36 | P.PN_ITS ---
Subjective Subjective: Interval history: Sylvia ports she is in some pain but it is being controlled as best it can be. Denies being short of breath on the oxygen. Has an occasional cough. Medications: Reviewed: Yes Vitals/I&O/Wt Last Vital Signs Temp 97.0 F L 06/22/20 07:00 Pulse 93 06/22/20 09:34 Resp 20 H 06/22/20 09:28 BP 122/70 06/22/20 08:00 Pulse Ox 98 06/22/20 09:34 06/21/20 06/22/20 06/22/20 22:59 06:59 14:59 Intake Total 400 / 2250 1820 / 4070 400 / 400 Output Total 876 / 1076 1314 / 2390 Balance -476 / 1174 506 / 1680 400 / 400 Physical Exam Narrative: EXAM NARRATIVE: Exam no apparent distress Neck supple no lymphadenopathy Cardiovascular regular rate and rhythm without murmur Chest tube noted Lungs clear. Pelayo noted Abdomen is soft with positive bowel sounds Extremities no cyanosis clubbing or edema Urinary Catheter Management^: Pelayo: Cath Placed During This Visit: yes, but has since been removed by the nurse Reason for Continuing Indwelling Catheter: Accurate Measurement of Urinary Output in Critically Ill Patients Urinary Catheter Date of Insertion: 06/21/20 Urinary Catheter Time of Insertion: 09:30 Date Urinary Catheter Removed: 06/10/20 Time Urinary Catheter Discontinued: 20:54 Data : 06/22/20 04:03 06/22/20 04:03 A&P Assessment and plan (1) Spontaneous pneumothorax: S/p Right thoracoscopy with apical bleb resection/mechanical and chemical pleurodesis June 13 S/P thoravent 2/3 Postoperative day #1 right thoracotomy, with buttress stapled and glue reinforced resection of bullous disease right upper lobe and flexible bronchoscopy with endobronchial biopsies Appreciate cardiothoracic surgery evaluation and management. Pulmonary consult obtained and appreciated. Only with chest tube, not to suction. Chest x-ray shows persistent pneumothorax and lung has not reexpanded. This is suspected to be a pressure dependent air leak Status: Acute (2) Leukocytosis: Worsened, secondary to stress of surgery/procedure Continue Levaquin Sputum culture normal munir to date Vancomycin was added yesterday following procedure by surgeon. Status: Acute (3) Nicotine dependence: Counseled to quit Continue nicotine patch Status: Acute (4) Breast mass: Dense bilateral breast tissue with well-circumscribed 2.2 x 1.5 cm ovoid lesion upper outer right breast Incidental noted on CT chest Will need outpatient work-up Status: Acute Additional A&P Information Full code SCDs currently for DVT prophylaxis. 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
--- NOTE | 2020-06-22 12:52 | PM.PN ---
Subjective Subjective: Interval history: Patient was seen and examined this morning. She is comfortably resting in bed having breakfast. Complaining of mild chest pain. Chest x-ray obtained this morning revealed persistent right-sided apical pneumothorax similar to pneumothorax that was seen yesterday postoperatively. The chest tube was under waterseal without any is applied suction overnight. The patient underwent right thoracotomy with right upper lobe apical resection with buttressed closure and chemical and mechanical pleurodesis. During bronchoscopic evaluation the patient was found to have right upper lobe apical segment endobronchial lesion that was biopsied. No significant air leak noted even with coughing. Medications: Reviewed: Yes Vitals/I&O/Wt Last Vital Signs Temp 97.0 F L 06/22/20 07:00 Pulse 93 06/22/20 09:34 Resp 20 H 06/22/20 09:28 BP 122/70 06/22/20 08:00 Pulse Ox 98 06/22/20 09:34 06/21/20 06/22/20 06/22/20 22:59 06:59 14:59 Intake Total 400 / 2250 1820 / 4070 400 / 400 Output Total 876 / 1076 1314 / 2390 Balance -476 / 1174 506 / 1680 400 / 400 Physical Exam Narrative: EXAM NARRATIVE: General: Patient is awake alert and oriented, in no apparent distress. Right chest tube in place. Neck: No JVD, no cervical or supraclavicular lymphadenopathy. Respiratory: Inspection: Barrel-shaped chest, chest tube in the right chest, surgical dressing in place Palpation: Trachea is midline Percussion: Hypertympanic percussion note in the right anterior apical chest Auscultation: Reduced breath sound bilaterally, the breath sound is diminished in the right apical area compared to the left, no wheezing or rhonchi Cardiovascular: Regular rate and rhythm, S1-S2 present, no murmur, distant heart sound, no peripheral edema. Abdomen: Soft, nontender, nondistended, positive bowel sound Musculoskeletal: No obvious joint deformity Skin: No rash Neuro: Mental status is normal, no gross cranial nerve deficit, normal motor and coordination. Urinary Catheter Management^: Pelayo: Cath Placed During This Visit: yes, but has since been removed by the nurse Reason for Continuing Indwelling Catheter: Accurate Measurement of Urinary Output in Critically Ill Patients Urinary Catheter Date of Insertion: 06/21/20 Urinary Catheter Time of Insertion: 09:30 Date Urinary Catheter Removed: 06/10/20 Time Urinary Catheter Discontinued: 20:54 Data : 06/22/20 04:03 06/22/20 04:03 Attestation for Other Data: I personally reviewed and interpreted the following: Other data: I have reviewed the patient laboratory, microbiologic and radiologic data. The patient has persistent right apical pneumothorax. The basilar pneumothorax has resolved on the chest x-ray this morning. Mild leukocytosis and thrombocytosis. A&P Assessment and plan (1) Secondary spontaneous pneumothorax: The patient is suffering from secondary spontaneous pneumothorax. She has significant emphysematous lung disease from long-term smoking nicotine products and marijuana. The patient underwent right-sided thoracotomy with apical resection of the right upper lobe and buttressing suture. At this time, there is no significant air leak even with generation of positive intrathoracic pressure with coughing. Interestingly, the right apical pneumothorax has remained stable almost over the past 24 hours without any suction. There is no evidence of worsening pneumothorax. This presentation, is likely consistent with pressure dependent pneumothorax. At the same time, there may be a component of lung entrapment due to the right upper lobe apical segment endobronchial lesion which could be causing reduced air entry into the right upper lobe causing a trapped lung physiology. If there is no worsening of the pneumothorax, we will be able to remove the chest tube and move forward. It is likely, that the empty pleural space will be occupied by pleural fluid in the future. Status: Acute (2) Lesion of lung: During bronchoscopy in the OR the patient was found to have a right upper lobe apical segment endobronchial lesion that was biopsied without any complications yesterday. We will follow up on the final histopathology result. Status: Acute (3) Emphysema of lung: The patient most likely has advanced COPD and will need further evaluation once she is out of the hospital. I plan to follow-up with her in [facility] which will be close to her house. 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
--- NOTE | 2020-06-22 19:10 | PC.NURSE ---
[address] Orr. Discussed CXR results, biopsy results will be in within a few days. Patient will need to follow up with him out patient. [address] Boyce to report chest tube dressing draining. Reinforced dressing twice this shift. Orders to take down surgical dressing and redress.
[2020-06-22] MEDS: levofloxacin-dextrose 5 % 750 MG/150 ML PREMIX 100 MG IV (20:12)
[2020-06-23] VITALS (19 sets, daily range): BP systolic 101–144; BP diastolic 69–92; PULSE 75–107; RESP 14–29; TEMP 36.8–36.9; O2SAT 92–100
--- NOTE | 2020-06-23 00:54 | PC.NURSE ---
ROPIVACAINE WASTE Wasted 20 mL with Kandis Ellington RN.
[2020-06-23] MEDS: morphine 4 mg/mL SDV 1 mL 2 MG IVP ×2 (00:57→03:07)
[2020-06-23] MEDS: HYDROcodone-acetaminophen 5-325 mg Tablet 1 TAB PO ×4 (02:21→23:31)
[2020-06-23 03:37] LABS: Basophils # 0.1 10^3/uL (0.0-0.1); Basophils % 0.5 %; Eosinophils # 0.5 10^3/uL (0.0-0.8); Hematocrit 35.8 % (37.0-47.0); Hemoglobin 11.5 g/dL (11.5-15.3); Lymphocytes # 2.6 10^3/uL (0.8-4.8); Lymphocytes % 16.3 %; Mean Corpuscular HGB Conc 32.1 g/dL (30.0-36.0); Mean Corpuscular Hemoglobin 30.4 pg (28.0-34.0); Mean Corpuscular Volume 94.7 fL (81-99); Mean Platelet Volume 8.9 fL (7.4-10.4); Monocytes # 1.4 10^3/uL (0.2-0.9); Monocytes % 9.2 %; Neutrophils # 10.99 10^3/uL (1.8-7.7); Neutrophils % 70.4 %; Nucleated Red Blood Cells % 0 %; Platelet Count 486 10^3/cmm (130-400); Red Blood Count 3.78 10^6/uL (4.1-5.3); Red Cell Distribution Width 12.9 % (12.1-15.1); White Blood Count 15.6 10^3/uL (4.0-10.0)
[2020-06-23 03:55] LABS: Anion Gap 10.2 (5-19); Blood Urea Nitrogen 11 mg/dL (6-20); Carbon Dioxide 27 mmol/L (22-29); Chloride 103 mmol/L (98-107); Glomerular Filtration Rate 177.7 mL/min (90-130); Glucose 106 mg/dL (65-115); Osmolality Calculated 282 mOsm/kg (285-295); Potassium 4.2 mmol/L (3.5-5.1); Sodium 136 mmol/L (136-145)
--- NOTE | 2020-06-23 06:00 | XRR_ITS ---
PROCEDURE INFORMATION: Exam: XR Chest, 1 View Exam date and time: 06/23/2020 5:33 AM Age: 40 years old Clinical indication: Prior surgery; Patient HX: F/u S/P lung resection due to pneumothorax. ; Additional info: Postop day #2 status post right upper lobe apical resection TECHNIQUE: Imaging protocol: XR of the chest Views: 1 view. COMPARISON: CR XR chest 1V portable [id number] 06/22/2020 5:08 AM FINDINGS: Lungs: See Pleural spaces finding. Pleural spaces: Interval worsening of large right-sided pneumothorax. Right-sided chest tube remains in unchanged satisfactory position. Unchanged heterogeneous attenuation of the partially collapsed right lung. The left lung is clear. No pleural effusion. Heart/Mediastinum: Stable cardiomediastinal silhouette. No shifting of the mediastinal structures seen. Bones/joints: Unremarkable. XR/XR chest 1V portable [id number] IMPRESSION: Interval worsening of large right-sided pneumothorax, with chest tube in unchanged satisfactory position.
[2020-06-23] MEDS: pantoprazole DR 40 mg Tablet PO (08:05)
[2020-06-23] MEDS: sennosides-docusate Tablet 1 TAB PO (08:05)
[2020-06-23] MEDS: vancomycin 750 MG in sodium chloride 0.9% 250 ML 250 MG IV ×2 (08:06→21:30)
[2020-06-23] MEDS: ketorolac 30 mg/mL INJ IVP (08:06)
[2020-06-23] MEDS: lactated ringers 1,000 ML 100 ML IV ×2 (08:06→20:18)
--- NOTE | 2020-06-23 10:16 | P.PN_ITS ---
Subjective Subjective: Interval history: Postop day #2 status post buttressed stapled resection of bullous disease with pleurodesis and bronchoscopy with biopsy of apical segment right upper lobe endobronchial lesion. Tube output approximate 210 cc past 24 hours. Chest x-ray continues to reveal a space apically with the volume loss. Chest tube on waterseal there is still no air leak. Has been discussed with Dr. Orr and this appears to represent pressure dependent pneumothorax. Pathology of endobronchial lesion is still pending. Vitals/I&O/Wt Last Vital Signs Temp 98.1 F 06/22/20 11:00 Pulse 77 06/23/20 06:00 Resp 16 06/23/20 06:00 BP 107/75 06/23/20 06:00 Pulse Ox 97 06/23/20 06:00 06/22/20 06/23/20 06/23/20 22:59 06:59 14:59 Intake Total 1550 / 3800 1040 / 4840 936.667 / 936.667 Output Total 910 / 1660 1750 / 3410 Balance 640 / 2140 -710 / 1430 936.667 / 936.667 Physical Exam Chest: OTHER: Chest wall is stable. No subcutaneous emphysema. Chest tube in good position. Dressings in place and dry. Generalized erythema of her skin related to adhesive. No pruritus or epidermal bullous formation. She reports sensitive skin to numerous contact agents and adhesive Resp: OTHER: Decreased breath sounds in the upper section of the right hemithorax as expected, consistent with x-ray. Cardio: COMMON NORMALS: regular rate, regular rhythm and S1 normal heart sound present RATE: regular rate RHYTHM: regular rhythm HEART SOUNDS: S1 normal heart sound present Extremity: COMMON NORMALS: no clubbing, cyanosis or edema Urinary Catheter Management^: Pelayo: Cath Placed During This Visit: yes, but has since been removed by the nurse Reason for Continuing Indwelling Catheter: Accurate Measurement of Urinary Output in Critically Ill Patients Urinary Catheter Date of Insertion: 06/21/20 Urinary Catheter Time of Insertion: 09:30 Date Urinary Catheter Removed: 06/10/20 Time Urinary Catheter Discontinued: 20:54 Data : 06/23/20 03:26 06/23/20 03:26 A&P Assessment and plan (1) Secondary spontaneous pneumothorax: Postop day #2 status post bullous disease resection and buttressed staple closure reinforced with biological glue and pleurodesis Pressure dependent pneumothorax Plan: I have conferred with my colleague and she for pulmonary medicine Dr. Orr. As we are still pending the endobronchial biopsy report, we have elected to leave the chest tube in position while we continue with pulmonary toilet to hopefully improve aeration to the right lung. We will leave the chest tube to waterseal secondary to the pressure dependent pneumothorax. Status: Acute Attestations Medical Necessity Statement*: Status post bleb resection. 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
[2020-06-23] MEDS: LORazepam 2 mg/mL INJ 1 mL IVP ×2 (10:23→21:32)
--- NOTE | 2020-06-23 10:26 | ANE.PACU2 ---
Inpatient post-anesthesia follow up: Airway intact: Yes Vital signs: Temperature 98.1 F Pulse Rate [Left R adial] 116 Pulse Rate 77 Respiratory Rate 16 Blood Pressure [Le ft Arm] 132/89 Blood Pressure 107/75 Pulse Oximetry 97 Oxygen Delivery Me thod [ Nasal Cannula Current Rate & Del ban] Oxygen Delivery Me thod Nasal Cannula Oxygen Flow Rate [ Current Rate 3 & Delivery] Oxygen Flow Rate 2 Fraction of Inspir ed Oxygen Hydration adequate: Yes Nausea and vomiting: No Pain level: 4 Mental status: Baseline Additional Comments: Pain better controlled today, states she's not using button very much, prefers the other meds, encouraged bolus use if needed. Epidural site is clean, dry and intact. No signs of symptoms of infection at epidural site.
--- NOTE | 2020-06-23 11:24 | P.PN_ITS ---
Subjective Subjective: Interval history: This is a 40-year-old female with history of tobacco use, marijuana use who presented with right-sided chest pain.The patient was diagnosed with a spontaneous pneumothorax. The patient underwent right thoracotomy with right upper lobe apical resection with buttressed closure and chemical and mechanical pleurodesis., and had a biopsy done Morning with bedside RN. She reports pain. Plan to remove chest tube per CT surgery. She also reports some discomfort with her Pelayo. se is also feeling anxious. Cough. She denies feeling feverish. Sputum described as white. Medications: Reviewed: Yes Vitals/I&O/Wt Last Vital Signs Temp 98.4 F 06/23/20 10:00 Pulse 83 06/23/20 10:00 Resp 21 H 06/23/20 10:00 BP 139/90 06/23/20 10:00 Pulse Ox 99 06/23/20 10:00 06/22/20 06/23/20 06/23/20 22:59 06:59 14:59 Intake Total 1550 / 3800 1040 / 4840 1036.667 / 1036.667 Output Total 910 / 1660 1750 / 3410 Balance 640 / 2140 -710 / 1430 1036.667 / 1036.667 Physical Exam Const: COMMON NORMALS: patient oriented x3 OTHER: thin, anxious Eye: COMMON NORMALS: Equal, round and reactive pupils present and EOMs intact bilaterally PUPIL: Yes Equal, round and reactive pupils present Resp: COMMON NORMALS: normal respiratory effort OTHER: course sounds Cardio: COMMON NORMALS: regular rate and regular rhythm RATE: regular rate RHYTHM: regular rhythm GI: COMMON NORMALS: Soft to palpation and non-tender PALPATION: Yes Soft to palpation Extremity: COMMON NORMALS: normal to inspection and full ROM Neuro: COMMON NORMALS: patient oriented x3 Urinary Catheter Management^: Pelayo: Cath Placed During This Visit: yes, but has since been removed by the nurse Reason for Continuing Indwelling Catheter: Accurate Measurement of Urinary Output in Critically Ill Patients Urinary Catheter Date of Insertion: 06/21/20 Urinary Catheter Time of Insertion: 09:30 Date Urinary Catheter Removed: 06/10/20 Time Urinary Catheter Discontinued: 20:54 Data : 06/23/20 03:26 06/23/20 03:26 A&P Additional A&P Information (1) Spontaneous pneumothorax: S/p Right thoracoscopy with apical bleb resection/mechanical and chemical pleurodesis June 13 S/P thoravent 2/3 Postoperative day #2 right thoracotomy, with buttress stapled and glue rein forced resection of bullous disease right upper lobe and flexible bronchoscopy with endobronchial biopsies Appreciate cardiothoracic surgery evaluation and management. Pulmonary consult obtained and appreciated. 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
[2020-06-23] MEDS: levofloxacin-dextrose 5 % 750 MG/150 ML PREMIX 100 MG IV (20:18)
[2020-06-24] VITALS (20 sets, daily range): BP systolic 109–141; BP diastolic 74–92; PULSE 76–112; RESP 16–32; TEMP 36.1–36.8; O2SAT 95–100
[2020-06-24] MEDS: guaiFENesin 100 mg/5 mL UDC 10 mL 200 MG PO (02:08)
[2020-06-24 03:51] LABS: Basophils # 0.1 10^3/uL (0.0-0.1); Basophils % 0.5 %; Eosinophils # 0.6 10^3/uL (0.0-0.8); Eosinophils % 3.5 %; Hematocrit 34.7 % (37.0-47.0); Hemoglobin 11.4 g/dL (11.5-15.3); Lymphocytes % 17.7 %; Mean Corpuscular HGB Conc 32.9 g/dL (30.0-36.0); Mean Corpuscular Hemoglobin 30.6 pg (28.0-34.0); Mean Platelet Volume 9.2 fL (7.4-10.4); Monocytes # 1.3 10^3/uL (0.2-0.9); Monocytes % 7.5 %; Neutrophils # 11.75 10^3/uL (1.8-7.7); Neutrophils % 70.1 %; Nucleated Red Blood Cells % 0 %; Platelet Count 517 10^3/cmm (130-400); Red Blood Count 3.73 10^6/uL (4.1-5.3); Red Cell Distribution Width 12.9 % (12.1-15.1); White Blood Count 16.8 10^3/uL (4.0-10.0)
[2020-06-24 04:09] LABS: Anion Gap 11.8 (5-19); Blood Urea Nitrogen 8 mg/dL (6-20); Calcium 8.6 mg/dL (8.5-10.5); Carbon Dioxide 28 mmol/L (22-29); Chloride 101 mmol/L (98-107); Glomerular Filtration Rate 177.7 mL/min (90-130); Glucose 89 mg/dL (65-115); Osmolality Calculated 282 mOsm/kg (285-295); Potassium 3.8 mmol/L (3.5-5.1); Sodium 137 mmol/L (136-145)
[2020-06-24] MEDS: HYDROcodone-acetaminophen 5-325 mg Tablet 1 TAB PO ×4 (05:52→23:34)
--- NOTE | 2020-06-24 06:00 | XRR_ITS ---
PROCEDURE INFORMATION: Exam: XR Chest, 1 View Exam date and time: 06/23/2020 11:59 PM Age: 40 years old Clinical indication: Shortness of breath; Additional info: Pressure dependent pneumothorax; S/P bleb resecton: Waterseal TECHNIQUE: Imaging protocol: XR of the chest Views: 1 view. COMPARISON: CR XR chest 1V portable [id number] 06/23/2020 5:22 AM FINDINGS: Tubes, catheters and devices: Stable position of right chest tube. Lungs: No CHF/pulmonary edema. Partial interval clearing of right mid lung opacities. Pleural spaces: A moderate sized right pneumothorax is still present, but there has been significant partial re-expansion of the right lung in the interval. No evidence for mediastinal shift/tension at this time. Possibly a small amount of right pleural fluid. Heart/Mediastinum: Heart size is within normal limits. Bones/joints: No significant acute finding. XR/XR chest 1V portable [id number] IMPRESSION: 1. A moderate sized right pneumothorax is still present, but there has been significant partial re-expansion of the right lung in the interval. 2. Partial interval clearing of right mid lung opacities. 3. Other findings discussed above.
--- NOTE | 2020-06-24 08:30 | PC.NURSE ---
Breakfast offered. Pt upset that eggs have peppers in them and oatmeal on tray. Offered to get a new tray. Pt declined.
[2020-06-24 08:34] LABS: Glucose Point of Care 87 mg/dL (70-110)
[2020-06-24] MEDS: lactated ringers 1,000 ML 100 ML IV ×2 (10:17→20:10)
[2020-06-24] MEDS: pantoprazole DR 40 mg Tablet PO (10:17)
[2020-06-24] MEDS: sennosides-docusate Tablet 1 TAB PO (10:17)
--- NOTE | 2020-06-24 11:02 | PC.NURSE ---
Pt presenting with rash all over torso and minimal areas on wrists. Denies burning, itching, or any irritation. Offered pt Benadryl for rash. Refused. Pt states she believe she had a bad reaction as a child. Asked to describe reaction. Pt states it knocks her out and she think I get sick and just react badly.
--- NOTE | 2020-06-24 11:13 | P.PN_ITS ---
Subjective Subjective: Interval history: Postop day #3 status post buttress stapled repair of bullous disease right upper lobe. Chest x-ray today reveals less consolidation and improved aeration of the right lung with some decrease in the apical space. Pulmonary toilet is improving. Effective cough. Still with moderate chest wall discomfort, though modestly improved. I reviewed today's clinical findings and radiographic findings with our mold cleaner, Dr. Orr. Again, no air leak is noted with deep inspiration and cough. Pathology is pending from the endobronchial biopsy of the right upper lobe apical segment Vitals/I&O/Wt Last Vital Signs Temp 97.0 F L 06/24/20 08:00 Pulse 96 06/24/20 08:00 Resp 22 H 06/24/20 08:00 BP 127/87 06/24/20 08:00 Pulse Ox 95 06/24/20 08:00 06/23/20 06/24/20 06/24/20 22:59 06:59 14:59 Intake Total 1500 / 2886.667 1480 / 4366.667 81.5 / 81.5 Output Total 3600 / 3600 1980 / 5580 Balance -2100 / -713.333 -500 / -1213.333 81.5 / 81.5 Physical Exam Chest: COMMONS NORMALS: normal inspection of the chest and normal palpation of entire chest wall CHEST: Yes Symmetrical chest wall rise Resp: EFFORT & INSPECTION: Yes able to speak in complete sentences and Yes symmetric chest movement OTHER: Decreased breath sounds in the right apex as well as crackles in the bases on the right side. Cardio: COMMON NORMALS: regular rate, regular rhythm and S1 normal heart sound present RATE: regular rate RHYTHM: regular rhythm HEART SOUNDS: S1 normal heart sound present Skin: COMMON NORMALS: negative for no rashes or lesions noted GENERAL SKIN EXAM: rashes and/or lesions noted OTHER: Generalized erythematous exanthem over the chest wall and abdomen which appears to be related to adhesive. She does not describe any discomfort or pruritus with this. Urinary Catheter Management^: Pelayo: Cath Placed During This Visit: yes, but has since been removed by the nurse Reason for Continuing Indwelling Catheter: Accurate Measurement of Urinary Output in Critically Ill Patients Urinary Catheter Date of Insertion: 06/21/20 Urinary Catheter Time of Insertion: 09:30 Date Urinary Catheter Removed: 06/10/20 Time Urinary Catheter Discontinued: 20:54 Data : 06/24/20 03:06 06/24/20 03:06 A&P Assessment and plan (1) Lesion of lung: Postop day #3 status post buttressed staple closure of bullous disease right upper lobe with endobronchial biopsy right upper lobe bronchus lesion. Recommendation: I have conferred with Dr. Orr. He concurs with recommending keeping the chest tube until tomorrow on waterseal. Continue aggressive pulmonary toilet. Out of bed in chair. Ambulation if possible. Chest x-ray in a.m. I greatly appreciate the expertise and oversight of our hospitalist colleagues and our pulmonary medicine colleagues. 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
--- NOTE | 2020-06-24 12:15 | PC.NURSE ---
Lunch tray offered. Fruit tray, soup, bread and cottage cheese. I exclaimed that the fruit tray looked delicious. scoffed and said, Do we look like healthy people to you? Pt upset that she continues to get soups and cereals since that's why I'm here. Offered to get pt ham or turkey sandwich. Pt declined request. Encouraged pt to eat slowly and offered straws.
--- NOTE | 2020-06-24 13:26 | P.PN_ITS ---
Subjective Subjective: Interval history: This is a 40-year-old female with history of tobacco use, marijuana use who presented with right-sided chest pain.The patient was diagnosed with a spontaneous pneumothorax. The patient underwent right thoracotomy with right upper lobe apical resection with buttressed closure and chemical and mechanical pleurodesis., and had a biopsy done this AM seen with bedside RN appears less anxious want chest tube removed reports clear sputum and cough Medications: Reviewed: Yes Vitals/I&O/Wt Last Vital Signs Temp 97.0 F L 06/24/20 08:00 Pulse 96 06/24/20 08:00 Resp 22 H 06/24/20 08:00 BP 127/87 06/24/20 08:00 Pulse Ox 95 06/24/20 08:00 06/23/20 06/24/20 06/24/20 22:59 06:59 14:59 Intake Total 1500 / 2886.667 1480 / 4366.667 321.5 / 321.5 Output Total 3600 / 3600 1980 / 5580 Balance -2100 / -713.333 -500 / -1213.333 321.5 / 321.5 Physical Exam Const: COMMON NORMALS: patient oriented x3 OTHER: thin, anxious Eye: COMMON NORMALS: Equal, round and reactive pupils present and EOMs intact bilaterally PUPIL: Yes Equal, round and reactive pupils present Resp: COMMON NORMALS: normal respiratory effort OTHER: course sounds Cardio: COMMON NORMALS: regular rate and regular rhythm RATE: regular rate RHYTHM: regular rhythm GI: COMMON NORMALS: Soft to palpation and non-tender PALPATION: Yes Soft to palpation Extremity: COMMON NORMALS: normal to inspection and full ROM Neuro: COMMON NORMALS: patient oriented x3 Urinary Catheter Management^: Pelayo: Cath Placed During This Visit: yes, but has since been removed by the nurse Reason for Continuing Indwelling Catheter: Accurate Measurement of Urinary Output in Critically Ill Patients Urinary Catheter Date of Insertion: 06/21/20 Urinary Catheter Time of Insertion: 09:30 Date Urinary Catheter Removed: 06/10/20 Time Urinary Catheter Discontinued: 20:54 Data : 06/24/20 03:06 06/24/20 03:06 A&P Additional A&P Information (1) Spontaneous pneumothorax: S/p Right thoracoscopy with apical bleb resection/mechanical and chemical pleurodesis June 13 S/P thoravent 2/3 Postoperative day #3 right thoracotomy, with buttress stapled and glue reinforced resection of bullous disease right upper lobe and flexible bronchoscopy with endobronchial biopsies Appreciate cardiothoracic surgery evaluation and management. Pulmonary consult obtained and appreciated. 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
--- NOTE | 2020-06-24 14:00 | ANE.PACU2 ---
Inpatient post-anesthesia follow up: Airway intact: Yes Vital signs: Temperature 97.0 F Pulse Rate [Left R adial] 116 Pulse Rate 96 Respiratory Rate 22 Blood Pressure [Le ft Arm] 132/89 Blood Pressure 127/87 Pulse Oximetry 95 Oxygen Delivery Me thod [ Nasal Cannula Current Rate & Del ban] Oxygen Delivery Me thod Nasal Cannula Oxygen Flow Rate [ Current Rate 3 & Delivery] Oxygen Flow Rate 1 Fraction of Inspir ed Oxygen Hydration adequate: Yes Pain level: 3 Mental status: Baseline Additional Comments: Sitting up today, eating well. Stating she's not having to use button very much. Would like to leave epidural in for now. Epidural site clean, dry and intact, but has developed tenderness to palpation. No erythema, no drainage, no purulence, no fever. Of note, she has developed generalized macular rash, grossly over her back, flanks, abdomen and arms. Consider removing epidural tomorrow or next day. Continue to monitor for progression of tenderness to palpation of neuraxial site.
[2020-06-24] MEDS: levofloxacin-dextrose 5 % 750 MG/150 ML PREMIX 150 MG IV (20:09)
[2020-06-25] VITALS (21 sets, daily range): BP systolic 105–136; BP diastolic 68–96; PULSE 70–95; RESP 16–32; TEMP 36.6; O2SAT 94–100
[2020-06-25 04:46] LABS: Basophils # 0.1 10^3/uL (0.0-0.1); Basophils % 0.6 %; Eosinophils # 0.7 10^3/uL (0.0-0.8); Eosinophils % 4.4 %; Hematocrit 35.6 % (37.0-47.0); Hemoglobin 11.7 g/dL (11.5-15.3); Lymphocytes # 3.2 10^3/uL (0.8-4.8); Lymphocytes % 20.8 %; Mean Corpuscular HGB Conc 32.9 g/dL (30.0-36.0); Mean Corpuscular Hemoglobin 29.9 pg (28.0-34.0); Mean Platelet Volume 9.3 fL (7.4-10.4); Monocytes # 1.2 10^3/uL (0.2-0.9); Monocytes % 7.7 %; Neutrophils # 10.22 10^3/uL (1.8-7.7); Nucleated Red Blood Cells % 0 %; Platelet Count 602 10^3/cmm (130-400); Red Blood Count 3.91 10^6/uL (4.1-5.3); Red Cell Distribution Width 12.8 % (12.1-15.1); White Blood Count 15.5 10^3/uL (4.0-10.0)
[2020-06-25 05:19] LABS: Anion Gap 11.5 (5-19); Blood Urea Nitrogen 7 mg/dL (6-20); Calcium 8.7 mg/dL (8.5-10.5); Carbon Dioxide 28 mmol/L (22-29); Chloride 102 mmol/L (98-107); Glomerular Filtration Rate 177.7 mL/min (90-130); Glucose 109 mg/dL (65-115); Osmolality Calculated 285 mOsm/kg (285-295); Potassium 3.5 mmol/L (3.5-5.1); Sodium 138 mmol/L (136-145)
--- NOTE | 2020-06-25 06:00 | XRR_ITS ---
PROCEDURE INFORMATION: Exam: XR Chest, 1 View Exam date and time: 06/25/2020 5:39 AM Age: 40 years old Clinical indication: Condition or disease; Lung condition and disease; Other: Pressure dependent pneumothorax; Additional info: Pressure dependent pneumothorax, continuing pulmonary toilet TECHNIQUE: Imaging protocol: XR of the chest Views: 1 view. COMPARISON: CR (CHEST, ) 06/24/2020 5:33 AM FINDINGS: Tubes, catheters and devices: Postsurgical changes are present. A chest tube is present on the right side and unchanged in position. Multiple sutures are present in the right upper lobe lung. Lungs: No acute pulmonary infiltrates are seen. Pleural spaces: There is a stable moderate right pneumothorax. A small pleural effusion blunts the right costophrenic angle. Heart/Mediastinum: Unremarkable. No cardiomegaly. Bones/joints: Unremarkable. XR/XR chest 1V portable [id number] IMPRESSION: 1. Stable moderate right side pneumothorax. 2. Minimal right pleural effusion. 3. No significant change in the overall appearance of the chest.
[2020-06-25] MEDS: HYDROcodone-acetaminophen 5-325 mg Tablet 1 TAB PO ×3 (06:13→17:07)
--- NOTE | 2020-06-25 07:16 | PC.NURSE ---
Noted that pt's epidural tubing leaking around filter/tubing (not under dressing, dressing dry and intact). Called COMPOSING ROOM MACHINIST APPRENTICE. No new orders received. Plan to dc epidural today.
[2020-06-25] MEDS: sennosides-docusate Tablet 1 TAB PO (08:47)
[2020-06-25] MEDS: pantoprazole DR 40 mg Tablet PO (08:48)
--- NOTE | 2020-06-25 09:23 | PC.CHAP ---
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 curriculum assistant visit [] Patient/Family/Request visit [] Outpatient visit [] Follow-up visit [] Physician referral [] Code/Alert [x] Routine visit [] Staff referral [] Actively dying [] Patient sleeping [] Family support [] [] Out of room [] Palliative care [] [] Receiving care in room [] Pre-surgical visit [] Trauma [] Long length of stay [x] ICU visit [] Other: Relational/Emotional Strength [] Patient feels connected with others/family/visitors/staff [] Distress [] Loneliness/isolation [] Abandonment Spirituality of Patient [] Person of Rosalina [] Attends Alevism of their Rosalina [] Believes in Prayer [] Reads Bible or Confucianist materials [] There are Spiritual issues to be addressed Business Solutions Director Interventions [x] Prayer [] Active listening [] Non-anxious presence [] Spiritual/emotional support [] Crisis/trauma care [] Spiritual counseling [] Bereavement support [] Provided bereavement packet [] Provided Bible/devotional materials [] Provided toy/stuffed animal, coloring book to patient or family member [] Provided Communion [] Anointing/Wells [] Salvation [x] Completed spiritual assessment [] Other: Impact on Illness or Injury [] Angry [] Fearful [] Anxious [] Often cries [] Exhaustion [] Unable to work [] Unable to attend zoroastrian [] Unable to walk/stand [] Unable to read [] Unable to drive [] Unable to eat/drink [] Unable to sleep [] Unable to be with family [] Patient intubated [] Other: Summary Time spent with patient
--- NOTE | 2020-06-25 10:53 | P.PN_ITS ---
Subjective Subjective: Interval history: Ms. Snell appears in good spirits today. Chest x-ray is unchanged with the clearing of consolidation though still a substantial apical. Chest tube remains in good position. No air leak noted with deep inspiration or coughing. Chest tube output is continued to decrease. Dressings are clean and dry. Vitals/I&O/Wt Last Vital Signs Temp 98 F 06/24/20 23:00 Pulse 70 06/25/20 09:00 Resp 19 H 06/25/20 09:00 BP 136/80 06/25/20 09:00 Pulse Ox 100 06/25/20 09:00 06/24/20 06/25/20 06/25/20 22:59 06:59 14:59 Intake Total 1478.333 / 4470.237 1232 / 3639.833 Output Total 500 / 950 1230 / 2180 Balance 978.333 / 969.833 490 / 1459.833 Physical Exam Resp: COMMON NORMALS: normal respiratory effort, No retractions, No use of accessory muscles and percussion normal PERCUSSION: percussion normal OTHER: Still slightly decreased in the apex on the right as expected by review of chest x-ray Cardio: COMMON NORMALS: regular rate, regular rhythm and S1 normal heart sound present RATE: regular rate RHYTHM: regular rhythm HEART SOUNDS: S1 normal heart sound present Extremity: COMMON NORMALS: no clubbing, cyanosis or edema Urinary Catheter Management^: Pelayo: Cath Placed During This Visit: yes, but has since been removed by the nurse Reason for Continuing Indwelling Catheter: Decision to DC Catheter Urinary Catheter Date of Insertion: 06/21/20 Urinary Catheter Time of Insertion: 09:30 Date Urinary Catheter Removed: 06/24/20 Time Urinary Catheter Discontinued: 11:00 Data : 06/25/20 03:25 06/25/20 03:25 A&P Assessment and plan (1) Secondary spontaneous pneumothorax: Postop day #4 status post buttressed staple resection of bullous disease right upper lobe. Pressure dependent pneumothorax I have conferred with my colleague Dr. Orr from pulmonary medicine. We will place chest x-ray to clamp for the next 3 hours and then review repeat chest x-ray. If this is stable, we will plan to remove chest tube. Pathology from right upper lobe apical bronchial biopsy of right upper lobe mass is still pending. We will confer with our pathology department. Chest x-ray in a.m., if she continues to do well we will consider transferring from ICU to [facility] this evening Greatly appreciate expertise and oversight of our pulmonary colleagues and hospitalist service. Status: Acute Attestations Medical Necessity Statement*: Status post stapled buttressed closure of bullous disease right upper lobe with pressure dependent pneumothorax. Time Spent in Patient Care: 16 - 35 minutes Coding Level of Care Code Acute Sales Agent Financial Report Service for Hermes Abrams Diagnoses Secondary spontaneous pneumothorax J93.12
--- NOTE | 2020-06-25 10:59 | PC.NURSE ---
Chest tube clamped in preparation for removal in approx 3 hours.
[2020-06-25 11:00] LABS: Glucose Point of Care 97 mg/dL (70-110)
--- NOTE | 2020-06-25 13:01 | PM.PN ---
Subjective Subjective: Interval history: This morning patient was examined, she sitting up in bed, denies any shortness of breath, cough, fevers, chest pain, currently on 1 L Vitals/I&O/Wt Last Vital Signs Temp 98 F 06/24/20 23:00 Pulse 87 06/25/20 12:00 Resp 24 H 06/25/20 12:00 BP 122/87 06/25/20 12:00 Pulse Ox 100 06/25/20 12:00 06/24/20 06/25/20 06/25/20 22:59 06:59 14:59 Intake Total 1478.333 / 7556.596 1294 / 3639.833 Output Total 500 / 950 1230 / 2180 Balance 978.333 / 969.833 490 / 1459.833 Physical Exam Const: COMMON NORMALS: no acute distress and patient oriented x3 HENMT: COMMON NORMALS: normocephalic HEAD & SCALP: normocephalic Neck/C-Spine: COMMON NORMALS: no JVD Chest: OTHER: Chest tube in place, no air leak, to waterseal Resp: COMMON NORMALS: normal respiratory effort, No retractions, No use of accessory muscles and clear to auscultation bilaterally AUSCULTATION: clear to auscultation bilaterally Cardio: COMMON NORMALS: no JVD, regular rate, regular rhythm, S1 normal heart sound present and S2 normal heart sound present RATE: regular rate RHYTHM: regular rhythm HEART SOUNDS: S1 normal heart sound present and S2 normal heart sound present GI: COMMON NORMALS: Normal to inspection, nondistended, normoactive bowel sounds present, Soft to palpation, non-tender, No hepatosplenomegaly present, no masses and no bruits PALPATION: Yes Soft to palpation and Yes No hepatosplenomegaly present Extremity: COMMON NORMALS: capillary refill normal, no clubbing, cyanosis or edema, no calf tenderness and no pedal edema Neuro: COMMON NORMALS: patient oriented x3 Psych: COMMON NORMALS: mental status grossly normal Urinary Catheter Management^: Pelayo: Cath Placed During This Visit: yes, but has since been removed by the nurse Reason for Continuing Indwelling Catheter: Decision to DC Catheter Urinary Catheter Date of Insertion: 06/21/20 Urinary Catheter Time of Insertion: 09:30 Date Urinary Catheter Removed: 06/24/20 Time Urinary Catheter Discontinued: 11:00 Data : 06/25/20 03:25 06/25/20 03:25 A&P Assessment and plan (1) Spontaneous pneumothorax: Status: Acute (2) Leukocytosis: Status: Acute (3) Nicotine dependence: Counseled to quit Continue nicotine patch Status: Acute (4) Breast mass: Dense bilateral breast tissue with well-circumscribed 2.2 x 1.5 cm ovoid lesion upper outer right breast Incidental noted on CT chest Will need outpatient work-up Status: Acute Additional A&P Information (1) Spontaneous pneumothorax: S/p Right thoracoscopy with apical bleb resection/mechanical and chemical pleurodesis June 13 S/P thoravent 2/3 Postoperative day #3 right thoracotomy, with buttress stapled and glue reinforced resection of bullous disease right upper lobe and flexible bronchoscopy with endobronchial biopsies Chest tube in place, waterseal Pulmonary consult Dr. Boyce on consult Chest x-ray shows persistent apical consolidation, but improving Plan on hopefully removing chest tube today Awaiting biopsy results Can hopefully move out of the ICU later on this evening, after chest tube has been removed (2) Leukocytosis: Continue Levaquin, Vancomycin (3) Nicotine dependence: Counseled to quit Continue nicotine patch Status: Acute (4) Breast mass: Dense bilateral breast tissue with well-circumscribed 2.2 x 1.5 cm ovoid lesion upper outer right breast Incidental noted on CT chest Will need outpatient work-up Attestations Medical Necessity Statement*: Patient requires hospitalization for spontaneous pneumothorax, with chest tube in place Coding Level of Care 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
--- NOTE | 2020-06-25 14:30 | XRR_ITS ---
PROCEDURE INFORMATION: Exam: XR Chest, 1 View Exam date and time: 06/25/2020 3:16 PM Age: 40 years old Clinical indication: Device placement; Chest tube; Additional info: Chest tube clamped TECHNIQUE: Imaging protocol: XR of the chest Views: 1 view. COMPARISON: CR XR chest 1V portable [id number] 06/25/2020 5:27 AM FINDINGS: Lungs: The left lung is clear. Pleural spaces: There is a right apical pneumothorax is tip is in the superior right hemithorax. The size of the pneumothorax is not significantly changed. There is a small right pleural effusion. Heart/Mediastinum: Unremarkable. No cardiomegaly. Bones/joints: Unremarkable. XR/XR chest 1V portable [id number] IMPRESSION: No significant change in the right pneumothorax.
--- NOTE | 2020-06-25 14:36 | ANE.PACU2 ---
Inpatient post-anesthesia follow up: Airway intact: Yes Vital signs: Temperature 98 F Pulse Rate [Left R adial] 116 Pulse Rate 87 Respiratory Rate 24 Blood Pressure [Le ft Arm] 132/89 Blood Pressure 122/87 Pulse Oximetry 100 Oxygen Delivery Me thod [ Nasal Cannula Current Rate & Del ban] Oxygen Delivery Me thod Nasal Cannula Oxygen Flow Rate [ Current Rate 3 & Delivery] Oxygen Flow Rate 1 Fraction of Inspir ed Oxygen Hydration adequate: Yes Nausea and vomiting: No Pain level: 2 Mental status: Baseline Additional Comments: thoracic epidural C/D/I, chest tube clamped, will remove when chest tube out
--- NOTE | 2020-06-25 16:30 | P.PN_ITS ---
Subjective Subjective: Interval history: Chest tube was clamped around 11 AM this morning. Chest x-ray at 2:30 PM reveals no change. Vitals/I&O/Wt Last Vital Signs Temp 98 F 06/24/20 23:00 Pulse 90 06/25/20 15:34 Resp 24 H 06/25/20 12:00 BP 122/87 06/25/20 12:00 Pulse Ox 100 06/25/20 15:34 06/25/20 06/25/20 06/25/20 06:59 14:59 22:59 Intake Total 1720 / 3639.833 Output Total 1230 / 2180 Balance 490 / 1459.833 Physical Exam Chest: COMMONS NORMALS: normal inspection of the chest and normal palpation of entire chest wall OTHER: No crepitance. There is still a generalized erythematous exanthem which is nontender and without pruritus. We are assessing possible contact exposure. Antibiotics have been discontinued. Chest tube was discontinued without any difficulties. Resp: COMMON NORMALS: normal respiratory effort, No use of accessory muscles and percussion normal EFFORT & INSPECTION: Yes able to speak in complete sentences and No tachypneic PERCUSSION: percussion normal OTHER: Slight decreased breath sounds right apex Cardio: COMMON NORMALS: regular rate, regular rhythm and S1 normal heart sound present RATE: regular rate RHYTHM: regular rhythm HEART SOUNDS: S1 normal heart sound present Urinary Catheter Management^: Pelayo: Cath Placed During This Visit: yes, but has since been removed by the nurse Reason for Continuing Indwelling Catheter: Decision to DC Catheter Urinary Catheter Date of Insertion: 06/21/20 Urinary Catheter Time of Insertion: 09:30 Date Urinary Catheter Removed: 06/24/20 Time Urinary Catheter Discontinued: 11:00 Data : 06/25/20 03:25 06/25/20 03:25 A&P Assessment and plan (1) Secondary spontaneous pneumothorax: Dispose buttressed stapled closure of bullous lung disease right upper lobe. Pressure dependent right pneumothorax. No air leak. This tube discontinued. Will transfer to [facility]. Chest x-ray in a.m. I have conferred with my colleague Dr. Orr who concurs. Status: Acute Attestations Medical Necessity Statement*: Spontaneous pneumothorax status post bleb resection. Time Spent in Patient Care: 16 - 35 minutes Coding Level of Care Code Acute Acetylene Torch Solderer for g Fwd Diagnoses Secondary spontaneous pneumothorax J93.12
--- NOTE | 2020-06-25 16:35 | PC.NURSE ---
PT ON COMMODE, ATTEMPTED TO DIGITALLY REMOVE HARD STOOL FROM RECTUM. A FEW SMALL CHUNKS WERE REMOVED THEN PT WOULD YELL OUT. DR ROSS NOTIFIED & FLEETS ENEMA ORDERED.
--- NOTE | 2020-06-25 16:57 | PC.NURSE ---
AT APPROX. 1625 DR. ROSS D/C PTS CHEST TUBE. PT TOLERATED WELL. DRESSING CHANGED.
--- NOTE | 2020-06-25 17:48 | PC.NURSE ---
AT APPROX. 1745 D/C PTS EPIDURAL, PT TOLERATED WELL.
--- NOTE | 2020-06-25 17:48 | ANE.PACU2 ---
Inpatient post-anesthesia follow up: Airway intact: Yes Vital signs: Temperature 98 F Pulse Rate [Left R adial] 116 Pulse Rate 90 Respiratory Rate 24 Blood Pressure [Le ft Arm] 132/89 Blood Pressure 122/87 Pulse Oximetry 100 Oxygen Delivery Me thod [Rate & Room Air Delivery Changed T o] Oxygen Delivery Me thod [ Nasal Cannula Current Rate & Del ban] Oxygen Delivery Me thod Nasal Cannula Oxygen Flow Rate [ Current Rate 1 & Delivery] Oxygen Flow Rate 1 Fraction of Inspir ed Oxygen Hydration adequate: Yes Nausea and vomiting: No Pain level: 1 Mental status: Baseline Additional Comments: Epidural removed with tip intact.
[2020-06-25] MEDS: lactated ringers 1,000 ML 100 ML IV (18:04)
[2020-06-25] MEDS: Fleet Enema 133 mL Enema PR (19:49)
--- NOTE | 2020-06-25 20:30 | PC.NURSE ---
Patient has a large hard bowel movement after her enema. Patient stated that she had to digitally assist herself with getting all of it out but felt better when it was.
[2020-06-25] MEDS: oxyCODONE-APAP 5-325 mg Tablet 1 TAB PO (20:42)
[2020-06-25] MEDS: levofloxacin-dextrose 5 % 750 MG/150 ML PREMIX 100 MG IV (20:47)
[2020-06-26] VITALS (13 sets, daily range): BP systolic 116–137; BP diastolic 75–91; PULSE 84–101; RESP 16–20; TEMP 36.4–37.1; O2SAT 94–99
[2020-06-26] MEDS: oxyCODONE-APAP 5-325 mg Tablet 1 TAB PO ×5 (04:08→23:28)
[2020-06-26 05:36] LABS: Basophils # 0.1 10^3/uL (0.0-0.1); Basophils % 0.7 %; Eosinophils # 0.6 10^3/uL (0.0-0.8); Eosinophils % 3.8 %; Hemoglobin 11.5 g/dL (11.5-15.3); Lymphocytes # 2.6 10^3/uL (0.8-4.8); Lymphocytes % 17.4 %; Mean Corpuscular HGB Conc 32.9 g/dL (30.0-36.0); Mean Corpuscular Hemoglobin 30.1 pg (28.0-34.0); Mean Corpuscular Volume 91.6 fL (81-99); Mean Platelet Volume 9.2 fL (7.4-10.4); Monocytes # 0.9 10^3/uL (0.2-0.9); Monocytes % 6.3 %; Neutrophils # 10.68 10^3/uL (1.8-7.7); Neutrophils % 71.3 %; Nucleated Red Blood Cells % 0 %; Platelet Count 557 10^3/cmm (130-400); Red Blood Count 3.82 10^6/uL (4.1-5.3); Red Cell Distribution Width 12.7 % (12.1-15.1)
[2020-06-26 05:54] LABS: Alanine Aminotransferase 13 U/L (0-33); Albumin Level 2.9 g/dL (3.5-5.2); Alkaline Phosphatase 101 IU/L (35-105); Anion Gap 12.8 (5-19); Aspartate Amino Transferase 13 U/L (0-32); Blood Urea Nitrogen 8 mg/dL (6-20); Calcium 8.5 mg/dL (8.5-10.5); Carbon Dioxide 27 mmol/L (22-29); Chloride 102 mmol/L (98-107); Globulin 3.2 g/dL (1.3-4.6); Glomerular Filtration Rate 177.7 mL/min (90-130); Glucose 146 mg/dL (65-115); Magnesium 1.7 mg/dL (1.7-2.3); Osmolality Calculated 287 mOsm/kg (285-295); Phosphorus 3.9 mg/dL (2.5-4.5); Potassium 3.8 mmol/L (3.5-5.1); Sodium 138 mmol/L (136-145); Total Bilirubin 0.2 mg/dL (0.15-1.2); Total Protein 6.1 g/dL (6.6-8.7)
--- NOTE | 2020-06-26 06:00 | XRR_ITS ---
PROCEDURE INFORMATION: Exam: XR Chest, 1 View Exam date and time: 06/26/2020 6:39 AM Age: 40 years old Clinical indication: Device placement; Chest tube; Additional info: Chest tube discontinued on June 25 TECHNIQUE: Imaging protocol: XR of the chest Views: 1 view. COMPARISON: CR XR chest 1V portable [id number] 06/25/2020 3:16 PM FINDINGS: Lungs: Chain sutures in the region of the upper lobe. Apparent resection of a portion of the upper lobe. Moderate pneumothorax persists status post removal of the thoracotomy tube. Stable. Pleural spaces: Unremarkable. No pleural effusion. No pneumothorax. Heart/Mediastinum: Unremarkable. No cardiomegaly. Bones/joints: Unremarkable. Other findings: Nodular density lateral to the left heart border likely nipple. XR/XR chest 1V portable [id number] IMPRESSION: 1. Chain sutures in the region of the upper lobe. Apparent resection of a portion of the upper lobe. Moderate pneumothorax persists status post removal of the thoracotomy tube. Stable. Moderate subpulmonic effusion. 2. Nodular density lateral to the left heart border likely nipple. Consider follow-up with nipple markers. CT chest dated 06-12-20 was reviewed. A nodular density in this region is not appreciated by CT.
--- NOTE | 2020-06-26 07:00 | PC.NURSE ---
End of Shift Report Patient had an uneventful night. Patient rested most of the night. Patient's is at bedside.
--- NOTE | 2020-06-26 07:01 | PC.NURSE ---
Report to Valerie HALL
--- NOTE | 2020-06-26 07:29 | PM.PN ---
Subjective Subjective: Interval history: Patient was transferred to the [facility] last night. Rested really well. Chest x-ray this morning is stable with a chest tube out. There is apical pneumothorax which we suspect will eventually resulted in fluid Over the lung. The lung parenchyma itself looks stable. Pathology from most recent surgery returned as benign. Endobronchial biopsy was also benign. Looks quite good today. Ambulating with walker without difficulty. Did discuss my discharge recommendations and she is agreeable. Vitals/I&O/Wt Last Vital Signs Temp 97.6 F 06/26/20 04:00 Pulse 85 06/26/20 04:00 Resp 20 H 06/26/20 04:08 BP 116/76 06/26/20 04:00 Pulse Ox 98 06/26/20 04:00 06/25/20 06/26/20 06/26/20 22:59 06:59 14:59 Intake Total 630 / 970 Balance 630 / 970 Physical Exam Chest: COMMONS NORMALS: normal inspection of the chest (Chest wall stable. Surgical dressings dry.) Resp: COMMON NORMALS: normal respiratory effort, No retractions and No use of accessory muscles EFFORT & INSPECTION: Yes able to speak in complete sentences, Yes symmetric chest movement, No tachypneic and No labored Cardio: COMMON NORMALS: regular rate, regular rhythm, S1 normal heart sound present, No gallops present (Cardio), No murmurs present (Cardio) and No rub (Cardio) RATE: regular rate RHYTHM: regular rhythm HEART SOUNDS: S1 normal heart sound present Extremity: COMMON NORMALS: no clubbing, cyanosis or edema Urinary Catheter Management^: Pelayo: Cath Placed During This Visit: yes, but has since been removed by the nurse Reason for Continuing Indwelling Catheter: Decision to DC Catheter Urinary Catheter Date of Insertion: 06/21/20 Urinary Catheter Time of Insertion: 09:30 Date Urinary Catheter Removed: 06/24/20 Time Urinary Catheter Discontinued: 11:00 Data : 06/26/20 05:11 06/26/20 05:11 A&P Assessment and plan (1) Secondary spontaneous pneumothorax: Pressure dependent right pneumothorax. Chest x-ray this morning is stable/status post chest tube removal. I would recommend 1 more day of pulmonary toilet and ambulation. Chest x-ray in a.m. to confirm stability. I have conferred with my colleague Dr. Orr. For patient and family convenience, after discharge, patient may follow-up with Dr. Orr as graciously agreed to follow her at his pulmonary clinic at [facility] in [place], as she resides in [facility]. 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
[2020-06-26] MEDS: sennosides-docusate Tablet 1 TAB PO (08:27)
[2020-06-26] MEDS: pantoprazole DR 40 mg Tablet PO (08:28)
--- NOTE | 2020-06-26 10:40 | PM.PN ---
Subjective Subjective: Interval history: Patient was examined this morning, she sitting up in bed, she tells me that she is feeling better, her chest tube was removed, no shortness of breath, does have a slight cough, no fevers, no chills Medications: Reviewed: Yes Vitals/I&O/Wt Last Vital Signs Temp 97.9 F 06/26/20 07:28 Pulse 85 06/26/20 07:28 Resp 18 06/26/20 08:28 BP 122/84 06/26/20 07:28 Pulse Ox 97 06/26/20 07:28 06/25/20 06/26/20 06/26/20 22:59 06:59 14:59 Intake Total 630 / 970 50 / 50 Balance 630 / 970 50 / 50 Physical Exam Const: COMMON NORMALS: no acute distress and patient oriented x3 HENMT: COMMON NORMALS: normocephalic HEAD & SCALP: normocephalic Neck/C-Spine: COMMON NORMALS: no JVD Chest: OTHER: Chest tube, removal site, has a dressing Resp: COMMON NORMALS: normal respiratory effort, No retractions, No use of accessory muscles and clear to auscultation bilaterally AUSCULTATION: clear to auscultation bilaterally Cardio: COMMON NORMALS: no JVD, regular rate, regular rhythm, S1 normal heart sound present and S2 normal heart sound present RATE: regular rate RHYTHM: regular rhythm HEART SOUNDS: S1 normal heart sound present and S2 normal heart sound present GI: COMMON NORMALS: Normal to inspection, nondistended, normoactive bowel sounds present, Soft to palpation, non-tender, No hepatosplenomegaly present, no masses and no bruits PALPATION: Yes Soft to palpation and Yes No hepatosplenomegaly present Extremity: COMMON NORMALS: capillary refill normal, no clubbing, cyanosis or edema, no calf tenderness and no pedal edema Neuro: COMMON NORMALS: patient oriented x3 Psych: COMMON NORMALS: mental status grossly normal Urinary Catheter Management^: Pelayo: Cath Placed During This Visit: yes, but has since been removed by the nurse Reason for Continuing Indwelling Catheter: Decision to DC Catheter Urinary Catheter Date of Insertion: 06/21/20 Urinary Catheter Time of Insertion: 09:30 Date Urinary Catheter Removed: 06/24/20 Time Urinary Catheter Discontinued: 11:00 Data : 06/26/20 05:11 06/26/20 05:11 A&P Assessment and plan (1) Spontaneous pneumothorax: Status: Acute (2) Leukocytosis: Status: Acute (3) Nicotine dependence: Counseled to quit Continue nicotine patch Status: Acute (4) Breast mass: Dense bilateral breast tissue with well-circumscribed 2.2 x 1.5 cm ovoid lesion upper outer right breast Incidental noted on CT chest Will need outpatient work-up Status: Acute Additional A&P Information (1) Spontaneous pneumothorax: S/p Right thoracoscopy with apical bleb resection/mechanical and chemical pleurodesis June 13 S/P thoravent 2/3 Postoperative day #3 right thoracotomy, with buttress stapled and glue reinforced resection of bullous disease right upper lobe and flexible bronchoscopy with endobronchial biopsies Status post chest tube removal yesterday Chest x-ray this morning shows: Chain sutures in the region of the upper lobe. Apparent resection of a portion of the upper lobe. Moderate pneumothorax persists status post removal of the thoracotomy tube. Stable. Moderate subpulmonic effusion. Pulmonary consult Dr. Boyce on consult Plan continue aggressive pulmonary toilet, ambulation, repeat chest x-ray tomorrow morning, likely discharge in the next 24 hours (2) Leukocytosis: White blood cell count 15 Continue Levaquin, Vancomycin (3) Nicotine dependence: Counseled to quit Continue nicotine patch Status: Acute (4) Breast mass: Dense bilateral breast tissue with well-circumscribed 2.2 x 1.5 cm ovoid lesion upper outer right breast Incidental noted on CT chest Will need outpatient work-up Attestations Medical Necessity Statement*: Patient requires hospitalization for spontaneous pneumothorax, status post chest tube removal, likely will be discharged the next 24 hours Coding Level of Care Code Acute Therapeutic Consultant for [facility] 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
--- NOTE | 2020-06-26 16:12 | PC.NURSE ---
Dressing change to right upper chest and right posterior/lateral side. Patient tolerated dressing change well.
--- NOTE | 2020-06-26 20:03 | PC.NURSE ---
PT SITTING IN BED ON LAP TOP.
[2020-06-26] MEDS: levoFLOXacin 750 mg Tablet PO (20:14)
[2020-06-27 04:00] VITALS: BP 137/88; PULSE 79; RESP 18; TEMP 36.4; O2SAT 96
[2020-06-27 04:08] VITALS: RESP 18; O2SAT 95
[2020-06-27] MEDS: oxyCODONE-APAP 5-325 mg Tablet 1 TAB PO (04:08)
[2020-06-27 05:39] LABS: Basophils # 0.1 10^3/uL (0.0-0.1); Basophils % 0.9 %; Eosinophils # 0.7 10^3/uL (0.0-0.8); Eosinophils % 4.4 %; Hemoglobin 12.6 g/dL (11.5-15.3); Lymphocytes # 3.2 10^3/uL (0.8-4.8); Lymphocytes % 20.5 %; Mean Corpuscular HGB Conc 32.3 g/dL (30.0-36.0); Mean Corpuscular Hemoglobin 29.7 pg (28.0-34.0); Mean Platelet Volume 10.4 fL (7.4-10.4); Monocytes # 1.1 10^3/uL (0.2-0.9); Monocytes % 6.7 %; Neutrophils # 10.45 10^3/uL (1.8-7.7); Neutrophils % 66.9 %; Nucleated Red Blood Cells % 0 %; Platelet Count 555 10^3/cmm (130-400); Red Blood Count 4.24 10^6/uL (4.1-5.3); Red Cell Distribution Width 12.8 % (12.1-15.1); White Blood Count 15.6 10^3/uL (4.0-10.0)
[2020-06-27 06:00] LABS: Alanine Aminotransferase 21 U/L (0-33); Albumin Level 3.3 g/dL (3.5-5.2); Alkaline Phosphatase 124 IU/L (35-105); Anion Gap 12.9 (5-19); Aspartate Amino Transferase 17 U/L (0-32); Blood Urea Nitrogen 11 mg/dL (6-20); Calcium 8.9 mg/dL (8.5-10.5); Carbon Dioxide 29 mmol/L (22-29); Chloride 98 mmol/L (98-107); Globulin 3.4 g/dL (1.3-4.6); Glomerular Filtration Rate 137.4 mL/min (90-130); Glucose 101 mg/dL (65-115); Magnesium 1.8 mg/dL (1.7-2.3); Osmolality Calculated 282 mOsm/kg (285-295); Phosphorus 3.9 mg/dL (2.5-4.5); Potassium 3.9 mmol/L (3.5-5.1); Sodium 136 mmol/L (136-145); Total Bilirubin 0.2 mg/dL (0.15-1.2); Total Protein 6.7 g/dL (6.6-8.7)
--- NOTE | 2020-06-27 06:00 | XR_ITS ---
WS: [id number] Portable AP upright chest, 06/27/2020 Clinical Data: 2 days s/p CT removal: pressure dependent pneumo Comparison: Portable chest, 06/26/2020. Findings: There is still a right apical pneumothorax with sutures in the superior portion of the righ t lung. There may be a small right effusion. The left lung is clear. The heart is normal. XR/XR chest 1V portable [id number] Impression: 1. No change in right upper lobe pneumothorax and sutures in the superior aspec t of the right lung. 2. Minimal right effusion unchanged.
--- NOTE | 2020-06-27 06:24 | P.PN_ITS ---
Subjective Subjective: Interval history: Rested reasonably well last night. Looks good on rounds this morning. Chest x-ray this morning is stable with perhaps some slight increased aeration to the right lung. No consolidation or substantial fluid collections, though clearly the space apically may eventually fill with fluid. Pulmonary status continues to slowly improve. She is pulling about 1000 cc on incentive spirometer. She may shower this morning, prior to discharge if cleared by our hospitalist service. Vitals/I&O/Wt Last Vital Signs Temp 97.6 F 06/27/20 04:00 Pulse 79 06/27/20 04:00 Resp 18 06/27/20 04:08 BP 137/88 06/27/20 04:00 Pulse Ox 95 06/27/20 04:08 06/26/20 06/26/20 06/27/20 14:59 22:59 06:59 Intake Total 50 / 50 660 / 710 Balance 50 / 50 660 / 710 Physical Exam 2 Chest: COMMONS NORMALS: normal inspection of the chest and normal palpation of entire chest wall (Chest wall is stable.) Resp: COMMON NORMALS: normal respiratory effort, No retractions, No use of accessory muscles and percussion normal EFFORT & INSPECTION: Yes able to speak in complete sentences and Yes symmetric chest movement PERCUSSION: percussion normal OTHER: Mild basilar crackles, clears with cough. Cardio: COMMON NORMALS: regular rate, regular rhythm, S1 normal heart sound present and No rub (Cardio) RATE: regular rate RHYTHM: regular rhythm HEART SOUNDS: S1 normal heart sound present Extremity: COMMON NORMALS: no clubbing, cyanosis or edema Urinary Catheter Management^: Pelayo: Cath Placed During This Visit: yes, but has since been removed by the nurse Reason for Continuing Indwelling Catheter: Decision to DC Catheter Urinary Catheter Date of Insertion: 06/21/20 Urinary Catheter Time of Insertion: 09:30 Date Urinary Catheter Removed: 06/24/20 Time Urinary Catheter Discontinued: 11:00 Data : 06/27/20 04:53 06/27/20 04:53 A&P Assessment and plan (1) Secondary spontaneous pneumothorax: Pressure dependent right pneumothorax Impression: From surgical standpoint, patient may be discharged to home today with home health services. May follow-up in my clinic in 1 week with chest x- ray. I would schedule follow-up with Dr. Orr at his pulmonary clinic in [place] at next available appointment, which I believe is in about 3 weeks. Status: Acute Attestations Medical Necessity Statement*: Spontaneous pneumothorax status post bleb resection Time Spent in Patient Care: 16 - 35 minutes Coding Level of Care Code Acute Gasoline Finisher for Chg Fwd Exam Expanded Problem Focused Diagnoses Secondary spontaneous pneumothorax J93.12
[2020-06-27] MEDS: HYDROcodone-acetaminophen 5-325 mg Tablet 1 TAB PO ×2 (07:39→11:39)
[2020-06-27 07:56] VITALS: BP 115/78; PULSE 76; RESP 17; TEMP 36.4; O2SAT 97
[2020-06-27] MEDS: chlorhexidine gluconate 4% Btl 118 mL 1 APPLIC TOPICAL (08:50)
[2020-06-27] MEDS: sennosides-docusate Tablet 1 TAB PO (08:50)
[2020-06-27] MEDS: pantoprazole DR 40 mg Tablet PO (08:50)
--- NOTE | 2020-06-27 09:47 | P.DS_ITS ---
Discharge Providers Date of Admission: 06/07/20 22:30 Date of Discharge: June 27, 2020 Attending Provider at Admission: Jessee Figueroa MD Attending Provider at Discharge: Sang Christine MD Diagnoses at Discharge Discharge Diagnosis (1) Secondary spontaneous pneumothorax: Status: Acute Reason for Visit Reason for Visit: cp/sob Hospital Course Hospital Course This is a 40-year-old female with no significant past medical history other than marijuana use, nicotine dependence, who presented to [facility] due to complaints of right-sided chest pain Patient was admitted to [facility] for spontaneous pneumothorax, had a chest tube placed in the emergency room, was admitted to the ICU for monitoring, cardiothoracic surgery and pulmonary service was consulted. Patient has significant emphysema seen on imaging. Patient underwent a bronchoscopy by Dr. Orr and was found to have within the right upper lobe apical segment a endobronchial lesion, biopsies were negative for malignancy, she underwent right-sided thoracotomy with apical resection of the right upper lobe with buttressing suture by Dr. Boyce. Patient chest tube was monitored as inpatient, she was monitored in the ICU, pneumothorax was monitored. Patient chest tube was removed, chest x-rays were stable status post removal, she was moved to general medical floors, received aggressive pulmonary toilet, physical therapy, ambulating without significant symptomatology. Patient will be discharged with instructions to stop marijuana and nicotine use. Follow-up with Dr. Boyce, follow-up with Dr. Orr as scheduled. Patient also had leukocytosis during her hospital mission, cultures have been unremarkable, she was on inpatient antibiotic therapy, has finished his antibiotic therapy as inpatient. Patient was also found to have a well circumcised 2.2 x 1.5 cm ovoid lesion in the right upper outer breast. Patient should follow-up with primary care physician for mammography and ultrasound. Physical Exam Const: COMMON NORMALS: no acute distress and patient oriented x3 HENMT: COMMON NORMALS: normocephalic HEAD & SCALP: normocephalic Neck/C-Spine: COMMON NORMALS: no JVD Resp: COMMON NORMALS: normal respiratory effort, No retractions, No use of accessory muscles and clear to auscultation bilaterally AUSCULTATION: clear to auscultation bilaterally Cardio: COMMON NORMALS: no JVD, regular rate, regular rhythm, S1 normal heart sound present and S2 normal heart sound present RATE: regular rate RHYTHM: regular rhythm HEART SOUNDS: S1 normal heart sound present and S2 normal heart sound present GI: COMMON NORMALS: Normal to inspection, nondistended, normoactive bowel sounds present, Soft to palpation, non-tender, No hepatosplenomegaly present, no masses and no bruits PALPATION: Yes Soft to palpation and Yes No hepatosplenomegaly present Extremity: COMMON NORMALS: capillary refill normal, no clubbing, cyanosis or edema, no calf tenderness and no pedal edema Neuro: COMMON NORMALS: patient oriented x3 Psych: COMMON NORMALS: mental status grossly normal Urinary Catheter Management^: Pelayo: Cath Placed During This Visit: yes, but has since been removed by the nurse Reason for Continuing Indwelling Catheter: Decision to DC Catheter Urinary Catheter Date of Insertion: 06/21/20 Urinary Catheter Time of Insertion: 09:30 Date Urinary Catheter Removed: 06/24/20 Time Urinary Catheter Discontinued: 11:00 Discharge Data Data Completed and Pending: Completed Studies During Hospitalization Category Date Time Status CT chest w con* 7 1260 Routine Cat Scan 06/12/20 12:21 Completed CXRP [XR chest 1V portable 61846] R outine Exams 06/18/20 11:56 Completed CXRP [XR chest 1V portable 74923] S tat Exams 06/18/20 04:23 Completed XR chest 1V po ble 64886 QAM Exams 06/08/20 06:00 Completed XR chest 1V po ble 85093 QAM Exams 06/09/20 06:00 Completed XR chest 1V po ble 62324 Routine Exams 06/11/20 07:00 Completed XR chest 1V po ble 10888 Routine Exams 06/13/20 18:59 Completed XR chest 1V po ble 43425 Routine Exams 06/14/20 06:00 Completed XR chest 1V po ble 06746 Routine Exams 06/15/20 06:00 Completed XR chest 1V po ble 83319 Routine Exams 06/16/20 07:00 Completed XR chest 1V po ble 71696 Routine Exams 06/19/20 06:00 Completed XR chest 1V po ble 47403 Routine Exams 06/20/20 06:00 Completed XR chest 1V po ble 59972 Routine Exams 06/21/20 12:28 Completed XR chest 1V po ble 33350 Routine Exams 06/22/20 06:00 Completed XR chest 1V po ble 02934 Routine Exams 06/23/20 06:00 Completed XR chest 1V po ble 90462 Routine Exams 06/24/20 06:00 Completed XR chest 1V po ble 21976 Routine Exams 06/25/20 06:00 Completed XR chest 1V po ble 74143 Routine Exams 06/25/20 14:30 Completed XR chest 1V po ble 70230 Routine Exams 06/26/20 06:00 Completed XR chest 1V po ble 53915 Routine Exams 06/27/20 06:00 Completed XR chest 1V po ble 84832 Stat Exams 06/07/20 20:33 Completed XR chest 1V po ble 60415 Stat Exams 06/08/20 00:06 Completed XR chest 1V po ble 89393 Stat Exams 06/08/20 00:39 Completed XR chest 1V po ble 67733 Urgent Exams 06/07/20 22:04 Completed Pathology: Surgic al [PTH] Routine Pth 06/13/20 18:26 Completed Pathology: Surgic al [PTH] Routine Pth 06/21/20 14:06 Completed Pending at discharge Category Date Time Status Complete Blood Co unt w/Auto AM LABS Lab 06/28/20 04:00 Ordered Comprehensive Met abolic Panel AM LA BS Lab 06/28/20 04:00 Ordered Magnesium AM LABS Lab 06/28/20 04:00 Ordered Phosphorus AM LAB S Lab 06/28/20 04:00 Ordered Labs from last 24 hours 06/27/20 06/27/20 04:53 04:53 WBC 15.6 H RBC 4.24 Hgb 12.6 Hct 39.0 MCV 92.0 MCH 29.7 MCHC 32.3 RDW 12.8 Plt Count 555 H MPV 10.4 Neut % (Auto) 66.9 Lymph % (Auto) 20.5 Grimes % (Auto) 6.7 Eos % (Auto) 4.4 Baso % (Auto) 0.9 Neut # (Auto) 10.45 H Lymph # (Auto) 3.2 Grimes # (Auto) 1.1 H Eos # (Auto) 0.7 Baso # (Auto) 0.1 Nucleated RBC % (a uto) 0 Nucleated RBCs # 0.0 Sodium 136 Potassium 3.9 Chloride 98 Carbon Dioxide 29 Anion Gap 12.9 BUN 11 Creatinine 0.5 GFR Calculation 137.4 H Glucose 101 Calculated Osmolal ity 282 L Calcium 8.9 Phosphorus 3.9 Magnesium 1.8 Total Bilirubin 0.2 AST 17 ALT 21 Alkaline Phosphata se 124 H Total Protein 6.7 Albumin 3.3 L Globulin 3.4 Vitals: Last Vital Signs Temp 97.6 F 06/27/20 07:56 Pulse 76 06/27/20 07:56 Resp 17 06/27/20 07:56 BP 115/78 06/27/20 07:56 Pulse Ox 97 06/27/20 07:56 Discharge Plan Discharge Patient Disposition: Home Health Service Condition: Stable Prescriptions: No Action No Known Home Medications RF: 0 Discharge Orders: Discharge Order (Routine); Ordered 06/27/20 Ordered By: Sang Christine Referrals: Kelvin Boyce MD [Physician] - 1 week Taiwo Orr MD [Physician] - 1 month (At [facility] with CXR on day of that visit) Brandie Foy NP [Nurse Practitioner] - 06/29/20 1:00 pm (You are scheduled to establish care at the [facility]. Please arrive a few minutes early and bring your ID, Medications in original bottles, discharge folder from hospital, and Insurance information to appointment. Thank you for choosing [facility].) Discharge Diet: Usual diet Discharge Activity: Limit activity as instructed Activity Restrictions/Additional Instructions: No heavy lifting or pulling x4 weeks May shower, no tub baths or swimming x4 weeks Use incentive spirometry frequently -follow up with primary care for right breast density seen on ct for mammogram and us Discharge Attestations Time Spent in Discharge Care*: less than 30 min Quality Metrics Clinical Quality Measures During this hospital stay, did patient experience: None Coding Level of Care Code Acute Work Adjustment Instructor for Chg Fwd Diagnoses Secondary spontaneous pneumothorax J93.12
[2020-06-27 09:59] VITALS: O2SAT 94; O2SAT 98
[2020-06-27 14:08] VITALS: BP 115/78; PULSE 76; RESP 17; TEMP 36.4; O2SAT 97
== END 2020-06-27 12:09 | disposition home health service (06) | DRG 164 ==
LOC: ER 22:08 → ICU 22:51 → MEDSURG 06-10 13:34 → ICU 06-13 17:42 → MEDSURG 06-14 09:11 → ICU 06-21 09:31 → MEDSURG 06-25 19:20
PROVIDERS: Hospitalist; Internal Medicine; Thoracic Surgery (Cardiothoracic Vascular Surgery); Admitting Provider Internal Medicine; Emergency Provider Emergency Medicine; Visit Provider Family Medicine
PROC: 0BQC4ZZ Repair Right Upper Lung Lobe, Percutaneous Endoscopic Approach (ICD-10-PCS; CPT 32215; principal; 2020-06-13 15:00)
PROC: 0BQC4ZZ Repair Right Upper Lung Lobe, Percutaneous Endoscopic Approach (ICD-10-PCS; 2020-06-13 15:00)
PROC: 0B9P30Z Drainage of Left Pleura with Drainage Device, Percutaneous Approach (ICD-10-PCS; CPT 32551; principal; 2020-06-18 10:40)
PROC: 0BJ Respiratory System, Inspection (ICD-10-PCS; principal; 2020-06-21 08:30)
PROC: 0BJ08ZZ Inspection of Tracheobronchial Tree, Via Natural or Artificial Opening Endoscopic (ICD-10-PCS; CPT 31622; 2020-06-21 08:30)
DX: J86.0 Pyothorax with fistula (principal); T85.628A Displacement of other specified internal prosthetic devices, implants and grafts, initial encounter; F12.10 Cannabis abuse, uncomplicated; F17.210 Nicotine dependence, cigarettes, uncomplicated; D75.1 Secondary polycythemia; N63.11 Unspecified lump in the right breast, upper outer quadrant; J43.2 Centrilobular emphysema; R91.1 Solitary pulmonary nodule
CPT/HCPCS: 01996; 12345; 32551; 36415; 36416; 51702; 62324; 62326; 71045; 71260; 80048; 80053; 80306; 81001; 82103; 82962; 83735; 84100; 84145; 84484; 85025; 85378; 85610; 86850; 86900; 86920; 87070; 87205; 88305; 88307; 88309; 93005; 94664; 94762; 96374; 96375; 99283; 99291; C2816; J0330; J1100; J1170; J1885; J1956; J2060; J2250; J2270; J2405; J2704; J2710; J2795; J3010; J3370; J3490; J7030; J7050; J7799; P9016; Q9967

== ENCOUNTER 2020-07-06 10:01 | Outpatient (CLI) | payer MEDICAID, SELFPAY ==
--- NOTE | 2020-07-06 10:07 | XR_ITS ---
WS: [id number] CHEST, 1 view. HISTORY: J93.83 - Other pneumothorax COMPARISON: 06/27/2020 Air-fluid level in the RIGHT upper thorax is now present. Fluid was not present on the prior study. T he RIGHT apical pneumothorax has not increased in size but there is increase fluid. There is a row of surgical sutures projecting over the RIGHT upper lung. Suspect partial resection of the RIGHT upper lobe. LEFT lung is clear. Cardiac size: Normal. Mediastinum/Aorta: Normal mediastinum. No osseous abnormality seen. XR/XR chest 1V 36081 IMPRESSION: 1. RIGHT apical small hydropneumothorax. Fluid component is new since 1. 2. Numerous surgical sutures in the RIGHT upper thorax are stable and unchange d.
== END 2020-07-06 10:02 | disposition home or self-care (01) ==
PROVIDERS: Visit Provider Thoracic Surgery (Cardiothoracic Vascular Surgery)
DX: J93.83 Other pneumothorax (principal)
CPT/HCPCS: 71045

== ENCOUNTER 2020-07-23 23:27 | Emergency (ER) | payer MEDICAID, SELFPAY ==
--- NOTE | 2020-07-23 23:28 | XRR_ITS ---
PROCEDURE INFORMATION: Exam: XR Chest Exam date and time: 07/23/2020 11:53 PM Age: 40 years old Clinical indication: Chest pain; Additional info: Cp TECHNIQUE: Imaging protocol: XR of the chest Views: 1 view. COMPARISON: CR XR chest 1V 13282 07/06/2020 10:14 AM FINDINGS: Lungs: Continued hyperinflation of the lungs. Continued lines of metallic dori in the superior right upper lung along the inferior aspect of the pneumothorax. Still no airspace disease. Pleural spaces: Interval disappearance of the air-fluid levels from the right upper pneumothorax without definite increase in its size. Stable mild blunting of the right lateral angle possibly due to minimal pleural fluid and/or scar. Still no left pneumothorax or left pleural fluid. Heart/Mediastinum: Still no cardiomegaly. Bones/joints: No apparent acute bony disease. XR/XR chest 1V portable [id number] IMPRESSION: Interval disappearance of the air-fluid levels from the right upper pneumothorax; postoperative nature of the pneumothorax related to prior resection of part of the right upper lobe still suspected. Continued hyperinflation of the lungs consistent with emphysema.
--- NOTE | 2020-07-23 23:28 | ECG_ITS ---
[facility] Test Date: 2020-07-23 Pat Name: Sylvia Snell Department: Room: Gender: Female Chief Steward/Stewardess: HUI : 1980 Requested By: Mely Raman Order Number: [id number] Naina MD: Alena Edwards M.D. Measurements Intervals [place] Rate: 111 P: 151 FL: 140 QRS: 43 QRSD: 107 T: 114 QT: 308 QTc: 419 Interpretive Statements ECTOPIC ATRIAL TACHYCARDIA RIGHT ATRIAL ENLARGEMENT [0.3mV P WAVE] LEFT ATRIAL ENLARGEMENT [-0.15mV P WAVE IN V1/V2] INDETERMINATE AXIS INCOMPLETE RIGHT BUNDLE BRANCH BLOCK [90+ ms QRS DURATION, TERMINAL R IN V1/V2, 40+ ms S IN I/aVL/V4/V5/V6] MODERATE T-WAVE ABNORMALITY, CONSIDER LATERAL ISCHEMIA [-0.1+ mV T WAVE IN I/aVL/V5/V6] Compared to ECG 06/07/2020 22:28:48 Indeterminate axis now presentT-wave abnormality now presentPossible ischemia now present. Sinus tachycardia no longer present Left-axis deviation no longer present Electronically Signed On 07-24-2020 23:50:30 PELLET POST INSPECTOR by Alena Edwards M.D. [id number] f
[2020-07-23 23:40] VITALS: BP 148/74; PULSE 108; RESP 22; TEMP 36.7; O2SAT 97; BMI 16.8
--- NOTE | 2020-07-24 | W.ED.CHESTPA ---
HPI - Chest Pain General: Chief Complaint: Chest Pain Stated Complaint: chest pains. Time Seen by Provider: 07/23/20 23:54 History of Present Illness: HPI narrative: Patient comes in complaining about pain in her incisional site from recent pulmonary surgery. Says she had fell asleep and then not taking her pain meds for about 15 hours now and it is starting to hurt. Says she been cutting back on pain medicine last 3 days. denies chest heaviness diaphoresis or cardiac related type problems. Her pain is consistent with her postsurgical pain that she has been taking the pain medicine for MD complaint: other (Pain in the incisional site) Pertinent past history: other (Recent pulmonary air leak pneumothorax) Onset (ago): hour(s) Timing of current episode: constant Prior episodes: Yes Associated symptoms: Reports no associated symptoms; Deny abdominal pain, dyspnea, fever(s), nausea or vomiting Review of Systems Const: Denies: fever(s), chills or body aches Eyes: Denies: change in vision or blurry vision ENMT: Denies: throat pain or nasal congestion Card: Reports: chest pain (Incisional site chest pain); Denies: dyspnea on exertion Resp: Denies: dyspnea, productive cough or non-productive cough GI: Denies: abdominal pain, nausea or vomiting Musc: Denies: extremity pain Skin/Breast: Denies: rash Neuro: Denies: headache(s) Psych: Denies: anxiety or depression Moe/Lymph: Denies: easy bruising PFSH ED PFSH: Medical History Marijuana abuse Smoker Surgical History Status post chest tube placement right -- 05/2020 Family History Mother Atelectasis Social History Smoking and tobacco status: current every day smoker cigarettes [ Other cigarette details: Smokes 2 to 3 packs a day ] Quit status (tobacco): has quit using tobacco Year quit tobacco: 2020 Alcohol intake: current Alcohol intake frequency: 0-2 Drinks per Day Female Reproductive History: Date of last menstrual period: 06/05/20 Physical Exam Const: COMMON NORMALS: no acute distress, average body habitus and patient oriented x3 HENMT: COMMON NORMALS: normocephalic HEAD & SCALP: normal to inspection and normocephalic FACE & SINUS: normal facial exam Eye: COMMON NORMALS: conjunctivae normal GENERAL EYE: appearance normal, both eyes and all related structures CONJUNCTIVA: Yes conjunctivae normal Neck/C-Spine: COMMON NORMALS: no JVD Chest: COMMONS NORMALS: normal inspection of the chest (Wound is healing well tenderness along incisional site no drainage) Resp: COMMON NORMALS: normal respiratory effort and clear to auscultation bilaterally AUSCULTATION: clear to auscultation bilaterally Cardio: COMMON NORMALS: no JVD, regular rate and regular rhythm RATE: regular rate RHYTHM: regular rhythm GI: COMMON NORMALS: Normal to inspection, nondistended, normoactive bowel sounds present Extremity: COMMON NORMALS: normal to inspection and full ROM Neuro: COMMON NORMALS: patient oriented x3 Course Vital Signs: Vital signs: Vital Signs Temperature 98.1 F 07/24/20 00:47 Pulse Rate 97 07/24/20 00:47 Respiratory Rate 23 H 07/24/20 00:47 Blood Pressure 117/84 07/24/20 00:47 Pulse Oximetry 98 07/24/20 00:47 MDM - Chest Pain MDM Narrative: Medical decision making narrative: Dr. Raman and I discussed the case . plan of action approved. patient follow-up with manager utilization review on [place] patient had good relief with pain medication. EKG Data^: EKG 1: EKG interpretation date: 07/24/20 EKG interpretation time: 23:36 Computer generated interpretation: Shows ectopic atrial tachycardia ventricular rate 111 bpm GA interval 140 ms QRS durations 107 ms QT is 308 right atrial enlargement left atrial enlargement incomplete right bundle branch block moderate T wave abnormality in 1 aVL V5 V6 Discharge Plan Discharge Patient Disposition: Home Clinical Impression: Pain at surgical site Condition: Stable Prescriptions: New hydrocodone-acetaminophen 5-325 mg tablet 1 tab PO TID PRN (Reason: pain) Qty: 14 RF: 0 No Action GlycoLax 17 gram/dose powder 17 g PO DAILY Qty: 238 RF: 0 Discharge Orders: Discharge ED (Routine); Ordered 07/24/20 Ordered By: Syd Fregoso Discharge Diet: Usual diet Discharge Activity: Resume usual activity Patient Instructions: Opioid Safety Activity Restrictions/Additional Instructions: Follow-up your primary care and surgeon provider for reevaluation of incisional site pain. Coding Level of Care Code ED Prosthetic Makeup Designer for Chg Fwd Exam Comprehensive
[2020-07-24 00:12] VITALS: BP 130/83; PULSE 107; RESP 28; O2SAT 99
[2020-07-24] MEDS: HYDROcodone-acetaminophen 7.5-325 mg Tablet 1 TAB PO (00:14)
[2020-07-24 00:15] VITALS: BP 130/83; PULSE 112; RESP 23; O2SAT 99
[2020-07-24 00:47] VITALS: BP 117/84; PULSE 97; RESP 23; TEMP 36.7; O2SAT 98
== END 2020-07-24 00:49 | disposition home or self-care (01) ==
PROVIDERS: Emergency Provider Nurse Practitioner Family
DX: G89.18 Other acute postprocedural pain (principal); F17.210 Nicotine dependence, cigarettes, uncomplicated; Z98.890 Other specified postprocedural states
CPT/HCPCS: 71045; 93005; 99283

== ENCOUNTER → 2020-09-03 16:33 | Outpatient (BNVA) | payer MEDICAID, SELFPAY | PROVIDERS: Visit Provider Nurse Practitioner Family | DX: B37.0 Candidal stomatitis (principal); Z68.20 Body mass index [BMI] 20.0-20.9, adult | CPT/HCPCS: 36416; 82962 ==

== ENCOUNTER → 2020-10-05 14:33 | Outpatient (BNVA) | payer MEDICAID, SELFPAY | PROVIDERS: PCP Nurse Practitioner Family; Visit Provider Internal Medicine Critical Care Medicine | DX: Z20.822 Contact with and (suspected) exposure to COVID-19 (principal) | CPT/HCPCS: 87635 ==

== ENCOUNTER 2020-10-10 13:43 | Outpatient (CLI) | payer MEDICAID, SELFPAY ==
--- NOTE | 2020-10-10 14:16 | PFTS_ITS ---
Date of Study:10/10/20 Date of Dictation: 10/11/2020 MECHANICS: Post bronchodilator forced vital capacity (FVC) is reduced 69%. Postbronchodilator forced expiratory volume in one second (FEV1) is reduced 1.48 L and 50%. FEV1/FVC is reduced. There is significant response to bronchodilators. FLOW VOLUME LOOP: Sloping of expiratory limb suggestive of airway obstruction . LUNG VOLUMES: Total lung capacity (TLC) is normal. Residual volume (RV) is increased suggestive of mild air trapping 154%. DIFFUSING CAPACITY FOR CARBON MONOXIDE: Normal . INTERPRETATION: The pulmonary function tests are consistent with severe obstructive ventilatory defect with minimal air trapping on lung volumes. There is significant response to bronchodilators. There is no gas transfer defect. Correlate clinically. MTDD
== END 2020-10-10 13:44 | disposition home or self-care (01) ==
PROVIDERS: PCP Family Medicine; Visit Provider Internal Medicine Critical Care Medicine
DX: J43.9 Emphysema, unspecified (principal)
CPT/HCPCS: 94060; 94726; 94729; J7611

== ENCOUNTER 2020-10-26 06:00 | Outpatient (RCR) | payer MEDICAID, SELFPAY | END 2020-11-14 23:59 | disposition home or self-care (01) | LOC: GPT 06:00 | PROVIDERS: PCP Family Medicine; Referring Provider Internal Medicine Critical Care Medicine; Visit Provider Internal Medicine Critical Care Medicine | DX: M75.00 Adhesive capsulitis of unspecified shoulder (principal) | CPT/HCPCS: 97032; 97110; 97140; 97162; 97530 ==

== ENCOUNTER 2020-11-15 06:00 | Outpatient (RCR) | payer MEDICAID, SELFPAY | END 2020-12-15 23:59 | disposition home or self-care (01) | LOC: GPT 06:00 | PROVIDERS: PCP Family Medicine; Referring Provider Internal Medicine Critical Care Medicine; Visit Provider Internal Medicine Critical Care Medicine | DX: M75.00 Adhesive capsulitis of unspecified shoulder (principal) | CPT/HCPCS: 97032; 97110; 97140; 97164; 97530 ==

== ENCOUNTER 2020-12-16 06:00 | Outpatient (RCR) | payer MEDICAID, SELFPAY | END 2021-01-15 23:59 | disposition home or self-care (01) | LOC: GPT 06:00 | PROVIDERS: PCP Family Medicine; Referring Provider Internal Medicine Critical Care Medicine; Visit Provider Internal Medicine Critical Care Medicine | DX: M75.00 Adhesive capsulitis of unspecified shoulder (principal) | CPT/HCPCS: 97032; 97110; 97140; 97164; 97530 ==

== ENCOUNTER 2021-03-22 15:55 | Emergency (ER) | payer MEDICAID, SELFPAY ==
[2021-03-22 17:12] VITALS: BP 119/85; PULSE 97; RESP 18; TEMP 36.8; O2SAT 99; BMI 24.3
--- NOTE | 2021-03-22 17:56 | ECG_ITS ---
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1980 Requested By: Johnson Simon Order Number: [id number] Reading MD: DONY MCCORMICK Measurements Intervals [place] Rate: 90 P: 80 [place]: 149 QRS: 82 QRSD: 110 T: 61 QT: 344 QTc: 423 Interpretive Statements SINUS RHYTHM WITH SINUS ARRHYTHMIA RIGHT ATRIAL ENLARGEMENT [0.3mV P-WAVE] INDETERMINATE AXIS INCOMPLETE RIGHT BUNDLE BRANCH BLOCK [90+ ms QRS DURATION, TERMINAL R IN V1/V2, 40+ ms S IN I/aVL/V4/V5/V6] POSSIBLE RIGHT VENTRICULAR HYPERTROPHY [SOME/ALL OF: PROMINENT R IN V1, LATE TRANSITION, RAD, RICHAR, SSS] Compared to ECG 07/23/2020 23:36:55 T-wave abnormality no longer present Possible ischemia no longer present Electronically Signed On 03-22-2021 23:56:55 CDT by DONY MCCORMICK [id number]
[2021-03-22 19:41] VITALS: BP 119/85; PULSE 97; RESP 18; TEMP 36.8; O2SAT 99
== END 2021-03-22 18:35 | disposition left against medical advice (07) ==
LOC: ER 15:58
PROVIDERS: Emergency Provider Family Medicine; PCP Family Medicine
DX: Z53.21 Procedure and treatment not carried out due to patient leaving prior to being seen by health care provider (principal)
CPT/HCPCS: 93005

== ENCOUNTER 2021-04-09 21:36 | Emergency (ER) | payer MEDICAID, SELFPAY ==
[2021-04-09 21:47] VITALS: PULSE 115; RESP 22; TEMP 36.7; O2SAT 100; BMI 23.7
[2021-04-09 23:53] VITALS: BP 123/92; PULSE 116; RESP 18; O2SAT 99
--- NOTE | 2021-04-09 23:59 | W.ED.DIZZY ---
HPI - Dizziness General: Chief Complaint: Dizziness Stated Complaint: Nausea\dizzy\ Time Seen by Provider: 04/09/21 23:44 Source: patient Mode of arrival: ambulatory Limitations: no limitations History of Present Illness: HPI Narrative: 40-year-old female states she been having dizziness over the last day. States that with any sudden movements she gets very dizzy feels like the room spinning and feels like she will vomit she states she had difficulty walking due to this but if she stands for a while the dizziness improves denies any headache denies any injuries denies any fever. Associated symptoms: Denies chest pain, chills, headache(s), nausea or vomiting Review of Systems Const: Denies: fever(s), chills, body aches or change in appetite Eyes: Denies: blurry vision or eye discomfort ENMT: Denies: throat pain or dental pain Card: Denies: chest pain Resp: Denies: dyspnea GI: Denies: abdominal pain, nausea, vomiting or diarrhea : Denies: dysuria Musc: Denies: neck pain or back pain Skin/Breast: Denies: rash Neuro: Reports: dizziness; Denies: headache(s) Psych: Denies: depression Moe/Lymph: Denies: easy bruising All/Imm: Denies: urticaria PFSH ED PFSH: Medical History Emphysema, unspecified Marijuana abuse Smoker Surgical History Status post chest tube placement right -- 05/2020 Family History Mother Atelectasis Social History Smoking and tobacco status: current every day smoker e-cigarettes E-Cigarette Details: vaporizer device E-cig/vape details: CBD Oil Quit status (tobacco): has quit using tobacco Year quit tobacco: 2020 Former quit date comment: Hx of 2-3 PPD x 27 Years Second hand smoke exposure: Yes Smoking risk assessment/counseling performed?: No Alcohol intake: current Alcohol intake frequency: holidays/special occasions only Counseling given: No Counseling given: No Lives independently: Yes Household members: spouse Marital status: Current occupational status: unemployed History of recent travel: No Current gender identity: Female Female Reproductive History: Date of last menstrual period: 03/04/21 Physical Exam Const: COMMON NORMALS: no acute distress, patient oriented x3 and healthy appearing HENMT: COMMON NORMALS: normocephalic and atraumatic HEAD & SCALP: normocephalic and atraumatic Eye: COMMON NORMALS: Equal, round and reactive pupils present and EOMs intact bilaterally PUPIL: Yes Equal, round and reactive pupils present Neck/C-Spine: COMMON NORMALS: full ROM and supple Chest: COMMONS NORMALS: normal inspection of the chest and normal palpation of entire chest wall Resp: COMMON NORMALS: normal respiratory effort, No retractions, No use of accessory muscles and clear to auscultation bilaterally AUSCULTATION: clear to auscultation bilaterally Cardio: COMMON NORMALS: regular rate, regular rhythm and No murmurs present (Cardio) RATE: regular rate RHYTHM: regular rhythm GI: COMMON NORMALS: Normal to inspection, nondistended, normoactive bowel sounds present, Soft to palpation, non-tender and no masses PALPATION: Yes Soft to palpation Extremity: COMMON NORMALS: normal to inspection and full ROM Neuro: COMMON NORMALS: patient oriented x3, moves all extremities and no focal motor deficits Psych: COMMON NORMALS: mental status grossly normal, Normal thought process present and cooperative THOUGHT PROCESS: Normal thought process present Skin: COMMON NORMALS: no rashes or lesions noted and no wounds GENERAL SKIN EXAM: no rashes or lesions noted Course Vital Signs: Vital signs: Vital Signs Temperature 98.1 F 04/09/21 21:47 Pulse Rate 103 H 04/10/21 00:52 Respiratory Rate 18 04/10/21 00:52 Blood Pressure 116/82 04/10/21 00:52 Pulse Oximetry 98 04/10/21 00:52 MDM - Dizziness MDM Narrative: Medical decision making narrative: Patient presents here with vertigo is likely peripheral in nature symptoms are much worse with sudden movements she has no signs of a stroke. Exam is benign she feels improved here after meclizine and Valium will prescribe her meclizine for home she is to follow-up with PCP and return if worsening. Lab Data: Labs: Lab Results 04/10/21 04/10/21 04/10/21 00:16 00:16 00:16 WBC 13.5 10^3/uL H 10 ^3/uL (4.0-10.0) RBC 5.26 10^6/uL 10^6 /uL (4.1-5.3) Hgb 14.6 g/dL g/dL (11.5-15.3) Hct 42.8 % % (37.0-47.0) MCV 81.4 fl fl (81-99) MCH 27.8 pg L pg (28.0-34.0) MCHC 34.1 g/dL g/dL (30.0-36.0) RDW 14.1 % % (12.1-15.1) Plt Count 599 10^3/cmm H 10 ^3/cmm (130-400) MPV 9.1 fL fL (7.4-10.4) Neut % (Auto) 65.1 % % Lymph % (Auto) 26.8 % % [place] % (Auto) 6.4 % % Eos % (Auto) 0.7 % % Baso % (Auto) 0.7 % % Neut # (Auto) 8.81 10^3/uL H 10 ^3/uL (1.8-7.7) Lymph # (Auto) 3.6 10^3/uL 10^3/ uL (0.8-4.8) [place] # (Auto) 0.9 10^3/uL 10^3/ uL (0.2-0.9) Eos # (Auto) 0.1 10^3/uL 10^3/ uL (0.0-0.8) Baso # (Auto) 0.1 10^3/uL 10^3/ uL (0.0-0.1) Nucleated RBC % (a uto) 0 % % Nucleated RBCs # 0.0 /100WBC /100W BC Sodium 136 mmol/L mmol/L (136-145) Potassium 3.8 mmol/L mmol/L (3.5-5.1) Chloride 101 mmol/L mmol/L (98-107) Carbon Dioxide 19 mmol/L L mmol/ L (22-29) Anion Gap 19.8 H (5-19) BUN 10 mg/dL mg/dL (6-20) Creatinine 0.7 mg/dL mg/dL (0.5-0.9) GFR Calculation 93.2 mL/min mL/mi n (90-130) Glucose 102 mg/dL mg/dL (65-115) Calculated Osmolal ity 281 mOsm/kg L mOs m/kg (285-295) Calcium 8.7 mg/dL mg/dL (8.5-10.5) Total Bilirubin 0.3 mg/dL mg/dL (0.15-1.2) AST 12 U/L U/L (0-32) ALT < 5 U/L U/L (0-33) Alkaline Phosphata se 138 IU/L H IU/L (35-105) Total Protein 8.0 g/dL g/dL (6.6-8.7) Albumin 4.5 g/dL g/dL (3.5-5.2) Globulin 3.5 g/dL g/dL (1.3-4.6) HCG, Qual Negative (Negative) Discharge Plan Discharge Patient Disposition: Home Clinical Impression: Vertigo Condition: Stable Prescriptions: New meclizine 50 mg tablet 50 mg PO BID PRN (Reason: dizziness) Qty: 30 RF: 0 No Action naproxen 500 mg tablet 500 mg PO BID PRN (Reason: pain) 10 Days Qty: 20 RF: 0 acetaminophen [Tylenol] 325 mg capsule 325 mg PO QID PRNRF: 0 ibuprofen 200 mg capsule 200 mg PO Q8H RF: 0 nystatin 100,000 unit/mL suspension 6 ml PO QID 10 Days Qty: 240 RF: 0 chlorhexidine gluconate 0.12 % mouthwash 15 ml buccal BID Qty: 473 RF: 2 Bevespi Aerosphere 9-4.8 mcg HFA aerosol inhaler 2 puff inhalation BID Qty: 10.7 RF: 3 fluconazole 100 mg tablet 100 mg PO DAILY Qty: 14 RF: 0 GlycoLax 17 gram/dose powder 17 g PO DAILY Qty: 238 RF: 0 Discharge Orders: Discharge ED (Routine); Ordered 04/10/21 Ordered By: Mely Raman Referrals: Nghia Campbell DO [Primary Care Provider] - Discharge Diet: Advance as tolerated Discharge Activity: Resume usual activity Patient Instructions: Vertigo (ED), Benign Paroxysmal Positional Vertigo (ED) Coding Level of Care Code ED 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
[2021-04-10 00:25] LABS: Basophils # 0.1 10^3/uL (0.0-0.1); Basophils % 0.7 %; Eosinophils # 0.1 10^3/uL (0.0-0.8); Eosinophils % 0.7 %; Hematocrit 42.8 % (37.0-47.0); Hemoglobin 14.6 g/dL (11.5-15.3); Lymphocytes # 3.6 10^3/uL (0.8-4.8); Lymphocytes % 26.8 %; Mean Corpuscular HGB Conc 34.1 g/dL (30.0-36.0); Mean Corpuscular Hemoglobin 27.8 pg (28.0-34.0); Mean Corpuscular Volume 81.4 fl (81-99); Mean Platelet Volume 9.1 fL (7.4-10.4); Monocytes # 0.9 10^3/uL (0.2-0.9); Monocytes % 6.4 %; Neutrophils # 8.81 10^3/uL (1.8-7.7); Neutrophils % 65.1 %; Nucleated Red Blood Cells % 0 %; Platelet Count 599 10^3/cmm (130-400); Red Blood Count 5.26 10^6/uL (4.1-5.3); Red Cell Distribution Width 14.1 % (12.1-15.1); White Blood Count 13.5 10^3/uL (4.0-10.0)
[2021-04-10 00:43] LABS: HCG, Serum Qual Negative (Negative)
[2021-04-10] MEDS: meclizine 25 mg tablet 50 MG PO (00:46)
[2021-04-10] MEDS: diazePAM 5 mg Tablet PO (00:46)
[2021-04-10 00:49] LABS: Alanine Aminotransferase < 5 U/L (0-33); Albumin Level 4.5 g/dL (3.5-5.2); Alkaline Phosphatase 138 IU/L (35-105); Anion Gap 19.8 (5-19); Aspartate Amino Transferase 12 U/L (0-32); Blood Urea Nitrogen 10 mg/dL (6-20); Calcium 8.7 mg/dL (8.5-10.5); Carbon Dioxide 19 mmol/L (22-29); Chloride 101 mmol/L (98-107); Globulin 3.5 g/dL (1.3-4.6); Glomerular Filtration Rate 93.2 mL/min (90-130); Glucose 102 mg/dL (65-115); Osmolality Calculated 281 mOsm/kg (285-295); Potassium 3.8 mmol/L (3.5-5.1); Sodium 136 mmol/L (136-145); Total Bilirubin 0.3 mg/dL (0.15-1.2)
[2021-04-10] MEDS: sodium chloride 0.9% 1,000 ML 999 ML IV (00:50)
[2021-04-10 00:52] VITALS: BP 116/82; PULSE 103; RESP 18; O2SAT 98
[2021-04-10 02:16] VITALS: BP 119/77; PULSE 91; RESP 18; O2SAT 97
== END 2021-04-10 02:00 | disposition home or self-care (01) ==
PROVIDERS: Emergency Provider Emergency Medicine; PCP Family Medicine
DX: R42 Dizziness and giddiness (principal); Z87.891 Personal history of nicotine dependence; Z77.29 Contact with and (suspected) exposure to other hazardous substances; J43.9 Emphysema, unspecified
CPT/HCPCS: 80053; 84703; 85025; 96360; 99283; J7030; J8597

== ENCOUNTER 2021-11-07 09:13 | Outpatient (CLI) | payer OTHER, SELFPAY ==
--- NOTE | 2021-11-07 09:54 | XR_ITS ---
WS: [id number] Exam: XR chest 2V* [id number] Date/Time of Exam: 11/07/2021 9:54 AM Reason For Exam: HX OF THORACOTOMY W/PARTIAL RESECTION OF RUL Comparison 07/23/2020. Large emphysematous bleb in the upper lobe of the right lung. Postoperative changes in the right uppe r lobe. The lungs are otherwise clear. There is pulmonary hyperinflation. Normal cardiomediastinal si lhouette. Bilateral apical pleural thickening. Bony structures are intact. XR/XR chest 2V* [id number] IMPRESSION: 1. Pulmonary hyperinflation which may indicate obstructive lung disease. 2. Prominent emphysematous bleb in the right upper lobe with postoperative vazquez ge. No acute process identified.
--- NOTE | 2021-11-07 14:32 | PFTS_ITS ---
Date of Study:11/07/21 Date of Dictation: MECHANICS: Forced vital capacity (FVC) is reduced. Forced expiratory volume in one second (FEV1) is reduced. FEV1/FVC is reduced. FLOW VOLUME LOOP: Reduced lateral lung volumes with significant scooping. LUNG VOLUMES: Not measured DIFFUSING CAPACITY FOR CARBON MONOXIDE: Normal. INTERPRETATION: The postbronchodilator spirometry is consistent with severe airflow obstruction. There is a significant postbronchodilator response. A component of restrictive lung disease cannot be ruled out in the absence of lung volume measurements. Gas exchange (DLCO) is normal. MTDD
== END 2021-11-07 09:14 | disposition home or self-care (01) ==
LOC: RT 09:13
PROVIDERS: PCP Family Medicine; Visit Provider Emergency Medicine
DX: Z02.71 Encounter for disability determination (principal)
CPT/HCPCS: 71046; 94060; 94729; J7611

== ENCOUNTER 2022-05-29 17:13 | Emergency (ER) | payer MEDICAID, SELFPAY ==
[2022-05-29] VITALS (33 sets, daily range): BP systolic 121–134; BP diastolic 76–99; PULSE 90–105; RESP 16–18; TEMP 36.8; O2SAT 94–100
--- NOTE | 2022-05-29 18:38 | XRR_ITS ---
PROCEDURE INFORMATION: Exam: XR Chest Exam date and time: 05/29/2022 6:45 PM Age: 42 years old Clinical indication: Dyspnea and fever; Additional info: Short of breath TECHNIQUE: Imaging protocol: Radiologic exam of the chest. Views: 2 views. COMPARISON: CR XR chest 2V* [id number] 11/07/2021 10:01 AM FINDINGS: Lungs: Upper right partial pneumonectomy changes. Stable right apical pneumatocele or bulla. The lungs otherwise are clear. No consolidation. Changes of emphysema. Pleural spaces: Unremarkable. No pleural effusion. No pneumothorax. Heart/Mediastinum: Unremarkable. No cardiomegaly. Bones/joints: Unremarkable. XR/XR chest 2V* [id number] IMPRESSION: Stable chest. No acute findings.
--- NOTE | 2022-05-29 18:40 | ED_ITS ---
HPI - SOB/Dyspnea General: Chief Complaint: Shortness of Breath/Dyspnea Stated Complaint: Low 02 and SOB Time Seen by Provider: 05/29/22 18:38 History of Present Illness: HPI Narrative: 42-year-old female comes in today with some increased shortness of breath and low pulse ox readings since yesterday. Patient does have a history of COPD, emphysema, and prior pneumothorax. Patient denies any fever or feelings of illness. Patient appears nontoxic. Patient appears in no pain. Associated symptoms: Reports chest pain; Deny fever(s) Review of Systems Const: Denies: fever(s) Card: Reports: chest pain Resp: Reports: dyspnea PFSH ED PFSH: Medical History Emphysema, unspecified Marijuana abuse Smoker Surgical History Status post chest tube placement right -- 05/2020 Family History Mother Atelectasis Social History Smoking and tobacco status: former smoker Quit status (tobacco): has quit using tobacco Year quit tobacco: 2020 Former quit date comment: Hx of 2-3 PPD x 27 Years Second hand smoke exposure: Yes Smoking risk assessment/counseling performed?: No Alcohol intake: current Alcohol intake frequency: holidays/special occasions only Counseling given: No Counseling given: No Lives independently: Yes Household members: spouse Marital status: Current occupational status: unemployed History of recent travel: No Current gender identity: Female Female Reproductive History: Date of last menstrual period: 03/04/21 Physical Exam Const: COMMON NORMALS: alert HENMT: COMMON NORMALS: normocephalic HEAD & SCALP: normocephalic MOUTH: Normal oral and palatal mucosa present Eye: GENERAL EYE: appearance normal, both eyes and all related structures Neck/C-Spine: COMMON NORMALS: full ROM Resp: COMMON NORMALS: normal respiratory effort AUSCULTATION: wheezes ins piratory wheezes Cardio: COMMON NORMALS: regular rate and regular rhythm RATE: regular rate RHYTHM: regular rhythm GI: COMMON NORMALS: Soft to palpation PALPATION: Yes Soft to palpation Back/Pelvis: COMMON NORMALS: thoracic and lumbar spine normal to inspection Extremity: COMMON NORMALS: no pedal edema Neuro: SENSORIUM/ORIENTATION: Yes alert Skin: COMMON NORMALS: turgor normal GENERAL SKIN EXAM: turgor normal Course Vital Signs: Vital signs: Vital Signs Temperature 98.3 F 05/29/22 17:32 Pulse Rate 105 H 05/29/22 17:32 Respiratory Rate 18 05/29/22 17:32 Blood Pressure 121/93 05/29/22 19:45 Pulse Oximetry 99 05/29/22 19:45 Oxygen Delivery Me thod 05/29/22 17:32 MDM - SOB/Dyspnea Medical Decision Making 42-year-old female comes in today for complaints of shortness of breath with chest discomfort. Patient has a history of emphysema and COPD. On exam patient has air movement throughout both lungs with wheezing on inspiration more noticeable on the right than the left. Heart rates regular. No edema is noted in the extremities. Vital signs are unremarkable except for some elevation in pulse at 105. Differential diagnosis includes not limited to pulmonary embolism, pneumothorax, anxiety, exacerbation of COPD, pneumonia. Chest x-ray was unremarkable. CBC noted some mild leukocytosis which seems to be chronic for patient. CMP was unremarkable. High sensitive troponin was in normal range, D-dimer was normal range. Suspect patient probably just has some inflammation secondary to her chronic lung disease. Recommend monitoring for worsening symptoms or high fever. Recommend follow-up with primary care as needed. Patient reported understanding agreed to plan. Lab Data 05/29/22 18:51 05/29/22 18:51 Labs/Radiology: Radiology Impressions Chest X-Ray 05/29/22 18:38 IMPRESSION: Stable chest. No acute findings. Laboratory Results WBC 13.5 10^3/uL (4.0-10.0) H 05/29/22 18:51 RBC 5.19 10^6/uL (4.1-5.3) 05/29/22 18:51 Hgb 14.3 g/dL (11.5-15.3) 05/29/22 18:51 Hct 44.4 % (37.0-47.0) 05/29/22 18:51 MCV 85.5 fl (81-99) 05/29/22 18:51 MCH 27.6 pg (28.0-34.0) L 05/29/22 18:51 MCHC 32.2 g/dL (30.0-36.0) 05/29/22 18:51 RDW 13.2 % (12.1-15.1) 05/29/22 18:51 Plt Count 652 10^3/cmm (130-400) H 05/29/22 18:51 MPV 9.8 fL (7.4-10.4) 05/29/22 18:51 Neut % (Auto) 65.2 % 05/29/22 18:51 Lymph % (Auto) 25.1 % 05/29/22 18:51 [place] % (Auto) 8.2 % 05/29/22 18:51 Eos % (Auto) 0.6 % 05/29/22 18:51 Baso % (Auto) 0.6 % 05/29/22 18:51 Neut # (Auto) 8.79 10^3/uL (1.8-7.7) H 05/29/22 18:51 Lymph # (Auto) 3.4 10^3/uL (0.8-4.8) 05/29/22 18:51 [place] # (Auto) 1.1 10^3/uL (0.2-0.9) H 05/29/22 18:51 Eos # (Auto) 0.1 10^3/uL (0.0-0.8) 05/29/22 18:51 Baso # (Auto) 0.1 10^3/uL (0.0-0.1) 05/29/22 18:51 Nucleated RBC % (auto) 0 % 05/29/22 18:51 Nucleated RBCs # 0.0 /100WBC 05/29/22 18:51 D-Dimer 0.50 ug/mIFEU (0-0.59) 05/29/22 18:51 Sodium 138 mmol/L (136-145) 05/29/22 18:51 Potassium 4.3 mmol/L (3.5-5.1) 05/29/22 18:51 Chloride 101 mmol/L (98-107) 05/29/22 18:51 Carbon Dioxide 24 mmol/L (22-29) 05/29/22 18:51 Anion Gap 17.3 (5-19) 05/29/22 18:51 BUN 8 mg/dL (6-20) 05/29/22 18:51 Creatinine 0.7 mg/dL (0.5-0.9) 05/29/22 18:51 GFR Calculation 92.2 mL/min (90-130) 05/29/22 18:51 Glucose 90 mg/dL (65-115) 05/29/22 18:51 Calculated Osmolality 284 mOsm/kg (285-295) L 05/29/22 18:51 Calcium 9.7 mg/dL (8.5-10.5) 05/29/22 18:51 Total Bilirubin 0.5 mg/dL (0.15-1.2) 05/29/22 18:51 AST 15 U/L (0-32) 05/29/22 18:51 ALT 11 U/L (0-33) 05/29/22 18:51 Alkaline Phosphatase 181 U/L (35-105) H 05/29/22 18:51 Troponin T Gen 5 ng/L 6 ng/L (0-10) 05/29/22 18:51 Total Protein 8.2 g/dL (6.6-8.7) 05/29/22 18:51 Albumin 4.3 g/dL (3.5-5.2) 05/29/22 18:51 Globulin 3.9 g/dL (1.3-4.6) 05/29/22 18:51 Imaging Data CXR: My impression: Missing right upper lobe, no acute abnormality. Radiologist's impression: Stable chest x-ray. EKG Data EKG 1: EKG Interpretation Date: 05/29/22 EKG interpretation time: 19:10 Prior EKG tracings: not available for review Interpretation: EKG shows sinus rhythm with a regular rate at [address] elevation or ectopy is noted. No prior exam was available for comparison at this time. Discharge Plan Discharge Patient Disposition: Home Clinical Impression: Acute dyspnea Emphysema lung Qualifiers: Emphysema type: unspecified Qualified Code(s): J43.9 - Emphysema, unspecified Condition: Stable Prescriptions: No Action naproxen 500 mg tablet 500 mg PO BID PRN (Reason: pain) 10 Days Qty: 20 0RF acetaminophen [Tylenol] 325 mg capsule 325 mg PO QID PRN ibuprofen 200 mg capsule 200 mg PO Q8H chlorhexidine gluconate 0.12 % mouthwash 15 ml buccal BID Qty: 473 2RF Rx Instructions: swish for 30 seconds then spit out. fluconazole 150 mg tablet 150 mg PO Q3D Qty: 2 0RF nystatin 100,000 unit/mL suspension 6 ml PO QID 10 Days Qty: 240 2RF Rx Instructions: swish and swallow fluticasone propion-salmeterol [Advair Diskus] 250-50 mcg/dose blister with device 1 inh inhalation BID Qty: 60 1RF Rx Instructions: NEEDS APPT PRIOR TO FURTHER REFILLS GlycoLax 17 gram/dose powder 17 g PO DAILY Qty: 238 0RF meclizine 50 mg tablet 50 mg PO BID PRN (Reason: dizziness) Qty: 30 0RF Discharge Orders: Discharge ED (Routine); Ordered 05/29/22 Ordered By: Kelvin Harris Referrals: Nghia Campbell DO [Primary Care Provider] - Discharge Diet: Usual diet Discharge Activity: Increase activity as tolerated Patient Instructions: Dyspnea (ED) Activity Restrictions/Additional Instructions: Follow-up with primary care as needed. Drink plenty of fluids. Continue with routine medications and treatments. Return to ER for high fever or worsening symptoms. Coding Level of Care Code ED Conservation Officer for Hermes Fwlilly Exam Comprehensive
--- NOTE | 2022-05-29 19:07 | ECG_ITS ---
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 Measurements Intervals [place] Rate: 90 P: 76 CO: 143 QRS: 59 QRSD: 106 T: 64 QT: 339 QTc: 416 Interpretive Statements SINUS RHYTHM POSSIBLE RIGHT ATRIAL ENLARGEMENT [0.25mV P-WAVE] INDETERMINATE AXIS INCOMPLETE RIGHT BUNDLE BRANCH BLOCK [90+ ms QRS DURATION, TERMINAL R IN V1/V2, 40+ ms S IN I/aVL/V4/V5/V6] Compared to ECG 03/22/2021 17:04:09 Sinus arrhythmia no longer present Electronically Signed On 05-29-2022 20:44:34 INTERNAL SALESPERSON by Alena Edwards M.D. [id number]
[2022-05-29 19:41] LABS: Basophils # 0.1 10^3/uL (0.0-0.1); Basophils % 0.6 %; Eosinophils # 0.1 10^3/uL (0.0-0.8); Eosinophils % 0.6 %; Hematocrit 44.4 % (37.0-47.0); Hemoglobin 14.3 g/dL (11.5-15.3); Lymphocytes # 3.4 10^3/uL (0.8-4.8); Lymphocytes % 25.1 %; Mean Corpuscular HGB Conc 32.2 g/dL (30.0-36.0); Mean Corpuscular Hemoglobin 27.6 pg (28.0-34.0); Mean Corpuscular Volume 85.5 fl (81-99); Mean Platelet Volume 9.8 fL (7.4-10.4); Monocytes # 1.1 10^3/uL (0.2-0.9); Monocytes % 8.2 %; Neutrophils # 8.79 10^3/uL (1.8-7.7); Neutrophils % 65.2 %; Nucleated Red Blood Cells % 0 %; Platelet Count 652 10^3/cmm (130-400); Red Blood Count 5.19 10^6/uL (4.1-5.3); Red Cell Distribution Width 13.2 % (12.1-15.1); White Blood Count 13.5 10^3/uL (4.0-10.0)
[2022-05-29 20:07] LABS: Troponin T (5th) Once 6 ng/L (0-10)
[2022-05-29 20:09] LABS: Alanine Aminotransferase 11 U/L (0-33); Albumin Level 4.3 g/dL (3.5-5.2); Alkaline Phosphatase 181 U/L (35-105); Anion Gap 17.3 (5-19); Aspartate Amino Transferase 15 U/L (0-32); Blood Urea Nitrogen 8 mg/dL (6-20); Calcium 9.7 mg/dL (8.5-10.5); Carbon Dioxide 24 mmol/L (22-29); Chloride 101 mmol/L (98-107); Globulin 3.9 g/dL (1.3-4.6); Glomerular Filtration Rate 92.2 mL/min (90-130); Glucose 90 mg/dL (65-115); Osmolality Calculated 284 mOsm/kg (285-295); Potassium 4.3 mmol/L (3.5-5.1); Sodium 138 mmol/L (136-145); Total Bilirubin 0.5 mg/dL (0.15-1.2); Total Protein 8.2 g/dL (6.6-8.7)
== END 2022-05-29 21:13 | disposition home or self-care (01) ==
PROVIDERS: Emergency Provider Nurse Practitioner Family; PCP Family Medicine
DX: J43.9 Emphysema, unspecified (principal); Z87.891 Personal history of nicotine dependence
CPT/HCPCS: 71046; 80053; 84484; 85025; 85378; 93005; 99285

== ENCOUNTER → 2022-08-18 12:05 | Outpatient (BNVA) | payer MEDICAID, SELFPAY | PROVIDERS: PCP Family Medicine; Visit Provider Internal Medicine Pulmonary Disease | DX: T78.40XA Allergy, unspecified, initial encounter (principal); R07.9 Chest pain, unspecified; J43.9 Emphysema, unspecified | CPT/HCPCS: 36415; 71046; 82785; 86003 ==

== ENCOUNTER → 2022-09-17 14:12 | Outpatient (BNVA) | payer MEDICAID, SELFPAY | PROVIDERS: PCP Family Medicine; Visit Provider Nurse Practitioner Family | DX: R74.8 Abnormal levels of other serum enzymes (principal) | CPT/HCPCS: 80053 ==

== ENCOUNTER 2022-10-14 21:39 | Emergency (ER) | payer MEDICAID, SELFPAY ==
[2022-10-14] VITALS (7 sets, daily range): BP systolic 114–128; BP diastolic 71–90; PULSE 99–127; RESP 15–22; TEMP 36.6; O2SAT 97–100; BMI 26.9
--- NOTE | 2022-10-14 22:11 | XRR_ITS ---
PROCEDURE INFORMATION: Exam: XR Chest Exam date and time: 10/14/2022 10:41 PM Age: 42 years old Clinical indication: Shortness of breath; Prior surgery; Surgery date: 6+ months; Surgery type: Lung; Additional info: SOB TECHNIQUE: Imaging protocol: Radiologic exam of the chest. Views: 1 view. COMPARISON: CR XR chest 2V* [id number] 08/18/2022 12:24 PM FINDINGS: Lungs: Right apical bulla again seen with suggestion of increased wall thickening, CT could further evaluate this. Emphysematous changes. Pleural spaces: Unremarkable. No pleural effusion. No pneumothorax. Heart/Mediastinum: Unremarkable. No cardiomegaly. Bones/joints: Unremarkable. XR/XR chest 1V portable [id number] IMPRESSION: 1. Right apical bulla again seen with suggestion of increased wall thickening, CT could further evaluate this. 2. Emphysematous changes.
[2022-10-14 22:43] LABS: Basophils # 0.1 10^3/uL (0.0-0.1); Basophils % 0.4 %; Eosinophils # 0.2 10^3/uL (0.0-0.8); Eosinophils % 1.1 %; Hematocrit 38.4 % (37.0-47.0); Hemoglobin 12.3 g/dL (11.5-15.3); Lymphocytes # 4.6 10^3/uL (0.8-4.8); Lymphocytes % 26.6 %; Mean Corpuscular Hemoglobin 26.6 pg (28.0-34.0); Mean Corpuscular Volume 82.9 fl (81-99); Mean Platelet Volume 8.5 fL (7.4-10.4); Monocytes # 1.3 10^3/uL (0.2-0.9); Monocytes % 7.6 %; Neutrophils # 10.95 10^3/uL (1.8-7.7); Neutrophils % 63.8 %; Nucleated Red Blood Cells % 0 %; Platelet Count 734 10^3/cmm (130-400); Red Blood Count 4.63 10^6/uL (4.1-5.3); Red Cell Distribution Width 13.7 % (12.1-15.1); White Blood Count 17.2 10^3/uL (4.0-10.0)
--- NOTE | 2022-10-14 22:51 | ECG_ITS ---
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 Measurements Intervals [place] Rate: 107 P: 74 IA: 128 QRS: 64 QRSD: 107 T: 65 QT: 332 QTc: 444 Interpretive Statements SINUS TACHYCARDIA POSSIBLE LEFT ATRIAL ENLARGEMENT [-0.1mV P-WAVE IN V1/V2] INCOMPLETE RIGHT BUNDLE BRANCH BLOCK [90+ ms QRS DURATION, TERMINAL R IN V1/V2, 40+ ms S IN I/aVL/V4/V5/V6] ABNORMAL RHYTHM ECG Compared to ECG 05/29/2022 19:07:22 Sinus rhythm no longer present Indeterminate axis no longer present Electronically Signed On 10-15-2022 8:13:17 CDT by Rosalina Holloway M.D. [id number]
--- NOTE | 2022-10-14 22:58 | ED_ITS ---
HPI - SOB/Dyspnea General: Chief Complaint: Shortness of Breath/Dyspnea Stated Complaint: sob light chest pain Time Seen by Provider: 10/14/22 22:58 History of Present Illness: HPI Narrative: 42-year-old lady with history of emphysema and asthma presented to the emergency department for shortness of breath and cough as well as chest discomfort. Notes onset of symptoms yesterday evening it was gradual after being out in the warm air. Notes productive cough and itchy throat associated with mild left lower and left upper chest discomfort. Cough has been mildly productive. Moderate intensity symptoms. Not significantly relieved by home albuterol/MDI treatments. Denies history of long immobilization, no leg swelling or history of DVT/blood clots. No other specific changes in health, exacerbating, or alleviating factors identified. Onset (ago): day(s) Context: other Severity: moderate Known history of: COPD and asthma Review of Systems General: Reports: 10 or more systems reviewed and unremarkable except in HPI and below PFSH ED PFSH: Medical History Emphysema, unspecified Marijuana abuse Smoker Surgical History Status post chest tube placement right -- 05/2020 Family History Mother Atelectasis Social History Smoking and tobacco status: former smoker Quit status (tobacco): has quit using tobacco Year quit tobacco: 2020 Former quit date comment: Hx of 2-3 PPD x 27 Years Second hand smoke exposure: Yes Smoking risk assessment/counseling performed?: No Alcohol intake: current Alcohol intake frequency: holidays/special occasions only Counseling given: No Substance/Drug Use: former Date of last use: 2020 Counseling given: No Lives independently: Yes Household members: spouse Marital status: Current occupational status: unemployed Do you think of yourself as: Straight/Heterosexual Current gender identity: Female Physical Exam Const: COMMON NORMALS: alert GENERAL APPEARANCE: cooperative and well developed HENMT: COMMON NORMALS: normocephalic and atraumatic HEAD & SCALP: normocephalic and atraumatic THROAT: posterior oropharynx normal Eye: COMMON NORMALS: conjunctivae normal CONJUNCTIVA: Yes conjunctivae normal SCLERA: sclerae normal Neck/C-Spine: COMMON NORMALS: supple GENERAL: Yes trachea midline Resp: EFFORT & INSPECTION: Yes able to speak in complete sentences AUSCULTATION: wheezes and diminished lung sounds Cardio: COMMON NORMALS: regular rhythm RATE: tachycardic RHYTHM: regular rhythm GI: COMMON NORMALS: Soft to palpation PALPATION: Yes Soft to palpation and No Tenderness to palpation present (GI) Extremity: GENERAL: Yes normal exam except as noted and No edema Neuro: COMMON NORMALS: moves all extremities SENSORIUM/ORIENTATION: Yes alert and No Orientation impaired Psych: COMMON NORMALS: mental status grossly normal and Normal thought process present THOUGHT PROCESS: Normal thought process present Course Vital Signs: Vital signs: Vital Signs Temperature 97.8 F 10/14/22 22:01 Pulse Rate 99 10/15/22 01:00 Respiratory Rate 16 10/15/22 01:00 Blood Pressure 103/75 10/15/22 01:00 Pulse Oximetry 97 10/15/22 01:00 Oxygen Delivery Me thod Room Air 10/15/22 01:00 MDM - SOB/Dyspnea Medical Decision Making 42-year-old lady presenting with known history of emphysema/asthma with shortness of breath and chest pain. Exam as above. Patient is nontoxic. Will clinical suspicion for thromboembolic event. EKG demonstrates sinus tachycardia with normal axis and intervals, no STEMI Labs with leukocytosis, normal hemoglobin, thrombocytosis also noted. Metabolic panel without acute derangement. Troponin is negative for greater than 6 hours of symptoms. COVID-negative. Chest x-ray with no lobar consolidation or pneumothorax. Right apical bulla again noted. Patient will significantly proved with steroids, fluids, RT treatment, and antib iotics for exacerbation of COPD. Clinically she appears well. The results of ED evaluation were discussed with the patient including prescriptions and/or symptomatic cares (if applicable) including appropriate and responsible use, followup plan, and return precautions. The patient verbalized understanding and felt safe for discharge. Medical Records I reviewed the patient's medical records. Lab Data I reviewed the patient's lab results. 10/14/22 22:33 10/14/22 22:33 Labs/Radiology: Radiology Impressions Chest X-Ray 10/14/22 22:11 IMPRESSION: 1. Right apical bulla again seen with suggestion of increased wall thickening, CT could further evaluate this. 2. Emphysematous changes. Laboratory Results WBC 17.2 10^3/uL (4.0-10.0) H 10/14/22 22: RBC 4.63 10^6/uL (4.1-5.3) 10/14/22 22: Hgb 12.3 g/dL (11.5-15.3) 10/14/22 22: Hct 38.4 % (37.0-47.0) 10/14/22 22: MCV 82.9 fl (81-99) 10/14/22 22: MCH 26.6 pg (28.0-34.0) L 10/14/22 22: MCHC 32.0 g/dL (30.0-36.0) 10/14/22: RDW 13.7 % (12.1-15.1) 10/14/22: Plt Count 734 10^3/cmm (130-400) H 10/14/22 22: MPV 8.5 fL (7.4-10.4) 10/14/22 22: Neut % (Auto) 63.8 % 10/14/22 22: Lymph % (Auto) 26.6 % 10/14/22 22: [place] % (Auto) 7.6 % 10/14/22: Eos % (Auto) 1.1 % 10/14/22: Baso % (Auto) 0.4 % 10/14/22: Neut # (Auto) 10.95 10^3/uL (1.8-7.7) H 10/14/22: Lymph # (Auto) 4.6 10^3/uL (0.8-4.8) 10/14/22 22: [place] # (Auto) 1.3 10^3/uL (0.2-0.9) H 10/14/22: Eos # (Auto) 0.2 10^3/uL (0.0-0.8) 10/14/22: Baso # (Auto) 0.1 10^3/uL (0.0-0.1) 10/14/22: Nucleated RBC % (auto) 0 % 10/14/22: Nucleated RBCs # 0.0 /100WBC 10/14/22 22:33 Sodium 137 mmol/L (136-145) 10/14/22 22:33 Potassium 4.1 mmol/L (3.5-5.1) 10/14/22 22:33 Chloride 101 mmol/L (98-107) 10/14/22 22:33 Carbon Dioxide 26 mmol/L (22-29) 10/14/22 22:33 Anion Gap 14.1 (5-19) 10/14/22 22:33 BUN 11 mg/dL (6-20) 10/14/22 22:33 Creatinine 0.8 mg/dL (0.5-0.9) 10/14/22 22:33 GFR Calculation 79.0 mL/min (90-130) L 10/14/22 22:33 Glucose 106 mg/dL (65-115) 10/14/22 22:33 Calculated Osmolality 284 mOsm/kg (285-295) L 10/14/22 22:33 Calcium 9.0 mg/dL (8.5-10.5) 10/14/22 22:33 Troponin T Baseline 6 ng/L (0-10) 10/14/22 22:33 SARS-CoV-2 Ag (Rapid) negative (Negative) 10/14/22 23:30 Discharge Plan Discharge Patient Disposition: Home Clinical Impression: Acute exacerbation of chronic obstructive airways disease Condition: Stable Prescriptions: New albuterol sulfate 90 mcg/actuation HFA aerosol inhaler 2 inh inhalation Q4H PRN (Reason: shortness of breath or wheezing) Qty: 8.5 0RF No Action acetaminophen [Tylenol] 325 mg capsule 325 mg PO QID PRN ibuprofen 200 mg capsule 200 mg PO Q8H PRN meclizine 25 mg tablet 25 mg PO BID PRN albuterol sulfate [Ventolin HFA] 90 mcg/actuation HFA aerosol inhaler 1 inh inhalation QID PRN (Reason: shortness of breath or wheezing) Qty: 8.5 3RF montelukast [Singulair] 10 mg tablet 10 mg PO DAILY Qty: 90 0RF nystatin 100,000 unit/mL suspension 6 ml PO QID 10 Days Qty: 240 2RF Rx Instructions: swish and swallow clindamycin HCl 300 mg capsule 300 mg PO Q6H 10 Days Qty: 40 0RF acyclovir [Zovirax] 5 % cream 1 applic topical .5xday 4 Days Qty: 5 1RF fluticasone propion-salmeterol [Advair Diskus] 250-50 mcg/dose blister with device 1 inh inhalation BID Qty: 60 3RF Rx Instructions: NEEDS APPT PRIOR TO FURTHER REFILLS Discharge Orders: Discharge ED (Routine); Ordered 10/15/22 Ordered By: Shelton Porter Referrals: Nghia Campbell, [Primary Care Provider] - Discharge Diet: Usual diet Discharge Activity: Increase activity as tolerated Patient Instructions: COPD (Chronic Obstructive Pulmonary Disease) (ED), Shortness of Breath (ED) Activity Restrictions/Additional Instructions: Thank you for visiting the emergency department. You were seen and evaluated for shortness of breath. The most likely cause of your symptoms is related to exacerbation of underlying lung disease. We are pleased that you had improvement from ED treatment. I will prescribe steroids and antibiotics. Please also use your albuterol metered-dose inhaler 2 puffs every 4 hours for 24 hours followed by 2 puffs every 6 hours for 24 hours followed by 2 puffs every 8 hours for 24 hours and then return to the normal schedule. Please follow-up with your primary care provider. Return to the emergency department for chest pain, worsening shortness of breath, or anything that you are concerned about and feel needs emergency room evaluation. Coding Level of Care Code ED Music Supervisor for Hermes Abrams
[2022-10-14 23:00] LABS: Troponin(5th) Baseline 6 ng/L (0-10)
[2022-10-14 23:01] LABS: Anion Gap 14.1 (5-19); Blood Urea Nitrogen 11 mg/dL (6-20); Carbon Dioxide 26 mmol/L (22-29); Chloride 101 mmol/L (98-107); Glucose 106 mg/dL (65-115); Osmolality Calculated 284 mOsm/kg (285-295); Potassium 4.1 mmol/L (3.5-5.1); Sodium 137 mmol/L (136-145)
[2022-10-14] MEDS: ipratropium-albuterol 3 mL Neb INHALATION (23:13)
[2022-10-14 23:24] LABS: Slide Review Slide Review Perform
[2022-10-14] MEDS: predniSONE 20 mg Tablet 60 MG PO (23:25)
[2022-10-14] MEDS: sodium chloride 0.9% 1,000 ML 999 ML IV (23:25)
[2022-10-14] MEDS: albuterol 2.5 mg/3 mL Neb INHALATION (23:48)
[2022-10-14 23:54] LABS: SARS Covid-2 Antigen negative (Negative)
--- NOTE | 2022-10-15 00:12 | ECG_ITS ---
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 Measurements Intervals [place] Rate: 92 P: 80 ND: 132 QRS: 31 QRSD: 110 T: 48 QT: 337 QTc: 418 Interpretive Statements SINUS RHYTHM Compared to ECG 10/14/2022 22:51:42 Sinus tachycardia no longer present Incomplete right bundle-branch block no longer present Electronically Signed On 10-15-2022 8:21:39 CDT by Rosalina Holloway M.D. [id number]
[2022-10-15] MEDS: doxycycline 100 mg Tablet PO (00:51)
[2022-10-15] MEDS: cefTRIAXone 1,000 MG in sodium chloride 0.9% (plus) 50 ML 100 MG IV (00:51)
[2022-10-15 01:00] VITALS: BP 103/75; PULSE 99; RESP 16; O2SAT 97
== END 2022-10-15 01:36 | disposition home or self-care (01) ==
PROVIDERS: Emergency Medicine; Emergency Provider Emergency Medicine; PCP Family Medicine
DX: J44.1 Chronic obstructive pulmonary disease with (acute) exacerbation (principal); Z20.822 Contact with and (suspected) exposure to COVID-19; Z87.891 Personal history of nicotine dependence
CPT/HCPCS: 71045; 80048; 84484; 85025; 87426; 93005; 94640; 96365; 99285; J0696; J7030; J7512; J7613

== ENCOUNTER 2022-10-20 08:38 | Outpatient (CLI) | payer MEDICAID, SELFPAY ==
--- NOTE | 2022-10-20 08:45 | US_ITS ---
WS: [id number] ULTRASOUND ABDOMEN LIMITED CLINICAL INFORMATION: R74.8 - Abnormal levels of other serum enzymes COMPARISON: None. FINDINGS: Liver Size: Normal. Craniocaudal length: 14.8 cm. Echogenicity: Normal. Surface nodularity: None. Mass (size and location): None. Bile ducts Intrahepatic ducts: Normal. Common bile duct diameter: 0.5 cm. Gallbladder Normal. Gallstones: None. Gallbladder sludge: None. Gallbladder wall thickening: None. Pericholecystic fluid: None. Sonographic [place] sign: Absent. Pancreas Normal as visualized. Right kidney: Normal. Hydronephrosis: None. Size: 10.3 cm x 4.5 cm x 4.0 cm. Abdominal aorta and IVC Visualized portions are normal. Ascites: None. US/US liver [id number] IMPRESSION: Normal abdominal ultrasound
== END 2022-10-20 08:39 | disposition home or self-care (01) ==
LOC: RAD 08:40
PROVIDERS: PCP Family Medicine; Visit Provider Nurse Practitioner Family
DX: R74.8 Abnormal levels of other serum enzymes (principal)
CPT/HCPCS: 76705

== ENCOUNTER → 2022-10-30 14:54 | Outpatient (BNVA) | payer MEDICAID, SELFPAY | PROVIDERS: PCP Family Medicine; Visit Provider Nurse Practitioner Family | DX: N92.6 Irregular menstruation, unspecified (principal); R74.8 Abnormal levels of other serum enzymes | CPT/HCPCS: 81025; 82977 ==

== ENCOUNTER → 2022-12-05 16:16 | Outpatient (BNVA) | payer MEDICAID, SELFPAY | PROVIDERS: PCP Family Medicine; Visit Provider Nurse Practitioner Family | DX: R74.8 Abnormal levels of other serum enzymes (principal); K02.9 Dental caries, unspecified; K04.7 Periapical abscess without sinus | CPT/HCPCS: 84439; 84443; 84480 ==

== ENCOUNTER 2023-01-08 08:56 | Outpatient (CLI) | payer MEDICAID, SELFPAY ==
--- NOTE | 2023-01-08 09:00 | CT_ITS ---
WS: [id number] CT chest w con* [id number] HISTORY: J43.9 - Emphysema, unspecified TECHNIQUE: Axial imaging performed through the thorax. Coronal and sagittal reformats are submitted. All CT scans at [facility] use at least one of these dose optimization techniques: automated exposure control; mA and/or kV adjustment per patient size (includes targeted exams where dose is mat ched to clinical indication); or iterative reconstruction. CONTRAST: Omnipaque 350; 100 mL IV. DLP: 198.36 mGy.cm COMPARISON: 06/12/2020 Lungs and central airway: Hyperinflated lungs. Slight volume loss and postsurgical changes at the RIG HT apex. There is pleural thickening and surgical sutures with large bulla. No mass. RIGHT lower lobe pulmonary nodules with the largest measuring 3.6 mm or not present on the prior exam. LEFT lung is c lear. Pleura: Normal. No pleural effusion. Heart and pericardium: Normal size heart with no pericardial effusion. Mediastinum and leanne: Small hilar lymph nodes with the largest measuring 10 mm. Similar in appearance to the prior exam. No adenopathy. Vessels: Normal size aortic and pulmonary artery. No coronary artery calcifications. Chest wall and lower neck: There are numerous solid masses in the RIGHT breast. These masses have inc reased in size and number since 2020. Biopsies have been recommended and/or surgical removal. Conside r follow-up by mammography and ultrasound. Upper abdomen: Moderate-sized hiatal hernia. No adrenal mass. Blush like area of enhancement in the R IGHT hepatic lobe is probably a small hemangioma measuring 1.5 cm. Osseous structures: No destructive process. IMPRESSION: 1. Postsurgical changes RIGHT upper lobe with partial lobectomy. 2. RIGHT lower lobe pulmonary nodules with the largest measuring 3.6 mm. Recommend follow-up chest CT in 6 months. 3. Numerous solid masses in the RIGHT breast have increased in size and number since the prior chest CT of 06/12/2020. Prior mammograms from 2016 demonstrated soft tissue masses which were thought to be fibroadenomas. Biopsy recommended at that time. No recent mammograms. Recommend diagnostic mammogram and ultrasound. 4. Moderate size hiatal hernia and RIGHT hepatic hemangioma.
[2023-01-08] MEDS: iohexol 350 mg/mL 500 mL Btl (per mL) IV (09:15)
== END 2023-01-08 08:57 | disposition home or self-care (01) ==
PROVIDERS: PCP Family Medicine; Visit Provider Nurse Practitioner Family
DX: J43.9 Emphysema, unspecified (principal); Z90.2 Acquired absence of lung [part of]; R91.8 Other nonspecific abnormal finding of lung field; N63.10 Unspecified lump in the right breast, unspecified quadrant; K44.9 Diaphragmatic hernia without obstruction or gangrene
CPT/HCPCS: 71260; Q9967

== ENCOUNTER 2023-01-12 13:48 | Outpatient (CLI) | payer MEDICAID, SELFPAY ==
--- NOTE | 2023-01-12 13:56 | MM_ITS ---
WS: [id number] BILATERAL 3D TOMOSYNTHESIS DIGITAL DIAGNOSTIC MAMMOGRAPHY WITH CAD CLINICAL INFORMATION: RT BR LUMP COMPARISON: 2016 TECHNIQUE: Bilateral CC, MLO, and ML views. FINDINGS: The breasts are composed of heterogeneous fibroglandular density, which can limit the detection of sm all underlying mass lesions. Again seen are lobulated and ovoid nodules within the RIGHT breast previ ously demonstrated represent fibroadenomas. Largest nodules today measure 1.9 x 1.5 near the 11 o'patrick ck position and 2.5 x 2.0 cm near the 5 o'clock position. Ultrasound is pending. LEFT breast appears unremarkable. ULTRASOUND BREAST RIGHT TECHNIQUE: Ultrasound right breast focused area of concern. CLINICAL INFORMATION: RT BR LUMP FINDINGS: Ultrasound RIGHT breast the 11:00 and 5:00 positions. Again seen are hypoechoic nodules RIGHT breast at the 11 o'clock position 4 cm from the nipple measuring 1.9 x 2.9 x 1.5 cm. This is increased sligh tly compared to previous where it measured 1.3 x 2.4 x 2.1 cm. In addition, hypoechoic slightly lobulated nodule at the 5 o'clock position 1 cm from the nipple toda y measuring 3.2 x 3.1 x 2.2 cm. This is increased in size compared to previous where it measured 1.4 x 1.3 x 0.7 cm. Findings most likely represent fibroadenomas. 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 These could be biopsied under ultrasound guidance for confirmation if desired. Hao rajeev recommend annual screening mammography. MM/[place] [id number] BI-RADS: 2-Benign FOLLOW UP: 1 Year Follow-up Recommend return to annual screening mammography.
== END 2023-01-12 13:49 | disposition home or self-care (01) ==
PROVIDERS: PCP Family Medicine; Visit Provider Nurse Practitioner Family
DX: N63.11 Unspecified lump in the right breast, upper outer quadrant (principal); N63.14 Unspecified lump in the right breast, lower inner quadrant
CPT/HCPCS: 76642; 77062; G0279

== ENCOUNTER → 2023-01-21 13:38 | Outpatient (BNVA) | payer MEDICAID, SELFPAY | PROVIDERS: PCP Family Medicine; Visit Provider Nurse Practitioner Family | DX: R50.9 Fever, unspecified (principal); R53.83 Other fatigue | CPT/HCPCS: 87400; 87426 ==

== ENCOUNTER 2023-07-16 12:51 | Outpatient (CLI) | payer MEDICAID, SELFPAY ==
--- NOTE | 2023-07-16 12:53 | CT_ITS ---
WS: [id number] CT chest w con* [id number] HISTORY: FOLLOW UP PULMONARY NODULES TECHNIQUE: Axial imaging performed through the thorax. Coronal and sagittal reformats are submitted. All CT scans at [facility] use at least one of these dose optimization techniques: automated exposure control; mA and/or kV adjustment per patient size (includes targeted exams where dose is mat ched to clinical indication); or iterative reconstruction. CONTRAST: Omnipaque 350; 100 mL IV. DLP: 276.06 mGy.cm COMPARISON: 01/08/2023, 06/12/2020 Lungs and central airway: Partial RIGHT upper lobectomy. Stable postsurgical changes at the RIGHT upp er lobe. There is scarring and a large bulla with fibrosis and slight retraction. Advanced centrilobu lar emphysema. New opacification in the RIGHT middle lobe. Subsolid and solid components with the opa cification measuring 2.0 x 1.9 cm. Seen best on the sagittal reformat. Previously described nodules i n the RIGHT lower lobe have resolved. These are probably related to endobronchial pneumonia. No mass. Pleura: Normal. No pleural effusion. Heart and pericardium: Normal size heart with no pericardial effusion. Mediastinum and leanne: No mediastinum or hilar adenopathy. Vessels: Normal size aortic and pulmonary artery. No coronary artery calcifications. Chest wall and lower neck: Reidentified well-circumscribed masses in the RIGHT breast. The largest me asures 2.9 x 2.5 cm. These were recently evaluated by mammography and ultrasound on 01/12/2023. These have been stable for several years with no increase in size since the most recent exam. Upper abdomen: Moderate hiatal hernia. Hypervascular nodule central liver measuring 10 x 9 mm consist ent with a hemangioma. Gallbladder is collapsed. No adrenal mass. Osseous structures: No destructive process. IMPRESSION: 1. Partial RIGHT upper lobectomy is stable. 2. Interval resolution of the small, subcentimeter nodules in the RIGHT lower lobe since 01/08/2023. These are probably postinflammatory and related to pneumonia. 3. New mixed opacification in the RIGHT middle lobe measures 2.0 x 1.9 cm. Most likely pneumonia. Re commend follow-up chest CT in 3 months after treatment to ensure resolution. 4. Moderate emphysema. 5. Stable RIGHT hepatic hemangioma. 6. Stable RIGHT breast masses. Please refer to mammogram and ultrasound reports from 01/12/2023.
[2023-07-16] MEDS: iohexol 350 mg/mL 500 mL Btl (per mL) IV (13:21)
== END 2023-07-16 12:52 | disposition home or self-care (01) ==
LOC: RAD 12:51
PROVIDERS: PCP Family Medicine; Visit Provider Nurse Practitioner Family
DX: M25.511 Pain in right shoulder (principal); M25.611 Stiffness of right shoulder, not elsewhere classified; R91.1 Solitary pulmonary nodule; J43.2 Centrilobular emphysema; Z90.2 Acquired absence of lung [part of]; K44.9 Diaphragmatic hernia without obstruction or gangrene; D18.03 Hemangioma of intra-abdominal structures
CPT/HCPCS: 71260; Q9967

== ENCOUNTER 2023-07-25 12:44 | Emergency (ER) | payer MEDICAID, SELFPAY ==
[2023-07-25 12:51] VITALS: BMI 27.3
[2023-07-25 12:52] VITALS: BP 130/88; PULSE 114; RESP 16; TEMP 36.3; O2SAT 100
--- NOTE | 2023-07-25 13:33 | ED_ITS ---
Documented by User: VINCENT Skinner 07/25/23 15:26 HPI - Extremity Problem 2 General: Chief complaint: Extremity Problem,Nontraumatic Stated complaint: Right foot pain Time Seen by Provider: 07/25/23 12:59 Source: patient Mode of arrival: ambulatory Limitations: no limitations History of Present Illness: Patient is a 43-year-old female presents to the emergency department complaining of bilateral foot pain onset 1 day. Patient states being recently diagnosed with bacterial pneumonia as an outpatient, and prescribed Levaquin. She also notes a thrush/vaginal yeast infection in which she was prescribed fluconazole. She reports that on she took both medications at the same time and got really sick, so she stopped taking fluconazole. She notes no issues until the following day (yesterday) she developed bilateral foot pain. She also notes her right pain is swollen and red. She is now complaining of some numbness spreading proximally as well as some calf pain. Patient states she feels better overall, but is still having a productive cough and gets periodically short of breath. She denies any fevers, dizziness, nausea/vomiting, bowel changes, urinary symptoms, or any other symptoms. Associated symptoms: Deny chest pain or fever(s) Review of Systems 2 General: Reports: 10 or more systems reviewed and unremarkable except in HPI and below Const: Denies: fever(s), chills or fatigue Eyes: Denies: change in vision ENMT: Denies: throat pain Card: Denies: chest pain, palpitations or lightheadedness Resp: Reports: dyspnea and productive cough; Denies: wheezing GI: Denies: abdominal pain, nausea, vomiting, diarrhea, constipation or change in bowel habits : Denies: flank pain, difficulty voiding, dysuria or hematuria Musc: Reports: extremity pain (Bilateral feet, right worse than left), extremity swelling (Right foot) and other (Right calf pain); Denies: neck pain, back pain or joint pain Skin/Breast: Reports: erythema (Right foot) Neuro: Reports: numbness in extremities (Right lower extremity) and sensory changes (Right lower EXTR); Denies: headache(s) PFSH ED 2 PFSH: Medical History Emphysema, unspecified Marijuana abuse Smoker Surgical History Status post chest tube placement right -- 05/2020 Family History Mother Atelectasis Social History Smoking and tobacco/nicotine status: former use of tobacco/nicotine Quit status (tobacco/nicotine): has quit using Year quit tobacco: 2020 Former quit date comment: Hx of 2-3 PPD x 27 Years Second hand smoke exposure: Yes Alcohol intake: current Alcohol intake frequency: holidays/special occasions only Substance/Drug Use: former Date of last use: 2020 Lives independently: Yes Household members: spouse Marital status: Current occupational status: unemployed Do you think of yourself as: Straight/Heterosexual Current gender identity: Female Female Reproductive History: Date of last menstrual period: 07/08/23 Physical Exam 2 Const: COMMON NORMALS: no acute distress, average body habitus, patient oriented x3, no limitations, healthy appearing and alert GENERAL APPEARANCE: cooperative and comfortable ORIENTATION/CONSCIOUSNESS: Yes awake HENMT: COMMON NORMALS: normocephalic, hearing grossly normal bilaterally, external ears normal, EAC's normal, Normal nasal mucous membranes and turbinates present, moist oral mucous membranes and oropharynx normal HEAD & SCALP: n ormocephalic NOSE: Normal nasal mucous membranes and turbinates present E XTERNAL EAR: Yes external ears normal EXTERNAL AUDITORY CANAL: EAC's normal Eye: COMMON NORMALS: EOMs intact bilaterally and conjunctivae normal C ONJUNCTIVA: Yes conjunctivae normal Neck/C-Spine: COMMON NORMALS: full ROM Resp: COMMON NORMALS: normal respiratory effort, No retractions, No use of accessory muscles and clear to auscultation bilaterally AUSCULTATION: clear to auscultation bilaterally Cardio: COMMON NORMALS: regular rate, regular rhythm, S1 normal heart sound present, S2 normal heart sound present, No gallops present (Cardio), No clicks present (Cardio), No murmurs present (Cardio), No rub (Cardio) and Peripheral pulses 2+ throughout RATE: regular rate RHYTHM: regular rhythm HEART SOUNDS: S1 normal heart sound present and S2 normal heart sound present P ERIPHERAL PULSES: Peripheral pulses 2+ throughout Extremity: COMMON NORMALS: full ROM NARRATIVE EXTREMITY EXAM: There is mild amount of erythema and swelling noted to the lateral aspect of the right foot. There is a central bullous lesion noted just proximal to the fifth toe. There is surrounding erythema of this lesion, and foot is moderately tender to the touch. Diminished sensation to the right lower extremity, with palpable pulses. Mild right calf tenderness to palpation. Calf normal to inspection. Left foot normal to inspection, however there is also mild tenderness to palpation of the lateral aspect. Neuro: COMMON NORMALS: patient oriented x3, moves all extremities and no focal motor deficits SENSORIUM/ORIENTATION: Yes alert Psych: COMMON NORMALS: mental status grossly normal Skin: COMMON NORMALS: no wounds and turgor normal GENERAL SKIN EXAM: turgor normal Course 2 Vital Signs: Vital signs: Vital Signs Temperature 97.4 F L 07/25/23 15:27 Pulse Rate 95 07/25/23 15:27 Respiratory Rate 16 07/25/23 15:27 Blood Pressure 132/86 07/25/23 15:27 Pulse Oximetry 100 07/25/23 15:27 Oxygen Delivery Me thod Room Air 07/25/23 12:52 MDM - Extremity (Nontraumatic) Medical Decision Making Patient was seen in the emergency department today for 1 day of bilateral foot pain, and some redness and swelling in the right foot. Patient has 1 day left on her prescription for Levaquin for recent bacterial pneumonia. Pulse elevated, but otherwise vitals were normal on arrival. Patient's right foot on examination was minimally swollen to the lateral aspect with a bullous lesion with surrounding erythema noted. She was also complaining of some new calf pain and lower extremity numbness/tingling. Ordered venous duplex ultrasound which showed no evidence of occlusion. Also order repeat chest x-ray to evaluate status of pneumonia, which did not demonstrate any acute cardiopulmonary process. Labs essentially unremarkable aside from a minimally elevated white count, likely from recent bacterial pneumonia. Believe that patient's symptoms are due to a cellulitis, as patient states she has been using hydrogen peroxide to treat her pain. I have low suspicion for any deep infection or venous/arterial occlusion. So I will begin the patient on Bactrim to cover for staph. Instructed her to continue her Levaquin until finishing tomorrow, and to keep her follow-up with primary care on Thursday. Patient agrees with plan discharge home. Medical Records I reviewed the patient's medical records. Lab Data I reviewed the patient's lab results. 07/25/23 14:31 07/25/23 14:31 Radiology Impressions Chest X-Ray 07/25/23 13:34 IMPRESSION: No acute cardiothoracic process. Venous Duplex 07/25/23 13:44 IMPRESSION: No evidence of deep vein thrombosis. Laboratory Results WBC 13.01 10^3/uL (3.29-11.43) H 07/25/23 14:31 RBC 4.99 10^6/uL (3.85-5.65) 07/25/23 14:31 Hgb 12.90 g/dL (11.27-16.99) 07/25/23 14:31 Hct 40.9 % (36-47) 07/25/23 14:31 MCV 82.0 fl (85-98) L 07/25/23 14:31 MCH 25.9 pg (27-33) L 07/25/23 14:31 MCHC 31.5 g/dL (30-55) 07/25/23 14:31 RDW 15.8 % (12.1-15.1) H 07/25/23 14:31 Plt Count 455 10^3/cmm (157-399) H 07/25/23 14:31 MPV 9.8 fL (7.4-10.4) 07/25/23 14:31 Neut % (Auto) 65.2 % 07/25/23 14:31 Lymph % (Auto) 25.7 % 07/25/23 14:31 [place] % (Auto) 6.1 % 07/25/23 14:31 Eos % (Auto) 1.7 % 07/25/23 14:31 Baso % (Auto) 0.8 % 07/25/23 14:31 Neut # (Auto) 8.49 10^3/uL (1.8-7.7) H 07/25/23 14:31 Lymph # (Auto) 3.4 10^3/uL (0.8-4.8) 07/25/23 14:31 [place] # (Auto) 0.8 10^3/uL (0.2-0.9) 07/25/23 14:31 Eos # (Auto) 0.2 10^3/uL (0.0-0.8) 07/25/23 14:31 Baso # (Auto) 0.1 10^3/uL (0.0-0.1) 07/25/23 14:31 Nucleated RBC % (auto) 0 % 07/25/23 14:31 Nucleated RBCs # 0.0 /100WBC 07/25/23 14:31 Sodium 133 mmol/L (136-145) L 07/25/23 14:31 Potassium 3.7 mmol/L (3.5-5.1) 07/25/23 14:31 Chloride 102 mmol/L (98-107) 07/25/23 14:31 Carbon Dioxide 17 mmol/L (22-29) L 07/25/23 14:31 Anion Gap 17.7 (5-19) 07/25/23 14:31 BUN 7 mg/dL (6-20) 07/25/23 14:31 Creatinine 0.7 mg/dL (0.5-0.9) 07/25/23 14:31 GFR Calculation 91.8 mL/min (90-130) 07/25/23 14:31 Glucose 100 mg/dL (65-115) 07/25/23 14:31 Calculated Osmolality 274 mOsm/kg (285-295) L 07/25/23 14:31 Calcium 8.7 mg/dL (8.5-10.5) 07/25/23 14:31 Total Bilirubin 0.5 mg/dL (0.15-1.2) 07/25/23 14:31 AST 14 U/L (0-32) 07/25/23 14:31 ALT 9 U/L (0-33) 07/25/23 14:31 Alkaline Phosphatase 124 U/L (35-105) H 07/25/23 14:31 Total Protein 7.7 g/dL (6.6-8.7) 07/25/23 14:31 Albumin 4.0 g/dL (3.5-5.2) 07/25/23 14:31 Globulin 3.7 g/dL (1.3-4.6) 07/25/23 14:31 All radiology interpretation(s) finalized by discharge Discharge Plan Discharge Patient Disposition: Home Clinical Impression: Cellulitis Qualifiers: Site of cellulitis: extremity Site of cellulitis of extremity: lower extremity Laterality: right Qualified Code(s): L03.115 - Cellulitis of right lower limb Condition: Stable Prescriptions: New Bactrim DS 800-160 mg tablet 1 tab PO DAILY 7 Days Qty: 7 0RF No Action acetaminophen [Tylenol] 325 mg capsule 325 mg PO QID PRN (Reason: Pain) ibuprofen 200 mg capsule 200 mg PO Q8H PRN (Reason: Pain) albuterol sulfate 90 mcg/actuation HFA aerosol inhaler 2 inh inhalation Q4H PRN (Reason: shortness of breath or wheezing) 30 Days Qty: 8.5 5RF nystatin 100,000 unit/mL suspension 6 ml PO QID 10 Days Qty: 240 2RF Rx Instructions: swish and swallow Anoro Ellipta 62.5-25 mcg/actuation blister with device 1 inh inhalation DAILY Qty: 60 6RF omeprazole 20 mg capsule,delayed release(DR/EC) 20 mg PO BID Qty: 120 0RF levofloxacin 750 mg tablet 750 mg PO Q24H Qty: 7 0RF fluconazole [Diflucan] 100 mg tablet 100 mg PO DAILY Qty: 10 0RF Asmanex HFA 100 mcg/actuation HFA aerosol inhaler 2 puff inhalation BID Qty: 13 6RF Singulair 10 mg tablet 10 mg PO DAILY PRN (Reason: allergies) Tums 500 500 mg calcium (1,250 mg) Tablet,Chewable 500 mg PO TID PRN (Reason: Indigestion) Discharge Orders: Discharge ED (Routine); Ordered 07/25/23 Ordered By: Rock Anders Referrals: Nghia Campbell DO [Primary Care Provider] - Discharge Diet: Usual diet Discharge Activity: Increase activity as tolerated Patient Instructions: Cellulitis (ED) Activity Restrictions/Additional Instructions: Bactrim as prescribed. Continue finishing your course of Levaquin. You may take your fluconazole beginning tomorrow. Keep follow-up with primary care provider on Thursday. Return if your symptoms worsen, or you develop any fevers or spreading of redness. Coding Level of Care Code ED Travel Specialist for [facility] Documented by User: Johnson Cornell DO 07/27/23 09:28 HPI - Extremity Problem 2 General: Chief complaint: Extremity Problem,Nontraumatic Stated complaint: Right foot pain Time Seen by Provider: 07/25/23 12:59 PFS ED 2 PFSH: Medical History Emphysema, unspecified Marijuana abuse Smoker Surgical History Status post chest tube placement right -- 05/2020 Family History Mother Atelectasis Social History Smoking and tobacco/nicotine status: former use of tobacco/nicotine Quit status (tobacco/nicotine): has quit using Year quit tobacco: 2020 Former quit date comment: Hx of 2-3 PPD x 27 Years Second hand smoke exposure: Yes Alcohol intake: current Alcohol intake frequency: holidays/special occasions only Substance/Drug Use: former Date of last use: 2020 Lives independently: Yes Household members: spouse Marital status: Current occupational status: unemployed Do you think of yourself as: Straight/Heterosexual Current gender identity: Female Course 2 Vital Signs: Vital signs: Vital Signs Temperature 97.4 F L 07/25/23 15:27 Pulse Rate 95 07/25/23 15:27 Respiratory Rate 16 07/25/23 15:27 Blood Pressure 132/86 07/25/23 15:27 Pulse Oximetry 100 07/25/23 15:27 Oxygen Delivery Me thod Room Air 07/25/23 12:52 MDM - Extremity (Nontraumatic) Medical Decision Making Patient was seen in the emergency department today for 1 day of bilateral foot pain, and some redness and swelling in the right foot. Patient has 1 day left on her prescription for Levaquin for recent bacterial pneumonia. Pulse elevated, but otherwise vitals were normal on arrival. Patient's right foot on examination was minimally swollen to the lateral aspect with a bullous lesion with surrounding erythema noted. She was also complaining of some new calf pain and lower extremity numbness/tingling. Ordered venous duplex ultrasound which showed no evidence of occlusion. Also order repeat chest x-ray to evaluate status of pneumonia, which did not demonstrate any acute cardiopulmonary process. Labs essentially unremarkable aside from a minimally elevated white count, likely from recent bacterial pneumonia. Believe that patient's symptoms are due to a cellulitis, as patient states she has been using hydrogen peroxide to treat her pain. I have low suspicion for any deep infection or venous/arterial occlusion. So I will begin the patient on Bactrim to cover for staph. Instructed her to continue her Levaquin until finishing tomorrow, and to keep her follow-up with primary care on Thursday. Patient agrees with plan discharge home. Chart reviewed Lab Data 07/25/23 14:31 07/25/23 14:31 Radiology Impressions Chest X-Ray 07/25/23 13:34 IMPRESSION: No acute cardiothoracic process. Venous Duplex 07/25/23 13:44 IMPRESSION: No evidence of deep vein thrombosis. Laboratory Results WBC 13.01 10^3/uL (3.29-11.43) H 07/25/23 14:31 RBC 4.99 10^6/uL (3.85-5.65) 07/25/23 14:31 Hgb 12.90 g/dL (11.27-16.99) 07/25/23 14:31 Hct 40.9 % (36-47) 07/25/23 14:31 MCV 82.0 fl (85-98) L 07/25/23 14:31 MCH 25.9 pg (27-33) L 07/25/23 14:31 MCHC 31.5 g/dL (30-55) 07/25/23 14:31 RDW 15.8 % (12.1-15.1) H 07/25/23 14:31 Plt Count 455 10^3/cmm (157-399) H 07/25/23 14:31 MPV 9.8 fL (7.4-10.4) 07/25/23 14:31 Neut % (Auto) 65.2 % 07/25/23 14:31 Lymph % (Auto) 25.7 % 07/25/23 14:31 [place] % (Auto) 6.1 % 07/25/23 14:31 Eos % (Auto) 1.7 % 07/25/23 14:31 Baso % (Auto) 0.8 % 07/25/23 14:31 Neut # (Auto) 8.49 10^3/uL (1.8-7.7) H 07/25/23 14:31 Lymph # (Auto) 3.4 10^3/uL (0.8-4.8) 07/25/23 14:31 [place] # (Auto) 0.8 10^3/uL (0.2-0.9) 07/25/23 14:31 Eos # (Auto) 0.2 10^3/uL (0.0-0.8) 07/25/23 14:31 Baso # (Auto) 0.1 10^3/uL (0.0-0.1) 07/25/23 14:31 Nucleated RBC % (auto) 0 % 07/25/23 14:31 Nucleated RBCs # 0.0 /100WBC 07/25/23 14:31 Sodium 133 mmol/L (136-145) L 07/25/23 14:31 Potassium 3.7 mmol/L (3.5-5.1) 07/25/23 14:31 Chloride 102 mmol/L (98-107) 07/25/23 14:31 Carbon Dioxide 17 mmol/L (22-29) L 07/25/23 14:31 Anion Gap 17.7 (5-19) 07/25/23 14:31 BUN 7 mg/dL (6-20) 07/25/23 14:31 Creatinine 0.7 mg/dL (0.5-0.9) 07/25/23 14:31 GFR Calculation 91.8 mL/min (90-130) 07/25/23 14:31 Glucose 100 mg/dL (65-115) 07/25/23 14:31 Calculated Osmolality 274 mOsm/kg (285-295) L 07/25/23 14:31 Calcium 8.7 mg/dL (8.5-10.5) 07/25/23 14:31 Total Bilirubin 0.5 mg/dL (0.15-1.2) 07/25/23 14:31 AST 14 U/L (0-32) 07/25/23 14:31 ALT 9 U/L (0-33) 07/25/23 14:31 Alkaline Phosphatase 124 U/L (35-105) H 07/25/23 14:31 Total Protein 7.7 g/dL (6.6-8.7) 03/09/24 14:31 Albumin 4.0 g/dL (3.5-5.2) 07/25/23 14:31 Globulin 3.7 g/dL (1.3-4.6) 07/25/23 14:31 Discharge Plan Discharge Patient Disposition: Home Clinical Impression: Cellulitis Qualifiers: Site of cellulitis: extremity Site of cellulitis of extremity: lower extremity Laterality: right Qualified Code(s): L03.115 - Cellulitis of right lower limb Condition: Stable Prescriptions: New Bactrim DS 800-160 mg tablet 1 tab PO DAILY 7 Days Qty: 7 0RF No Action acetaminophen [Tylenol] 325 mg capsule 325 mg PO QID PRN (Reason: Pain) ibuprofen 200 mg capsule 200 mg PO Q8H PRN (Reason: Pain) albuterol sulfate 90 mcg/actuation HFA aerosol inhaler 2 inh inhalation Q4H PRN (Reason: shortness of breath or wheezing) 30 Days Qty: 8.5 5RF nystatin 100,000 unit/mL suspension 6 ml PO QID 10 Days Qty: 240 2RF Rx Instructions: swish and swallow Anoro Ellipta 62.5-25 mcg/actuation blister with device 1 inh inhalation DAILY Qty: 60 6RF omeprazole 20 mg capsule,delayed release(DR/EC) 20 mg PO BID Qty: 120 0RF levofloxacin 750 mg tablet 750 mg PO Q24H Qty: 7 0RF fluconazole [Diflucan] 100 mg tablet 100 mg PO DAILY Qty: 10 0RF Asmanex HFA 100 mcg/actuation HFA aerosol inhaler 2 puff inhalation BID Qty: 13 6RF Singulair 10 mg tablet 10 mg PO DAILY PRN (Reason: allergies) Tums 500 500 mg calcium (1,250 mg) Tablet,Chewable 500 mg PO TID PRN (Reason: Indigestion) Discharge Orders: Discharge ED (Routine); Ordered 07/25/23 Ordered By: Rock Anders Referrals: Nghia Campbell DO [Primary Care Provider] - Discharge Diet: Usual diet Discharge Activity: Increase activity as tolerated Patient Instructions: Cellulitis (ED) Activity Restrictions/Additional Instructions: Bactrim as prescribed. Continue finishing your course of Levaquin. You may take your fluconazole beginning tomorrow. Keep follow-up with primary care provider on Thursday. Return if your symptoms worsen, or you develop any fevers or spreading of redness. Coding Level of Care Code ED Travel Specialist for Hermes Abrams
--- NOTE | 2023-07-25 13:34 | XRR_ITS ---
PROCEDURE INFORMATION: Exam: XR Chest Exam date and time: 07/25/2023 1:49 PM Age: 43 years old Clinical indication: Dyspnea and shortness of breath; Prior surgery; Surgery date: 6+ months; Surgery type: Right upper lobectomy. ; Additional info: Pna dx/currently on levaquin TECHNIQUE: Imaging protocol: Radiologic exam of the chest. Views: 2 views. 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 Blunting of the right costophrenic angle, likely related to atelectasis. Pleural spaces: Unremarkable. No pleural effusion. No pneumothorax. Heart/Mediastinum: Unremarkable. No cardiomegaly. Bones/joints: Unremarkable. XR/XR chest 2V* [id number] IMPRESSION: No acute cardiothoracic process.
--- NOTE | 2023-07-25 13:44 | USR_ITS ---
PROCEDURE INFORMATION: Exam: US Duplex Right Lower Extremity Veins, Limited Exam date and time: 07/25/2023 1:59 PM Age: 43 years old Clinical indication: Pain; Leg, lower; Right; Additional info: Right calf pain, numbness TECHNIQUE: Imaging protocol: Real-time duplex ultrasound of the right extremity with 2-D wheeler scale, color Doppler flow and spectral waveform analysis including responses to compression and other maneuvers (when performed) with image documentation. Limited exam was focused on the right lower extremity veins. COMPARISON: No relevant prior studies available. FINDINGS: Right deep veins: Unremarkable. The common femoral, femoral, proximal profunda femoral and popliteal veins are patent without thrombus. Normal Doppler waveforms. Normal compressibility and/or augmentation response. Superficial veins: Greater saphenous vein at the saphenofemoral junction is patent without thrombus. Soft tissues: Unremarkable. US/[place] [id number] IMPRESSION: No evidence of deep vein thrombosis.
[2023-07-25 14:38] LABS: Basophils # 0.1 10^3/uL (0.0-0.1); Basophils % 0.8 %; Eosinophils # 0.2 10^3/uL (0.0-0.8); Eosinophils % 1.7 %; Hematocrit 40.9 % (36-47); Lymphocytes # 3.4 10^3/uL (0.8-4.8); Lymphocytes % 25.7 %; Mean Corpuscular HGB Conc 31.5 g/dL (30-55); Mean Corpuscular Hemoglobin 25.9 pg (27-33); Mean Platelet Volume 9.8 fL (7.4-10.4); Monocytes # 0.8 10^3/uL (0.2-0.9); Monocytes % 6.1 %; Neutrophils # 8.49 10^3/uL (1.8-7.7); Neutrophils % 65.2 %; Nucleated Red Blood Cells % 0 %; Platelet Count 455 10^3/cmm (157-399); Red Blood Count 4.99 10^6/uL (3.85-5.65); Red Cell Distribution Width 15.8 % (12.1-15.1); White Blood Count 13.01 10^3/uL (3.29-11.43)
[2023-07-25 15:00] LABS: Alanine Aminotransferase 9 U/L (0-33); Alkaline Phosphatase 124 U/L (35-105); Aspartate Amino Transferase 14 U/L (0-32); Blood Urea Nitrogen 7 mg/dL (6-20); Calcium 8.7 mg/dL (8.5-10.5); Carbon Dioxide 17 mmol/L (22-29); Chloride 102 mmol/L (98-107); Creatinine Clr Calc Pharmacy 98.1439; Globulin 3.7 g/dL (1.3-4.6); Glomerular Filtration Rate 91.8 mL/min (90-130); Glucose 100 mg/dL (65-115); Osmolality Calculated 274 mOsm/kg (285-295); Sodium 133 mmol/L (136-145); Total Bilirubin 0.5 mg/dL (0.15-1.2); Total Protein 7.7 g/dL (6.6-8.7)
[2023-07-25 15:04] LABS: Anion Gap 17.7 (5-19); Potassium 3.7 mmol/L (3.5-5.1)
[2023-07-25 15:27] VITALS: BP 132/86; PULSE 95; RESP 16; TEMP 36.3; O2SAT 100
--- NOTE | 2023-07-25 16:45 | PC.NURSE ---
bactrim ds script called into [facility]
== END 2023-07-25 15:40 | disposition home or self-care (01) ==
PROVIDERS: Emergency Provider Physician Assistant; PCP Family Medicine
DX: L03.115 Cellulitis of right lower limb (principal); Z87.891 Personal history of nicotine dependence
CPT/HCPCS: 36415; 71046; 80053; 85025; 93971; 99284

== ENCOUNTER → 2024-07-22 11:42 | Outpatient (BNVA) | payer MEDICAID, SELFPAY | PROVIDERS: PCP Nurse Practitioner Family; Visit Provider Nurse Practitioner Family | DX: J02.9 Acute pharyngitis, unspecified (principal); B34.9 Viral infection, unspecified | CPT/HCPCS: 87071; 87400; 87420; 87426; 87880 ==

== ENCOUNTER → 2025-05-17 09:54 | Outpatient (BNVA) | payer MEDICAID, SELFPAY | PROVIDERS: PCP Nurse Practitioner Family; Visit Provider Nurse Practitioner Family | DX: J06.9 Acute upper respiratory infection, unspecified (principal); R06.02 Shortness of breath; J94.8 Other specified pleural conditions | CPT/HCPCS: 71046; 87071; 87400; 87426; 87880 ==